=== PATIENT | female | born 1985 | race Caucasian/White ===

== ENCOUNTER 2017-08-09 12:05 | Inpatient (IN) | payer MEDICAID, SELFPAY ==
[2017-08-09] VITALS (14 sets, daily range): BP systolic 68–135; BP diastolic 44–86; PULSE 94–126; RESP 16–22; TEMP 36.2–38.1; O2SAT 96–100; BMI 24.5; BMI 25.2
--- NOTE | 2017-08-09 12:35 | RAD_ITS ---
STUDY: X-RAY CHEST REASON FOR EXAM: Female, 32 years old. Headaches, fever and body aches. TECHNIQUE: Single AP portable view of the chest. COMPARISON: Comparison is made with prior study dated June 09, 2012. FINDINGS: The lungs are clear and expanded. Scattered calcified granulomas. There is no demonstrated pleural abnormality. Sternal cerclage wires are present from a prior sternotomy. Mitral valve replacement. External pacemaker is seen with the battery pack overlying the left lower quadrant. Normal mediastinum and demetra. Normal visualized pulmonary arteries. Normal visualized aortic arch and descending thoracic aorta. Normal visualized thoracic spine. Normal visualized ribs, clavicles, and shoulders. There is no demonstrated abnormality of the visualized soft tissue structures of the upper abdomen. RAD/Chest 1 View (Portable) IMPRESSION: Status post mitral valve replacement. No acute abnormality is seen. Electronically Signed: Carlos Resendez MD at 12:59 EST Tel [phone], Service support ,
[2017-08-09] MEDS: 0.9% Normal Saline 1,000 ML 1000 ML IV ×3 (13:05→16:52)
[2017-08-09 13:29] LABS: ALB/GLOB Ratio 0.7 RATIO (0.9-2.4); AST(SGOT) 17 U/L (15-37); Alanine Aminotransfer ALT/SGPT 18 U/L (13-56); Albumin, Serum 2.3 g/dL (3.2-5.0); Alkaline Phosphatase 81 U/L (45-117); Anion Gap 9 (5-15); BUN 11 mg/dL (7-18); BUN/Creat Ratio 15.4 RATIO (10-20); Calcium,Total 7.5 mg/dL (8.5-10.1); Chloride 97 mmol/L (98-107); Creatinine, Serum 0.71 mg/dL (0.55-1.02); EST Glomerular Filtration Rate 102 mL/min (>60); Est Glom Filt Rate - Afr Amer 124 mL/min (>60); Estimated Creatinine Clearance 100.05 ml/min; Globulin 3.4 g/dL (2.2-4.2); Glucose 112 mg/dL (74-106); Protein, Total 5.7 g/dL (6.4-8.2); Sodium Level 134 mmol/L (136-145)
[2017-08-09] MEDS: Ketorolac 30 MG/ML Syringe IV (13:51)
[2017-08-09 14:21] LABS: Absolute Neutrophil Count 5.9 X10^3/uL (2.0-7.7); Basophil# 0.01 X10^3/uL; Basophil% 0.1 % (0-1); Eosinophil# 0.01 X10^3/uL; Eosinophils% 0.1 % (0-5); Hematocrit 29.9 % (37-47); Hemoglobin 10.1 g/dl (12.0-15.0); Lymphocyte % 10.4 % (19-41); Mean Corp Hgb Conc 33.8 g/gl (32-36); Mean Corpuscular Hgb 30.3 pg (27.0-32.0); Mean Corpuscular Volume 89.8 fL (81-99); Mean Platelet Vol. 12.5 fl (6.2-12.0); Monocyte# 0.91 X10^3/uL; Monocyte% 11.8 % (0-10); Neutrophil % 76.8 % (47-70); Platelet Count 51 K/mm3 (150-450); RBC Distribution Width CV 12.2 % (11.6-14.6); RBC Distribution Width SD 38.7 fl (35.1-43.9); Red Blood Count 3.33 M/mm3 (4.2-5.4); White Blood Count 7.7 K/mm3 (4.4-11.0)
[2017-08-09 14:23] LABS: POSITIVE COUNT NO; POSITIVE DIFFERENTIAL NO; POSITIVE MORPHOLOGY NO
[2017-08-09 14:43] LABS: Red Blood Cells-Urine 0 SEEN /hpf (0-5)
[2017-08-09 14:46] LABS: Color, Urine Yellow (Yellow); Glucose, Dipstick Normal (Normal); Ketone-Dipstick 5 mg/dl (Negative); Leukocyte Esterase-Dipstick 100 /ul (Negative); Nitrite-Dipstick Negative (Negative); Occult Blood-Urine 25 /ul (Negative); Protein-Dipstick 30 mg/dl (Negative); Urine Clarity Sl. Cloudy (Clear); Urine Urobilinogen 8 mg/dl (Normal)
[2017-08-09 14:51] LABS: Urine Bilirubin Dipstick 1 mg/dL (Negative)
[2017-08-09 14:53] LABS: White Blood Cells 25-50 SEEN /hpf (0-5)
[2017-08-09 14:54] LABS: Bacteria 3+ /hpf (None Seen); Mucous, Urine RARE /hpf (<or=2+); Squamous Epithelial Cells - UA 25-50 SEEN /hpf (5-10)
[2017-08-09] MEDS: Ceftriaxone 1 GM/50 ML BAG IV (15:25)
--- NOTE | 2017-08-09 15:38 | ED.VISSUMM ---
- ER Visit Summary Date of Service: 08/09/17 Chief Complaint: [Body aches] History of Present Illness: The patient is a 32 F [presents to the emergency department stating she has not been feeling well for the last 4 days. Patient states that she just hurts all over and is drinking water frequently. Patient feels like she might be dehydrated. Patient states that she is concerned about a infection in her bloodstream as she uses IV drugs and last used methamphetamines for 5 days ago. 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 Patient denies any dysuria. She denies sore throat or cough. She denies any abdominal pain. She denies any vomiting or diarrhea. Patient did not know she had a fever until she was told she had one now on arrival to the emergency department.] Physical Examination: [HEKAT-PERRLA, ANICETOMI. Cranial nerves II through XII grossly intact. TMs clear. Mucous membranes moist. No adenopathy. Cardiovascular-regular rate and rhythm without murmur or ectopy Lungs-clear to auscultation, chest wall stable without crepitus or subcu emphysema Abdomen-normoactive bowel sounds, soft, nontender, no rebound or rigidity, no peritoneal signs. Extremities-intact ?4, normal range of motion, normal pulses, atraumatic]. Patient has multiple track curry on the upper extremities. No Janeway lesions noted. Test Results: [CBC with differential showed white count 7.7, heme globin 10, hematocrit 30, platelets 51. Chemistries unremarkable. Influenza was negative. Lactate was 2.0. Chest x-ray showed nothing acute. Urinalysis obtained was a dirty specimen but did have +3 bacteria and 25-50 WBCs but also had 25-50 epis and 100 leukocyte esterase. A catheterized specimen was ordered.] Emergency Department Course and Treatment: [Patient had blood cultures ordered and had a liter normal same fluid bolus given. Patient continues to remain hypotensive and tachycardic. Patient was started on Rocephin and vancomycin IV.] Treatment Plan: [Admit for IV fluids and IV antibiotics.] Disposition: [Admit] Impression: [Sepsis syndrome Hypotension Thrombocytopenia This note was generated with Snapvine dictation software. It may contain incorrect words, spelling, and punctuation that were not noted in review of the chart prior to signing ED Disposition - Plan for ED Patient: Chief Complaint: General Illness Referrals: Care Physician,No Primary [Primary Care Provider] -
--- NOTE | 2017-08-09 15:41 | ED.DCSUM_ITS ---
- ER Visit Summary Date of Service: 08/09/17 Chief Complaint: [Body aches] History of Present Illness: The patient is a 32 F [presents to the emergency department stating she has not been feeling well for the last 4 days. Patient states that she just hurts all over and is drinking water frequently. Patient feels like she might be dehydrated. Patient states that she is concerned about a infection in her bloodstream as she uses IV drugs and last used methamphetamines for 5 days ago. 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 Patient denies any dysuria. She denies sore throat or cough. She denies any abdominal pain. She denies any vomiting or diarrhea. Patient did not know she had a fever until she was told she had one now on arrival to the emergency department.] Physical Examination: [HEKAT-PERRLA, ANICETOMI. Cranial nerves II through XII grossly intact. TMs clear. Mucous membranes moist. No adenopathy. Cardiovascular-regular rate and rhythm without murmur or ectopy Lungs-clear to auscultation, chest wall stable without crepitus or subcu emphysema Abdomen-normoactive bowel sounds, soft, nontender, no rebound or rigidity, no peritoneal signs. Extremities-intact ?4, normal range of motion, normal pulses, atraumatic]. Patient has multiple track curry on the upper extremities. No Janeway lesions noted. Test Results: [CBC with differential showed white count 7.7, heme globin 10, hematocrit 30, platelets 51. Chemistries unremarkable. Influenza was negative. Lactate was 2.0. Chest x-ray showed nothing acute. Urinalysis obtained was a dirty specimen but did have +3 bacteria and 25-50 WBCs but also had 25-50 epis and 100 leukocyte esterase. A catheterized specimen was ordered. ] Emergency Department Course and Treatment: [Patient had blood cultures ordered and had a liter normal same fluid bolus given. Patient continues to remain hypotensive and tachycardic. Patient was started on Rocephin and vancomycin IV. ] Treatment Plan: [Admit for IV fluids and IV antibiotics.] Disposition: [Admit] Impression: [Sepsis syndrome Hypotension Thrombocytopenia This note was generated with Cherrish dictation software. It may contain incorrect words, spelling, and punctuation that were not noted in review of the chart prior to signing ED Disposition - Plan for ED Patient: Chief Complaint: General Illness Referrals: Care Physician,No Primary [Primary Care Provider] -
--- NOTE | 2017-08-09 16:40 | PCM.HP.STD ---
Problem List (1) FUO (fever of unknown origin) Status: Acute (2) Hx of mitral valve replacement Status: Chronic Comment: bioprosthetic valve (3) Hx of bacterial endocarditis Status: Chronic (4) IV drug abuse Status: Chronic Comment: IV methamphetamine currently, heroin in the past (5) Hypokalemia Status: Acute (6) Hypotension Status: Acute History of Present Illness Date of Admission: 08/09/17 Chief Complaint: myalgias and arthralgias The patient is a 32 year old F with a PMH of bacterial endocarditis, bioprosthetic mitral valve replacement and intravenous drug abuse who presented to the emergency department at [facility] on 08/09/2017 complaining of diffuse myalgias and arthralgias, fever and ARGUETA. She was recently in senior living for parole violation (drug screen was +) and got out on 07/25. Since getting out she has started to use IV meth again. Tells me her last use was 6 days ago. She denies cough, dysuria, vaginal DC, CP, SOB, Sore throat, N/V/Abd pain. Denies any hx of hepatitis or HIV. She is sexually active but denies vaginal DC. Has not seen a industrial maintenance instructor since the [facility]. She has several missing teeth and caries present. Denies pain in the jaw. Vital signs at presentation to the emergency room are temperature 100.6, pulse rate 126, blood pressure 99/56, respiratory rate 18-22 and she is 98-100% saturated on room air. Blood pressure standing was 79/49. White blood cell count was 7.7 with 77% neutrophils. Hemoglobin was 10.1 with a normal MCV and normal RDW. Platelets were low at 51,000. Sodium is low at 134 and the potassium is 3.0. BUN is 11 with a creatinine of 0.71. Lactic acid is 2.0. Corrected serum calcium is within normal limits. LFTs are unremarkable. A clean catch urine was obtained and had 25-50 WBCs and 25-50 squamous epithelial cells. A straight cath urine was then obtained and is pending at this time. Urine drug screen is positive for amphetamines. X-ray shows no infiltrates, pleural effusions or pulmonary vascular congestion. She is being admitted to the hospital with a diagnosis of FUO...suspect possible endocarditis. 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 The MV replacement was done at [facility]. Past Medical History Past Medical History (Chronic Problems): Chronic Problems Hx of mitral valve replacement (Chronic) bioprosthetic valve Hx of bacterial endocarditis (Chronic) IV drug abuse (Chronic) IV methamphetamine currently, heroin in the past Allergies No Known Allergies Allergy (Verified 08/09/17 12:06) Home Medications: Ambulatory Orders Medication Instructions Recorded NK [NK] 08/09/17 Surgical History: cholecystectomy, - - section ?3, mitral valve replacement with a bioprosthetic valve at [facility] Psychiatric History: No pertinent psych hx REGISTERED PRIVATE DUTY NURSE 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 Smoking Status: Former smoker - quit recently when she was incarcerated Tobacco Use: Non-smoker Alcohol: Rare Drugs: - - IV meth - *Family History Maternal History Items: Cancer - breast CA Paternal History Items: - - colon CA Review of Systems Constitutional: Reports: Fever, Malaise, Weakness Eyes: Denies: Blurred vision, Redness, Vision Change HEENT: Reports: Head Aches. Denies: Sinus Congestion, Sinus Drainage Cardiovascular: Denies: Chest Pain, Light Headedness Respiratory: Denies: Cough, Pleuritic Pain, Shortness of Breath Gastrointestinal: Denies: Abdominal Pain, Diarrhea, Dyspepsia, Nausea, Vomiting Genitourinary: Denies: Dysuria, Frequency, Hesitancy Gynecological: Reports: - - she is sexually active. Denies: Breast symptoms, Vaginal discharge, Vaginal itching Musculoskeletal: Reports: Joint Pain, Muscle pain Skin: Denies: Jaundice, Rash, Wounds Neurological: Denies: Numbness, Tingling, Focal weakness Psychiatric: Denies: Anxiety, Depression, Homicidal Ideations, Suicidal Ideations Endocrine: Denies: Heat/ Cold Intolerance, Hx of Thyroiditis Hematologic/ Lymphatic: Denies: Hx of blood clot VTE Information - Inpt Only VTE Present on Admission: No VTE Mechan Device Prophylaxis: Knee High BLU Hose VTE Pharm Prophylaxis ordered?: Yes Patient Problems: Active and Suspected Problems FUO (fever of unknown origin) (Acute) Hypokalemia (Acute) Hypotension (Acute) - Physical Exam General: Alert, Oriented x3, Cooperative, No apparent distress, - - looks ill and is very pale HEENT: Atraumatic, PERRLA, EOMI, Normocephalic Oral: No Gingival or Mucosal Lesions/ Ulcerations, Dry Mucosa, - - she has several missing teeth and has some caries in the remaining Neck: Supple, No JVD, Negative Carotid Bruits, No Nodes, No Nuchal Rigidity, Trachea Midline Lungs: Clear to auscultation, No rhonchi, No wheeze, No rales Cardiovascular: Regular Rhythm, No Ectopic Activity, Gallops, Murmur - soft systolic MM Left axilla,, Tachycardic, - - monitor is showing ST with no ectopic activity Abdomen: Bowel Sounds Present, Soft, Non Tender, Non-Distended, - - No guarding with palpation Extremities: No clubbing, No cyanosis, No edema, No Calf Tenderness, Peripheral Pulses Normal Skin: No rashes, - - She has some track curry on the arm Neurological: Cranial nerves II-XII grossly intact, Neuro grossly intact Psych/Mental Status: Normal Affect, Appropriate Vital Signs Temp Pulse Resp BP Pulse Ox 100.6 F H 101 H 16 97/49 L 96 08/09/17 12:07 08/09/17 16:06 08/09/17 16:06 08/09/17 16:06 08/09/17 16:06 Oxygen Delivery Method Room Air Weight: 143 lb 4.807 oz Body Mass Index (BMI) 24.5 Microbiology Past 72 Hours 08/09/17 12:30 Influenza Types A,B Direct FA (ELADIA) - Final Mucosa - Nasopharyngeal Laboratory Tests Past 24 Hrs 08/09/17 08/09/17 08/09/17 13:00 13:00 13:00 WBC 7.7 RBC 3.33 L Hgb 10.1 L Hct 29.9 L MCV 89.8 MCH 30.3 MCHC 33.8 RDW 12.2 RDW Differential 38.7 Plt Count 51 L MPV 12.5 H Immature Gran % (Auto) 0.800 Neut % (Auto) 76.8 H Lymph % (Auto) 10.4 L [place] % (Auto) 11.8 H Eos % (Auto) 0.1 Baso % (Auto) 0.1 Absolute Neuts (auto) 5.9 Absolute Lymphs (auto) 0.80 L Total Counted Not Reportable Sodium 134 L Potassium 3.0 L Chloride 97 L Carbon Dioxide 28.0 Anion Gap 9 BUN 11 Creatinine 0.71 Estim Creat Clear Calc 100.05 Est GFR (MDRD) Af Amer 124 Est GFR (MDRD) Non-Af 102 BUN/Creatinine Ratio 15.4 Glucose 112 H Lactic Acid 2.0 Calcium 7.5 L Total Bilirubin 1.00 AST 17 ALT 18 Alkaline Phosphatase 81 Total Protein 5.7 L Albumin 2.3 L Globulin 3.4 Albumin/Globulin Ratio 0.7 L Urine Color Urine Clarity Urine pH Ur Specific [place] Urine Protein Urine Glucose (UA) Urine Ketones Urine Occult Blood Urine Nitrite Urine Bilirubin Urine Urobilinogen Ur Leukocyte Esterase Urine RBC Urine WBC Ur Squamous Epith Cells Urine Bacteria Urine Mucus Urine Opiates Screen Urine Methadone Screen Ur Barbiturates Screen Ur Phencyclidine Scrn Ur Amphetamines Screen U Methamphetamin-MDMA U Benzodiazepines Scrn Urine Cocaine Screen U Cannabinoids Screen Ur Drug Screen Comment 08/09/17 08/09/17 14:30 16:00 WBC RBC Hgb Hct MCV MCH MCHC RDW RDW Differential Plt Count MPV Immature Gran % (Auto) Neut % (Auto) Lymph % (Auto) [place] % (Auto) Eos % (Auto) Baso % (Auto) Absolute Neuts (auto) Absolute Lymphs (auto) Total Counted Sodium Potassium Chloride Carbon Dioxide Anion Gap BUN Creatinine Estim Creat Clear Calc Est GFR (MDRD) Af Amer Est GFR (MDRD) Non-Af BUN/Creatinine Ratio Glucose Lactic Acid Calcium Total Bilirubin AST ALT Alkaline Phosphatase Total Protein Albumin Globulin Albumin/Globulin Ratio Urine Color Yellow Urine Clarity Sl. Cloudy Urine pH 6.0 Ur Specific [place] 1.010 Urine Protein 30 H Urine Glucose (UA) Normal Urine Ketones 5 H Urine Occult Blood 25 H Urine Nitrite Negative Urine Bilirubin 1 H Urine Urobilinogen 8 H Ur Leukocyte Esterase 100 H Urine RBC 0 SEEN Urine WBC 25-50 SEEN Ur Squamous Epith Cells 25-50 SEEN Urine Bacteria 3+ Urine Mucus RARE Urine Opiates Screen Pending Urine Methadone Screen Pending Ur Barbiturates Screen Pending Ur Phencyclidine Scrn Pending Ur Amphetamines Screen Pending U Methamphetamin-MDMA Pending U Benzodiazepines Scrn Pending Urine Cocaine Screen Pending U Cannabinoids Screen Pending Ur Drug Screen Comment Assessment/Plan Active and Suspected Problems FUO (fever of unknown origin) (Acute) Hypokalemia (Acute) Hypotension (Acute) Impressions 1. FUO - doubt UTI since she is asymptomatic. Suspect recurrent endocarditis 2. Hypotension - corrected with IVF 3. hx of IV drug abuse 4. hx of bacterial endocarditis - S/P bioprosthetic MV replacement 5. poor dental hygiene 6. hypokalemia 7. Hyponatremia Admit to a monitored bed on PCU continue the Vanco and the Rocephin started in the ER BC's were drawn in the ER and she has had a straight cath urine sent ECHO HIV, hepatitis panel If the UA is negative will consult ID to participate in management Continue IVF's and replace the potassium If the UA is negative will consult Cardiology Obtain records from [facility] for DVT prophylaxis Serial CE's
[2017-08-09 16:50] LABS: Amphetamine Urine VISTA POSITIVE (<1000 ng/mL); Barbiturate Urine VISTA NEGATIVE (< 200 ng/mL); Benzodiazepine Urine VISTA NEGATIVE (< 200 ng/mL); Cocaine Urine VISTA NEGATIVE (< 300 ng/mL); Ecstacy Urine VISTA NEGATIVE (< 500 ng/mL); Methadone Urine VISTA NEGATIVE (< 300 ng/mL); PCP Urine VISTA NEGATIVE (< 25 ng/mL); THC Urine VISTA NEGATIVE (< 50 ng/mL); Vista UDS pH Range 5
--- NOTE | 2017-08-09 16:59 | HP.PCM_ITS ---
Problem List (1) FUO (fever of unknown origin) Status: Acute (2) Hx of mitral valve replacement Status: Chronic Comment: bioprosthetic valve (3) Hx of bacterial endocarditis Status: Chronic (4) IV drug abuse Status: Chronic Comment: IV methamphetamine currently, heroin in the past (5) Hypokalemia Status: Acute (6) Hypotension Status: Acute History of Present Illness Date of Admission: 08/09/17 Chief Complaint: myalgias and arthralgias The patient is a 32 year old F with a PMH of bacterial endocarditis, bioprosthetic mitral valve replacement and intravenous drug abuse who presented to the emergency department at [facility] on 08/09/2017 complaining of diffuse myalgias and arthralgias, fever and ARGUETA. She was recently in [facility] for [facility] (drug screen was +) and got out on . Since getting out she has started to use IV meth again. Tells me her last use was 6 days ago. She denies cough, dysuria, vaginal DC, CP, SOB, Sore throat , N/V/Abd pain. Denies any hx of hepatitis or HIV. She is sexually active but denies vaginal DC. Has not seen a metallurgical laboratory assistant since the [facility]. She has several missing teeth and caries present. Denies pain in the jaw. Vital signs at presentation to the emergency room are temperature 100.6, pulse rate 126, blood pressure 99/56, respiratory rate 18-22 and she is 98-100% saturated on room air. Blood pressure standing was 79/49. White blood cell count was 7.7 with 77 % neutrophils. Hemoglobin was 10.1 with a normal MCV and normal RDW. Platelets were low at 51,000. Sodium is low at 134 and the potassium is 3.0. BUN is 11 with a creatinine of 0.71. Lactic acid is 2.0. Corrected serum calcium is within normal limits. LFTs are unremarkable. A clean catch urine was obtained and had 25-50 WBCs and 25-50 squamous epithelial cells. A straight cath urine was then obtained and is pending at this time. Urine drug screen is positive for amphetamines. X-ray shows no infiltrates, pleural effusions or pulmonary vascular congestion. She is being admitted to the hospital with a diagnosis of FUO...suspect possible endocarditis. 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 The MV replacement was done at [facility]. Past Medical History Past Medical History (Chronic Problems): Chronic Problems Hx of mitral valve replacement (Chronic) bioprosthetic valve Hx of bacterial endocarditis (Chronic) IV drug abuse (Chronic) IV methamphetamine currently, heroin in the past Allergies No Known Allergies Allergy (Verified 08/09/17 12:06) Home Medications: Ambulatory Orders Medication Instructions Recorded NK [NK] 08/09/17 Surgical History: cholecystectomy, - - section ?3, mitral valve replacement with a bioprosthetic valve at [facility] Psychiatric History: No pertinent psych hx PLATE SHOP HELPER History: No pertinent PLATE SHOP HELPER history Lives: With Family - she is currently living with her GM. Smoking Status: Former smoker - quit recently when she was incarcerated Tobacco Use: Non-smoker Alcohol: Rare Drugs: - - IV meth - *Family History Maternal History Items: Cancer - breast CA Paternal History Items: - - colon CA Review of Systems Constitutional: Reports: Fever, Malaise, Weakness Eyes: Denies: Blurred vision, Redness, Vision Change HEENT: Reports: Head Aches. Denies: Sinus Congestion, Sinus Drainage Cardiovascular: Denies: Chest Pain, Light Headedness Respiratory: Denies: Cough, Pleuritic Pain, Shortness of Breath Gastrointestinal: Denies: Abdominal Pain, Diarrhea, Dyspepsia, Nausea, Vomiting Genitourinary: Denies: Dysuria, Frequency, Hesitancy Gynecological: Reports: - - she is sexually active. Denies: Breast symptoms, Vaginal discharge, Vaginal itching Musculoskeletal: Reports: Joint Pain, Muscle pain Skin: Denies: Jaundice, Rash, Wounds Neurological: Denies: Numbness, Tingling, Focal weakness Psychiatric: Denies: Anxiety, Depression, Homicidal Ideations, Suicidal Ideations Endocrine: Denies: Heat/ Cold Intolerance, Hx of Thyroiditis Hematologic/ Lymphatic: Denies: Hx of blood clot VTE Information - Inpt Only VTE Present on Admission: No VTE Mechan Device Prophylaxis: Knee High BLU Hose VTE Pharm Prophylaxis ordered?: Yes Patient Problems: Active and Suspected Problems FUO (fever of unknown origin) (Acute) Hypokalemia (Acute) Hypotension (Acute) - Physical Exam General: Alert, Oriented x3, Cooperative, No apparent distress, - - looks ill and is very pale HEENT: Atraumatic, PERRLA, EOMI, Normocephalic Oral: No Gingival or Mucosal Lesions/ Ulcerations, Dry Mucosa, - - she has several missing teeth and has some caries in the remaining Neck: Supple, No JVD, Negative Carotid Bruits, No Nodes, No Nuchal Rigidity, Trachea Midline Lungs: Clear to auscultation, No rhonchi, No wheeze, No rales Cardiovascular: Regular Rhythm, No Ectopic Activity, Gallops, Murmur - soft systolic MM Left axilla,, Tachycardic, - - monitor is showing ST with no ectopic activity Abdomen: Bowel Sounds Present, Soft, Non Tender, Non-Distended, - - No guarding with palpation Extremities: No clubbing, No cyanosis, No edema, No Calf Tenderness, Peripheral Pulses Normal Skin: No rashes, - - She has some track curry on the arm Neurological: Cranial nerves II-XII grossly intact, Neuro grossly intact Psych/Mental Status: Normal Affect, Appropriate Vital Signs Temp Pulse Resp BP Pulse Ox 100.6 F H 101 H 16 97/49 L 96 08/09/17 12:07 08/09/17 16:06 08/09/17 16:06 08/09/17 16:06 08/09/17 16:06 Oxygen Delivery Method Room Air Weight: 143 lb 4.807 oz Body Mass Index (BMI) 24.5 Microbiology Past 72 Hours 08/09/17 12:30 Influenza Types A,B Direct FA (ELADIA) - Final Mucosa - Nasopharyngeal Laboratory Tests Past 24 Hrs 08/09/17 08/09/17 08/09/17 13:00 13:00 13:00 WBC 7.7 RBC 3.33 L Hgb 10.1 L Hct 29.9 L MCV 89.8 MCH 30.3 MCHC 33.8 RDW 12.2 RDW Differential 38.7 Plt Count 51 L MPV 12.5 H Immature Gran % (Auto) 0.800 Neut % (Auto) 76.8 H Lymph % (Auto) 10.4 L [place] % (Auto) 11.8 H Eos % (Auto) 0.1 Baso % (Auto) 0.1 Absolute Neuts (auto) 5.9 Absolute Lymphs (auto) 0.80 L Total Counted Not Reportable Sodium 134 L Potassium 3.0 L Chloride 97 L Carbon Dioxide 28.0 Anion Gap 9 BUN 11 Creatinine 0.71 Estim Creat Clear Calc 100.05 Est GFR (MDRD) Af Amer 124 Est GFR (MDRD) Non-Af 102 BUN/Creatinine Ratio 15.4 Glucose 112 H Lactic Acid 2.0 Calcium 7.5 L Total Bilirubin 1.00 AST 17 ALT 18 Alkaline Phosphatase 81 Total Protein 5.7 L Albumin 2.3 L Globulin 3.4 Albumin/Globulin Ratio 0.7 L Urine Color Urine Clarity Urine pH Ur Specific [place] Urine Protein Urine Glucose (UA) Urine Ketones Urine Occult Blood Urine Nitrite Urine Bilirubin Urine Urobilinogen Ur Leukocyte Esterase Urine RBC Urine WBC Ur Squamous Epith Cells Urine Bacteria Urine Mucus Urine Opiates Screen Urine Methadone Screen Ur Barbiturates Screen Ur Phencyclidine Scrn Ur Amphetamines Screen U Methamphetamin-MDMA U Benzodiazepines Scrn Urine Cocaine Screen U Cannabinoids Screen Ur Drug Screen Comment 08/09/17 08/09/17 14:30 16:00 WBC RBC Hgb Hct MCV MCH MCHC RDW RDW Differential Plt Count MPV Immature Gran % (Auto) Neut % (Auto) Lymph % (Auto) [place] % (Auto) Eos % (Auto) Baso % (Auto) Absolute Neuts (auto) Absolute Lymphs (auto) Total Counted Sodium Potassium Chloride Carbon Dioxide Anion Gap BUN Creatinine Estim Creat Clear Calc Est GFR (MDRD) Af Amer Est GFR (MDRD) Non-Af BUN/Creatinine Ratio Glucose Lactic Acid Calcium Total Bilirubin AST ALT Alkaline Phosphatase Total Protein Albumin Globulin Albumin/Globulin Ratio Urine Color Yellow Urine Clarity Sl. Cloudy Urine pH 6.0 Ur Specific [place] 1.010 Urine Protein 30 H Urine Glucose (UA) Normal Urine Ketones 5 H Urine Occult Blood 25 H Urine Nitrite Negative Urine Bilirubin 1 H Urine Urobilinogen 8 H Ur Leukocyte Esterase 100 H Urine RBC 0 SEEN Urine WBC 25-50 SEEN Ur Squamous Epith Cells 25-50 SEEN Urine Bacteria 3+ Urine Mucus RARE Urine Opiates Screen Pending Urine Methadone Screen Pending Ur Barbiturates Screen Pending Ur Phencyclidine Scrn Pending Ur Amphetamines Screen Pending U Methamphetamin-MDMA Pending U Benzodiazepines Scrn Pending Urine Cocaine Screen Pending U Cannabinoids Screen Pending Ur Drug Screen Comment Assessment/Plan Active and Suspected Problems FUO (fever of unknown origin) (Acute) Hypokalemia (Acute) Hypotension (Acute) Impressions 1. FUO - doubt UTI since she is asymptomatic. Suspect recurrent endocarditis 2. Hypotension - corrected with IVF 3. hx of IV drug abuse 4. hx of bacterial endocarditis - S/P bioprosthetic MV replacement 5. poor dental hygiene 6. hypokalemia 7. Hyponatremia Admit to a monitored bed on PCU continue the Vanco and the Rocephin started in the ER BC's were drawn in the ER and she has had a straight cath urine sent ECHO HIV, hepatitis panel If the UA is negative will consult ID to participate in management Continue IVF's and replace the potassium If the UA is negative will consult Cardiology Obtain records from [facility] for DVT prophylaxis Serial CE's
[2017-08-09] MEDS: Acetaminophen 500 MG Tablet 1000 MG PO (17:33)
[2017-08-09 18:23] LABS: Internal QC Validated? YES +Cl - CLEAR BKGD; Pregnancy, Urine Negative Negative
[2017-08-09 19:04] LABS: Erythrocyte Sedimentation Rate 5 mm/hr (0-20)
[2017-08-09] MEDS: Ibuprofen 600 MG Tablet PO (19:04)
[2017-08-09 19:14] LABS: International Normalized Ratio 1.4; Prothrombin Time (Protime)PT. 17.6 SECONDS (11.7-14.9)
[2017-08-09 19:15] LABS: Partial Thromboplast Time 50.8 Seconds (24.1-36.2)
[2017-08-09 19:19] LABS: Magnesium 1.7 mg/dL (1.6-2.6)
[2017-08-09 22:56] LABS: M R Staph aureus DNA By PCR POSITIVE (Negative); Probe Check PASS
[2017-08-09] MEDS: 0.9% Normal Saline 1,000 ML 999 ML IV (23:21)
[2017-08-10] VITALS (65 sets, daily range): BP systolic 65–124; BP diastolic 35–75; PULSE 96–123; RESP 16–31; TEMP 36.2–38.7; O2SAT 91–100
[2017-08-10] MEDS: Piperacil/Tazobactam 3.375 GM/50 ML ML IV ×4 (00:25→21:15)
[2017-08-10] MEDS: 0.9% NaCl Peripheral Flush Adult/Peds IV ×5 (00:25→21:16)
[2017-08-10] MEDS: 0.9% Normal Saline 1,000 ML 250 ML IV ×2 (00:25→02:18)
--- NOTE | 2017-08-10 01:05 | NURSING ---
report called to Sally in ICU
--- NOTE | 2017-08-10 01:15 | NURSING ---
Offered to call any family or friends to alert them about change of status, but patient refused
--- NOTE | 2017-08-10 01:25 | RAD_ITS ---
STUDY: X-RAY CHEST REASON FOR EXAM: Female, 32 years old. Central line placement TECHNIQUE: Single frontal view COMPARISON: 08/09/2017 FINDINGS: There is a RIGHT-sided central venous catheter. The tip is in the superior vena cava. There are bibasilar infiltrates greater on the RIGHT. There is NO pleural effusion. There is NO pneumothorax. Normal size heart. There has been open heart surgery. Normal visualized pulmonary arteries. Normal visualized aortic arch and descending thoracic aorta. Normal visualized thoracic spine. Normal visualized ribs, clavicles, and shoulders. There is no demonstrated abnormality of the visualized soft tissue structures of the upper abdomen. RAD/CXR for Line Placement IMPRESSION: There is a RIGHT-sided central venous catheter. The tip is in the superior vena cava. There are bibasilar infiltrates greater on the RIGHT. There is NO pleural effusion. There is NO pneumothorax. Normal size heart. There has been open heart surgery. Electronically Signed: Will Green MD at 3:30 EST , Service support ,
--- NOTE | 2017-08-10 01:45 | NURSING ---
Dr. Caba at bedside to insert central line. Informed consent signed by patient and witnessed by this RN.
[2017-08-10] MEDS: oxyCODONE 5 MG Tablet PO ×2 (02:37→09:00)
--- NOTE | 2017-08-10 02:38 | PCM.OP.BLANK ---
Problem List (1) poor peripheral iv line Status: Acute (2) Septic shock Status: Acute Operative Report Date of Procedure: 08/10/17 Procedure note for right subclavian central venous catheter placement Indication: Need for vasopressor for septic shock. Poor peripheral line access. IV drug use. Patient signed informed consent after risk and benefit were explained. Right subclavian region and neck was sterilized and draped. Under local anesthesia, right subclavian vein was accessed. Under guidewire, triple line central venous catheter was inserted. Good blood flow return confirmed. No hematoma. Central venous catheter was secured. Dressing done. Chest x-ray ordered. Chest x-ray shows tip of central venous catheter at cavoatrial junction. No pneumothorax.
--- NOTE | 2017-08-10 02:45 | PCM.HOSP.N ---
Hospitalist Note Patient was seen and examined multiple times. Earlier, patient was admitted for fever of unknown origin, hypotension with history of IV drug abuse, bacterial endocarditis history status post bioprosthetic mitral valve replacement. During the last night, August 01, 2017 patient continued to have hypotension even on 5-6 L of IV fluid normal saline bolus. Microbiology lab called. Patient is growing gram-positive cocci and anaerobes in both bottles of blood culture. Patient was on IV vancomycin and ceftriaxone. IV antibiotic changed to vancomycin and Zosyn to cover gram-positive cocci, gram-negative and anaerobes too. Patient transferred to ICU. Right subclavian central venous catheter inserted. Patient started on IV norepinephrine drip. Measure restrict I and o's . Clark catheter insertion. Slowly titrate the IV fluid to keep it 50 mL/h as the blood pressure improves. Product Analyst and ID consult. Total time spent more than 35 minutes
--- NOTE | 2017-08-10 02:51 | CCHN_ITS ---
Hospitalist Note Patient was seen and examined multiple times. Earlier, patient was admitted for fever of unknown origin, hypotension with history of IV drug abuse, bacterial endocarditis history status post bioprosthetic mitral valve replacement. During the last night, August 01, 2017 patient continued to have hypotension even on 5-6 L of IV fluid normal saline bolus. Microbiology lab called. Patient is growing gram-positive cocci and anaerobes in both bottles of blood culture. Patient was on IV vancomycin and ceftriaxone. IV antibiotic changed to vancomycin and Zosyn to cover gram-positive cocci, gram-negative and anaerobes too. Patient transferred to ICU. Right subclavian central venous catheter inserted. Patient started on IV norepinephrine drip. Measure restrict I and o's . Clark catheter insertion. Slowly titrate the IV fluid to keep it 50 mL/h as the blood pressure improves. Swinging Cut Off Saw Operator and ID consult. Total time spent more than 35 minutes
[2017-08-10] MEDS: 0.9% NaCl IVPB Med Flush (250 mL) 15 ML IV (03:29)
[2017-08-10] MEDS: Ondansetron 4 MG/2 ML Vial IV (03:29)
[2017-08-10 05:11] LABS: Hematocrit 30.1 % (37-47); Hemoglobin 10.1 g/dl (12.0-15.0); Mean Corp Hgb Conc 33.6 g/gl (32-36); Mean Corpuscular Hgb 30.2 pg (27.0-32.0); Mean Corpuscular Volume 90.1 fL (81-99); Mean Platelet Vol. 11.9 fl (6.2-12.0); RBC Distribution Width CV 12.6 % (11.6-14.6); RBC Distribution Width SD 40.6 fl (35.1-43.9); Red Blood Count 3.34 M/mm3 (4.2-5.4); White Blood Count 11.5 K/mm3 (4.4-11.0)
[2017-08-10 05:13] LABS: Differential Indicated MANUAL DIFF; POSITIVE COUNT YES; POSITIVE DIFFERENTIAL NO; POSITIVE MORPHOLOGY YES; Platelet Count 33 K/mm3 (150-450)
[2017-08-10 05:17] LABS: Phosphorus 2.2 mg/dL (2.5-4.9)
[2017-08-10 05:24] LABS: ALB/GLOB Ratio 0.6 RATIO (0.9-2.4); AST(SGOT) 32 U/L (15-37); Alanine Aminotransfer ALT/SGPT 18 U/L (13-56); Albumin, Serum 1.7 g/dL (3.2-5.0); Alkaline Phosphatase 90 U/L (45-117); Anion Gap 8 (5-15); BUN 15 mg/dL (7-18); BUN/Creat Ratio 13.6 RATIO (10-20); Calcium,Total 6.7 mg/dL (8.5-10.1); Chloride 108 mmol/L (98-107); EST Glomerular Filtration Rate 62 mL/min (>60); Est Glom Filt Rate - Afr Amer 75 mL/min (>60); Estimated Creatinine Clearance 64.58 ml/min; Globulin 2.8 g/dL (2.2-4.2); Glucose 134 mg/dL (74-106); Magnesium 1.4 mg/dL (1.6-2.6); Potassium 3.8 mmol/L (3.5-5.1); Protein, Total 4.5 g/dL (6.4-8.2); Sodium Level 137 mmol/L (136-145)
--- NOTE | 2017-08-10 05:55 | EKG12_ITS ---
Test Reason : Blood Pressure : / mmHG Vent. Rate : 105 BPM Atrial Rate : 105 BPM P-R Int : 154 ms QRS Dur : 172 ms QT Int : 394 ms P-R-T Axes : 081 -58 104 degrees QTc Int : 520 ms Atrial-sensed ventricular-paced rhythm Abnormal ECG Confirmed by OTONIEL DEAN, KESHAWN ([id number]), editor newspaper LYNDSEY GALLARDO ([id number]) on 08/16/2017 1:25:13 PM Referred By: Confirmed By:KESHAWN FREDERICK MD
[2017-08-10 06:15] LABS: Lymphocyte 5 % (19-41); Metamyelocyte 2 % (0-1); Monocyte 2 % (0-10); Neutrophil-Band 6 % (0-5); Neutrophil-Segmented 85 % (47-70); Total Cells Counted 100 (MANUAL DIFF)
[2017-08-10 06:16] LABS: Microcytosis 1+; Platelet Estimate MKD DEC (ADEQ); Platelet Morphology LARGE; Red Cell Morphology N CHROM NORMAL (NORM C&C)
[2017-08-10 06:18] LABS: Absolute Lymphocyte Count 0.58 X10^3/ul (0.83-4.51); Absolute Neutrophil Count 10.5 X10^3/uL (2.0-7.7)
--- NOTE | 2017-08-10 06:43 | PCM.CON.CC ---
Reason for Consult Date of Consultation: 08/10/17 Reason for Consultation: Septic shock secondary to gram-positive bacteremia History of Present Illness: The patient is a 32-year-old female, with a history as outlined below, who initially presented to the emergency department on August 09 with generalized malaise, arthralgias and myalgias. The patient does have a history of IV drug abuse and last used methamphetamine approximate 5 days prior to arrival in the emergency department. 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 She also has a bioprosthetic valve in place. The patient was also recently in assisted and was released on July 25. Upon her release from custody, the patient again started using methamphetamine. The patient reports that she was treated at [facility] for her tricuspid valve endocarditis in November 2016. Per her account, her valve was surgically replaced and a pacemaker was inserted. She reports that her symptoms upon presentation to the hospital were quite similar to what she experienced this past summer when she had bacterial endocarditis. On arrival to the emergency department, the patient was noted to be febrile, tachycardic and hypotensive. Initial blood work revealed no evidence of a leukocytosis. She did have evidence of normocytic anemia and thrombocytopenia, the latter of which is new. Coagulation profile revealed an INR of 1.4. Chemistry profile was notable for a serum potassium of 3.0. Serum lactate was normal at 2.0. MRSA screen was positive. Urine toxicology screen was positive for amphetamines. Plain film chest x-ray revealed no acute cardiopulmonary process. The patient was initially admitted to the general medical floor for ongoing management. She received IV fluids and antibiotics. However, despite aggressive fluid resuscitation, the patient remained hypotensive, subsequently requiring transfer to the medical intensive care unit. Overnight, a central venous catheter was placed and the patient was initiated on levophed. Blood cultures were found to be positive for MRSA. In addition, the patient's anaerobic bottle was also noted to be positive. The patient is currently on vancomycin and Zosyn. I did call and speak with cardiology, Dr. Stein this morning regarding the patient's clinical state and the need for transesophageal echocardiogram. He is planning tentatively to complete a SURYA this morning. The patient has been made n.p.o. Past Medical History Past Medical History (Chronic Problems): Chronic Problems Hx of mitral valve replacement (Chronic) bioprosthetic valve Hx of bacterial endocarditis (Chronic) IV drug abuse (Chronic) IV methamphetamine currently, heroin in the past Allergies No Known Allergies Allergy (Verified 08/09/17 12:06) Home Medications: Ambulatory Orders Medication Instructions Recorded NK [NK] 08/09/17 Surgical History: cholecystectomy, - - section ?3, mitral valve replacement with a bioprosthetic valve at [facility] Psychiatric History: No pertinent psych hx [employer] History: No pertinent [employer] history Lives: With Family - she is currently living with her GM. Smoking Status: Former smoker Tobacco Use: Non-smoker Alcohol: Rare Drugs: - - IV meth - *Family History Maternal History Items: Cancer - breast CA Paternal History Items: - - colon CA Review of Systems Constitutional: Reports: Fever, Malaise, Fatigue Eyes: Denies: Blurred vision, Double vision HEENT: Denies: Head Aches, Sinus Congestion, Sinus Drainage Cardiovascular: Denies: Chest Pain, Palpitations Respiratory: Denies: Cough, Shortness of breath at rest, Sputum production Gastrointestinal: Denies: Abdominal Pain, Nausea, Vomiting Genitourinary: Denies: Dysuria Musculoskeletal: Denies: Joint Pain, Joint Tenderness Skin: Denies: Rash, Wounds Neurological: Denies: Numbness, Tingling, Focal weakness Psychiatric: Reports: - - Long standing drug use Hematologic/ Lymphatic: Reports: Anemia. Denies: Easy Bruising, Easy Bleeding Patient Problems: Active and Suspected Problems FUO (fever of unknown origin) (Acute) Hypokalemia (Acute) Hypotension (Acute) poor peripheral iv line (Acute) Septic shock (Acute) Objective: The patient's most recent lab work, culture data and imaging studies have all been personally reviewed. Initial blood cultures dated August 09 were positive for MRSA and an unknown anaerobe. - Physical Exam General: Alert, Oriented x3, Cooperative, No apparent distress HEENT: Atraumatic, PERRLA, Normocephalic Oral: No Gingival or Mucosal Lesions/ Ulcerations, Dry Mucosa Neck: Supple, No JVD, Trachea Midline, - - Subclavian central venous catheter in place Lungs: No rhonchi, No wheeze, No rales, Diminished, Tachypneic Cardiovascular: Normal S1, Normal S2, No murmurs, Tachycardic Abdomen: Bowel Sounds Present, Soft, Non Tender Extremities: No clubbing, No cyanosis, No edema Skin: - - Multiple tattoos. Track curry on arms. Musculoskeletal: No Muscle Wasting Lymphatic: No Cervical, Supraclavicular, or Inguinal Adenopathy Neurological: Neuro grossly intact Psych/Mental Status: Normal Affect, Appropriate Vital Signs Temp Pulse Resp BP Pulse Ox 97.3 F L 104 H 26 H 94/52 L 98 08/10/17 03:00 08/10/17 06:15 08/10/17 06:15 08/10/17 06:15 08/10/17 06:15 Oxygen Delivery Method Room Air Weight: 151 lb 7.321 oz Body Mass Index (BMI) 25.2 Intake and Output for Last 24 Hours 08/08/17 08/09/17 08/10/17 23:59 23:59 23:59 Intake Total 1789 / 1789 2662.4 / 2662.4 Output Total 115 / 115 Balance 1789 / 1789 2547.4 / 2547.4 Laboratory Tests Past 24 Hrs 08/09/17 08/09/17 08/09/17 18:36 18:36 18:36 WBC RBC Hgb Hct MCV MCH MCHC RDW RDW Differential Plt Count MPV Neut % (Auto) Absolute Neuts (auto) Absolute Lymphs (auto) Total Counted Neutrophils % (Manual) Band Neutrophils % Lymphocytes % (Manual) Monocytes % (Manual) Metamyelocytes % Diff Path Review Platelet Estimate Plt Morphology Comment RBC Morphology Microcytosis ESR 5 PT 17.6 H INR 1.4 APTT 50.8 H Sodium Potassium Chloride Carbon Dioxide Anion Gap BUN Creatinine Estim Creat Clear Calc Est GFR (MDRD) Af Amer Est GFR (MDRD) Non-Af BUN/Creatinine Ratio Glucose Calcium Phosphorus Magnesium 1.7 Total Bilirubin AST ALT Alkaline Phosphatase Troponin I < 0.02 C-React Prot Ext Range 180.00 H Total Protein Albumin Globulin Albumin/Globulin Ratio Hepatitis A IgM Ab Hepatitis A Ab Total Hep Bs Antigen Hep B Core Total Ab Hep B Core IgM Ab Hepatitis C Comment MRSA (PCR) 08/09/17 08/09/17 08/09/17 18:36 19:00 22:41 WBC RBC Hgb Hct MCV MCH MCHC RDW RDW Differential Plt Count MPV Neut % (Auto) Absolute Neuts (auto) Absolute Lymphs (auto) Total Counted Neutrophils % (Manual) Band Neutrophils % Lymphocytes % (Manual) Monocytes % (Manual) Metamyelocytes % Diff Path Review Platelet Estimate Plt Morphology Comment RBC Morphology Microcytosis ESR PT INR APTT Sodium Potassium Chloride Carbon Dioxide Anion Gap BUN Creatinine Estim Creat Clear Calc Est GFR (MDRD) Af Amer Est GFR (MDRD) Non-Af BUN/Creatinine Ratio Glucose Calcium Phosphorus Magnesium Total Bilirubin AST ALT Alkaline Phosphatase Troponin I < 0.02 C-React Prot Ext Range Total Protein Albumin Globulin Albumin/Globulin Ratio Hepatitis A IgM Ab Pending Hepatitis A Ab Total Pending Hep Bs Antigen Pending Hep B Core Total Ab Pending Hep B Core IgM Ab Pending Hepatitis C Comment Pending MRSA (PCR) POSITIVE H 08/10/17 08/10/17 08/10/17 02:30 04:25 04:25 WBC 11.5 H RBC 3.34 L Hgb 10.1 L Hct 30.1 L MCV 90.1 MCH 30.2 MCHC 33.6 RDW 12.6 RDW Differential 40.6 Plt Count 33 L* MPV 11.9 Neut % (Auto) Not Reportable Absolute Neuts (auto) 10.5 H Absolute Lymphs (auto) 0.58 L Total Counted 100 Neutrophils % (Manual) 85 H Band Neutrophils % 6 H Lymphocytes % (Manual) 5 L Monocytes % (Manual) 2 Metamyelocytes % 2 H Diff Path Review May foll Platelet Estimate MKD DEC Plt Morphology Comment LARGE RBC Morphology N CHROM Microcytosis 1+ ESR PT INR APTT Sodium 137 Potassium 3.8 Chloride 108 H Carbon Dioxide 21.0 Anion Gap 8 BUN 15 Creatinine 1.10 H Estim Creat Clear Calc 64.58 Est GFR (MDRD) Af Amer 75 Est GFR (MDRD) Non-Af 62 BUN/Creatinine Ratio 13.6 Glucose 134 H Calcium 6.7 L Phosphorus Magnesium 1.4 L Total Bilirubin 1.70 H AST 32 ALT 18 Alkaline Phosphatase 90 Troponin I < 0.02 C-React Prot Ext Range Total Protein 4.5 L Albumin 1.7 L Globulin 2.8 Albumin/Globulin Ratio 0.6 L Hepatitis A IgM Ab Hepatitis A Ab Total Hep Bs Antigen Hep B Core Total Ab Hep B Core IgM Ab Hepatitis C Comment MRSA (PCR) 08/10/17 04:25 WBC RBC Hgb Hct MCV MCH MCHC RDW RDW Differential Plt Count MPV Neut % (Auto) Absolute Neuts (auto) Absolute Lymphs (auto) Total Counted Neutrophils % (Manual) Band Neutrophils % Lymphocytes % (Manual) Monocytes % (Manual) Metamyelocytes % Diff Path Review Platelet Estimate Plt Morphology Comment RBC Morphology Microcytosis ESR PT INR APTT Sodium Potassium Chloride Carbon Dioxide Anion Gap BUN Creatinine Estim Creat Clear Calc Est GFR (MDRD) Af Amer Est GFR (MDRD) Non-Af BUN/Creatinine Ratio Glucose Calcium Phosphorus 2.2 L Magnesium Total Bilirubin AST ALT Alkaline Phosphatase Troponin I C-React Prot Ext Range Total Protein Albumin Globulin Albumin/Globulin Ratio Hepatitis A IgM Ab Hepatitis A Ab Total Hep Bs Antigen Hep B Core Total Ab Hep B Core IgM Ab Hepatitis C Comment MRSA (PCR) Clinical Impression(s) from Imaging Studies Chest X-Ray 08/09/17 12:35 IMPRESSION: Status post mitral valve replacement. No acute abnormality is seen. Electronically Signed: Carlos Resendez MD at 12:59 EST Tel [phone], Service support , Chest X-Ray 08/10/17 01:25 IMPRESSION: There is a RIGHT-sided central venous catheter. The tip is in the superior vena cava. There are bibasilar infiltrates greater on the RIGHT. There is NO pleural effusion. There is NO pneumothorax. Normal size heart. There has been open heart surgery. Electronically Signed: Will Green MD at 3:30 EST , Service support , Assessment/Plan Active and Suspected Problems FUO (fever of unknown origin) (Acute) Hypokalemia (Acute) Hypotension (Acute) poor peripheral iv line (Acute) Septic shock (Acute) RECOMMENDATIONS: 1. Continue broad-spectrum antibiotics, including vancomycin and Zosyn. Infectious diseases consultation is pending. 2. Proceed with transesophageal echocardiogram this morning. Cardiology is aware. 3. Patient to remain n.p.o. for now. 4. Discontinue supplemental IV fluids. Continue Levophed to maintain a mean arterial pressure at or above 65 mmHg. 5. No indication for transfusion of platelets at this time. 6. Check HIV antibody IMPRESSIONS: 1. Septic shock secondary MRSA bacterial endocarditis The patient was transferred to the ICU overnight and started on vasopressor therapy to maintain hemodynamic stability. She has been more than adequately volume resuscitated at this time. Supplemental IV fluids can be discontinued. Continue Levophed to maintain a mean arterial pressure at or above 65 mmHg. Continue broad-spectrum antimicrobial coverage. SURYA performed at the bedside this morning did reveal the presence of a large vegetation on the bioprosthetic tricuspid valve. The patient did have her valve replaced in 2017 at [facility]. The patient is now being considered for transfer to the aforementioned medical facility, accordingly. 2. Acute kidney injury Likely secondary to hemodynamic instability in the setting of #1. Continue vasopressor support to maintain a mean arterial pressure at or above 65 mmHg. Clark catheter is in place. Continue to monitor urine output. No indication for renal replacement therapy at this time. 3. Thrombocytopenia Likely secondary to #1. No overt signs of bleeding. No indication for transfusion at this time. 4. Hypomagnesemia/hypophosphatemia Electrolyte repletion has been ordered. Recheck levels in the morning. 5. Normocytic anemia/personal history of tricuspid valve endocarditis/personal history of IV drug abuse Complicates care, management, recovery and prognosis. Continue to monitor blood counts daily. ADDENDUM: I was present at the bedside with Dr. Stein during the transesophageal echocardiogram. There was what appeared to be a large fibrinous vegetation on the bioprosthetic tricuspid valve. This finding was discussed with Dr. Daley, who will contact [facility], as the patient had her valve replaced there previously in order to facilitate a transfer of care. TIME: 50 minutes of critical care time, independent of procedures, was spent addressing the patient's septic shock secondary to MRSA bacterial endocarditis, acute kidney injury, thrombocytopenia, hypomagnesemia, hypophosphatemia, review of all data and collaboration with the care team. ([id number]) Code Visit 9xxxx: [id number] Critical care first hour
--- NOTE | 2017-08-10 06:48 | ECHOTEE_ITS ---
Reason For Study: Murmur Medication SURYA probe passed without difficulty. No complications were noted. [id number] gargled and swallowed. Cetacaine Topical Aldie given X2 orally. Versed 2 mg given slow IVP. Fentanyl 25 mcg given slow IVP. Performed a rapid injection of agitated mix of 9 cc saline and 1cc air to assess for atrial septal defect. Left Ventricle Normal size and thickness. The estimated ejection fraction is 50-55 %. There is mild global hypokinesis of the left ventricle. Right Ventricle Normal size and thickness. ICD or pacer leads identified within the right ventricle. Normal systolic function. Atria Normal atrial septum. Bubble contrast study negative for right to left interatrial shunt. Normal left atrium. Normal right atrium. ICD or pacer leads identified within the right atrium. Mitral Valve The mitral valve is structurally normal. No prolapse or stenosis seen. Moderate (2+) mitral valve insufficiency. Tricuspid Valve Large, dense, mobile fibrinous vegetation seen on RA surface of bioprosthetic tricuspid valve. No evidence of solis-valvular abscess. Mild (1+) tricuspid valve insufficiency. Bioprosthetic tricuspid valve. Aortic Valve Normal aortic valve. Trisinus/trileaflet aortic valve. Pulmonic Valve Normal pulmonic valve. Vessels Normal aortic root. Normal arch. The pulmonary artery is normal size. Normal pulmonary veins. Pericardium No pericardial effusion. Interpretation Summary The estimated ejection fraction is 50-55 %. There is mild global hypokinesis of the left ventricle. Bubble contrast study negative for right to left interatrial shunt. Moderate (2+) mitral valve insufficiency. Bioprosthetic tricuspid valve. Mild (1+) tricuspid valve insufficiency. Large, dense, mobile fibrinous vegetation seen on RA surface of bioprosthetic tricuspid valve. No evidence of solis-valvular abscess. Dr Thakur notified and at bedside during procedure. .sree Physician: Wilfred Thakur D.O Performed By: Ivette Montes, DANIELLE
--- NOTE | 2017-08-10 06:54 | CON.PCM_ITS ---
Reason for Consult Date of Consultation: 08/10/17 Reason for Consultation: Septic shock secondary to gram-positive bacteremia History of Present Illness: The patient is a 32-year-old female, with a history as outlined below, who initially presented to the emergency department on August 09 with generalized malaise, arthralgias and myalgias. The patient does have a history of IV drug abuse and last used methamphetamine approximate 5 days prior to arrival in the emergency department. 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 She also has a bioprosthetic valve in place. The patient was also recently in [facility] and was released on July 25. Upon her release from custody, the patient again started using methamphetamine. The patient reports that she was treated at [facility] for her tricuspid valve endocarditis in November 2016. Per her account, her valve was surgically replaced and a pacemaker was inserted. She reports that her symptoms upon presentation to the hospital were quite similar to what she experienced this past summer when she had bacterial endocarditis. On arrival to the emergency department, the patient was noted to be febrile, tachycardic and hypotensive. Initial blood work revealed no evidence of a leukocytosis. She did have evidence of normocytic anemia and thrombocytopenia, the latter of which is new. Coagulation profile revealed an INR of 1.4. Chemistry profile was notable for a serum potassium of 3.0. Serum lactate was normal at 2.0. MRSA screen was positive. Urine toxicology screen was positive for amphetamines. Plain film chest x-ray revealed no acute cardiopulmonary process. The patient was initially admitted to the general medical floor for ongoing management. She received IV fluids and antibiotics. However, despite aggressive fluid resuscitation, the patient remained hypotensive, subsequently requiring transfer to the medical intensive care unit. Overnight, a central venous catheter was placed and the patient was initiated on levophed. Blood cultures were found to be positive for MRSA. In addition, the patient's anaerobic bottle was also noted to be positive. The patient is currently on vancomycin and Zosyn. I did call and speak with cardiology, Dr. Stein this morning regarding the patient's clinical state and the need for transesophageal echocardiogram. He is planning tentatively to complete a SURYA this morning. The patient has been made n.p.o. Past Medical History Past Medical History (Chronic Problems): Chronic Problems Hx of mitral valve replacement (Chronic) bioprosthetic valve Hx of bacterial endocarditis (Chronic) IV drug abuse (Chronic) IV methamphetamine currently, heroin in the past Allergies No Known Allergies Allergy (Verified 08/09/17 12:06) Home Medications: Ambulatory Orders Medication Instructions Recorded NK [NK] 08/09/17 Surgical History: cholecystectomy, - - section ?3, mitral valve replacement with a bioprosthetic valve at [facility] Psychiatric History: No pertinent psych hx UTILITY HAND History: No pertinent UTILITY HAND history Lives: With Family - she is currently living with her GM. Smoking Status: Former smoker Tobacco Use: Non-smoker Alcohol: Rare Drugs: - - IV meth - *Family History Maternal History Items: Cancer - breast CA Paternal History Items: - - colon CA Review of Systems Constitutional: Reports: Fever, Malaise, Fatigue Eyes: Denies: Blurred vision, Double vision HEENT: Denies: Head Aches, Sinus Congestion, Sinus Drainage Cardiovascular: Denies: Chest Pain, Palpitations Respiratory: Denies: Cough, Shortness of breath at rest, Sputum production Gastrointestinal: Denies: Abdominal Pain, Nausea, Vomiting Genitourinary: Denies: Dysuria Musculoskeletal: Denies: Joint Pain, Joint Tenderness Skin: Denies: Rash, Wounds Neurological: Denies: Numbness, Tingling, Focal weakness Psychiatric: Reports: - - Long standing drug use Hematologic/ Lymphatic: Reports: Anemia. Denies: Easy Bruising, Easy Bleeding Patient Problems: Active and Suspected Problems FUO (fever of unknown origin) (Acute) Hypokalemia (Acute) Hypotension (Acute) poor peripheral iv line (Acute) Septic shock (Acute) Objective: The patient's most recent lab work, culture data and imaging studies have all been personally reviewed. Initial blood cultures dated August 09 were positive for MRSA and an unknown anaerobe. - Physical Exam General: Alert, Oriented x3, Cooperative, No apparent distress HEENT: Atraumatic, PERRLA, Normocephalic Oral: No Gingival or Mucosal Lesions/ Ulcerations, Dry Mucosa Neck: Supple, No JVD, Trachea Midline, - - Subclavian central venous catheter in place Lungs: No rhonchi, No wheeze, No rales, Diminished, Tachypneic Cardiovascular: Normal S1, Normal S2, No murmurs, Tachycardic Abdomen: Bowel Sounds Present, Soft, Non Tender Extremities: No clubbing, No cyanosis, No edema Skin: - - Multiple tattoos. Track curry on arms. Musculoskeletal: No Muscle Wasting Lymphatic: No Cervical, Supraclavicular, or Inguinal Adenopathy Neurological: Neuro grossly intact Psych/Mental Status: Normal Affect, Appropriate Vital Signs Temp Pulse Resp BP Pulse Ox 97.3 F L 104 H 26 H 94/52 L 98 08/10/17 03:00 08/10/17 06:15 08/10/17 06:15 08/10/17 06:15 08/10/17 06:15 Oxygen Delivery Method Room Air Weight: 151 lb 7.321 oz Body Mass Index (BMI) 25.2 Intake and Output for Last 24 Hours 08/08/17 08/09/17 08/10/17 23:59 23:59 23:59 Intake Total 1789 / 1789 2662.4 / 2662.4 Output Total 115 / 115 Balance 1789 / 1789 2547.4 / 2547.4 Laboratory Tests Past 24 Hrs 08/09/17 08/09/17 08/09/17 18:36 18:36 18:36 WBC RBC Hgb Hct MCV MCH MCHC RDW RDW Differential Plt Count MPV Neut % (Auto) Absolute Neuts (auto) Absolute Lymphs (auto) Total Counted Neutrophils % (Manual) Band Neutrophils % Lymphocytes % (Manual) Monocytes % (Manual) Metamyelocytes % Diff Path Review Platelet Estimate Plt Morphology Comment RBC Morphology Microcytosis ESR 5 PT 17.6 H INR 1.4 APTT 50.8 H Sodium Potassium Chloride Carbon Dioxide Anion Gap BUN Creatinine Estim Creat Clear Calc Est GFR (MDRD) Af Amer Est GFR (MDRD) Non-Af BUN/Creatinine Ratio Glucose Calcium Phosphorus Magnesium 1.7 Total Bilirubin AST ALT Alkaline Phosphatase Troponin I < 0.02 C-React Prot Ext Range 180.00 H Total Protein Albumin Globulin Albumin/Globulin Ratio Hepatitis A IgM Ab Hepatitis A Ab Total Hep Bs Antigen Hep B Core Total Ab Hep B Core IgM Ab Hepatitis C Comment MRSA (PCR) 08/09/17 08/09/17 08/09/17 18:36 19:00 22:41 WBC RBC Hgb Hct MCV MCH MCHC RDW RDW Differential Plt Count MPV Neut % (Auto) Absolute Neuts (auto) Absolute Lymphs (auto) Total Counted Neutrophils % (Manual) Band Neutrophils % Lymphocytes % (Manual) Monocytes % (Manual) Metamyelocytes % Diff Path Review Platelet Estimate Plt Morphology Comment RBC Morphology Microcytosis ESR PT INR APTT Sodium Potassium Chloride Carbon Dioxide Anion Gap BUN Creatinine Estim Creat Clear Calc Est GFR (MDRD) Af Amer Est GFR (MDRD) Non-Af BUN/Creatinine Ratio Glucose Calcium Phosphorus Magnesium Total Bilirubin AST ALT Alkaline Phosphatase Troponin I < 0.02 C-React Prot Ext Range Total Protein Albumin Globulin Albumin/Globulin Ratio Hepatitis A IgM Ab Pending Hepatitis A Ab Total Pending Hep Bs Antigen Pending Hep B Core Total Ab Pending Hep B Core IgM Ab Pending Hepatitis C Comment Pending MRSA (PCR) POSITIVE H 08/10/17 08/10/17 08/10/17 02:30 04:25 04:25 WBC 11.5 H RBC 3.34 L Hgb 10.1 L Hct 30.1 L MCV 90.1 MCH 30.2 MCHC 33.6 RDW 12.6 RDW Differential 40.6 Plt Count 33 L* MPV 11.9 Neut % (Auto) Not Reportable Absolute Neuts (auto) 10.5 H Absolute Lymphs (auto) 0.58 L Total Counted 100 Neutrophils % (Manual) 85 H Band Neutrophils % 6 H Lymphocytes % (Manual) 5 L Monocytes % (Manual) 2 Metamyelocytes % 2 H Diff Path Review May foll Platelet Estimate MKD DEC Plt Morphology Comment LARGE RBC Morphology N CHROM Microcytosis 1+ ESR PT INR APTT Sodium 137 Potassium 3.8 Chloride 108 H Carbon Dioxide 21.0 Anion Gap 8 BUN 15 Creatinine 1.10 H Estim Creat Clear Calc 64.58 Est GFR (MDRD) Af Amer 75 Est GFR (MDRD) Non-Af 62 BUN/Creatinine Ratio 13.6 Glucose 134 H Calcium 6.7 L Phosphorus Magnesium 1.4 L Total Bilirubin 1.70 H AST 32 ALT 18 Alkaline Phosphatase 90 Troponin I < 0.02 C-React Prot Ext Range Total Protein 4.5 L Albumin 1.7 L Globulin 2.8 Albumin/Globulin Ratio 0.6 L Hepatitis A IgM Ab Hepatitis A Ab Total Hep Bs Antigen Hep B Core Total Ab Hep B Core IgM Ab Hepatitis C Comment MRSA (PCR) 08/10/17 04:25 WBC RBC Hgb Hct MCV MCH MCHC RDW RDW Differential Plt Count MPV Neut % (Auto) Absolute Neuts (auto) Absolute Lymphs (auto) Total Counted Neutrophils % (Manual) Band Neutrophils % Lymphocytes % (Manual) Monocytes % (Manual) Metamyelocytes % Diff Path Review Platelet Estimate Plt Morphology Comment RBC Morphology Microcytosis ESR PT INR APTT Sodium Potassium Chloride Carbon Dioxide Anion Gap BUN Creatinine Estim Creat Clear Calc Est GFR (MDRD) Af Amer Est GFR (MDRD) Non-Af BUN/Creatinine Ratio Glucose Calcium Phosphorus 2.2 L Magnesium Total Bilirubin AST ALT Alkaline Phosphatase Troponin I C-React Prot Ext Range Total Protein Albumin Globulin Albumin/Globulin Ratio Hepatitis A IgM Ab Hepatitis A Ab Total Hep Bs Antigen Hep B Core Total Ab Hep B Core IgM Ab Hepatitis C Comment MRSA (PCR) Clinical Impression(s) from Imaging Studies Chest X-Ray 08/09/17 12:35 IMPRESSION: Status post mitral valve replacement. No acute abnormality is seen. Electronically Signed: Carlos Resendez MD at 12:59 EST Tel [phone], Service support , Chest X-Ray 08/10/17 01:25 IMPRESSION: There is a RIGHT-sided central venous catheter. The tip is in the superior vena cava. There are bibasilar infiltrates greater on the RIGHT. There is NO pleural effusion. There is NO pneumothorax. Normal size heart. There has been open heart surgery. Electronically Signed: Will Green MD at 3:30 EST , Service support , Assessment/Plan Active and Suspected Problems FUO (fever of unknown origin) (Acute) Hypokalemia (Acute) Hypotension (Acute) poor peripheral iv line (Acute) Septic shock (Acute) RECOMMENDATIONS: 1. Continue broad-spectrum antibiotics, including vancomycin and Zosyn. Infectious diseases consultation is pending. 2. Proceed with transesophageal echocardiogram this morning. Cardiology is aware. 3. Patient to remain n.p.o. for now. 4. Discontinue supplemental IV fluids. Continue Levophed to maintain a mean arterial pressure at or above 65 mmHg. 5. No indication for transfusion of platelets at this time. 6. Check HIV antibody IMPRESSIONS: 1. Septic shock secondary MRSA bacterial endocarditis The patient was transferred to the ICU overnight and started on vasopressor therapy to maintain hemodynamic stability. She has been more than adequately volume resuscitated at this time. Supplemental IV fluids can be discontinued. Continue Levophed to maintain a mean arterial pressure at or above 65 mmHg. Continue broad-spectrum antimicrobial coverage. SURYA performed at the bedside this morning did reveal the presence of a large vegetation on the bioprosthetic tricuspid valve. The patient did have her valve replaced in 2017 at [facility]. The patient is now being considered for transfer to the aforementioned medical facility, accordingly. 2. Acute kidney injury Likely secondary to hemodynamic instability in the setting of #1. Continue vasopressor support to maintain a mean arterial pressure at or above 65 mmHg. Clark catheter is in place. Continue to monitor urine output. No indication for renal replacement therapy at this time. 3. Thrombocytopenia Likely secondary to #1. No overt signs of bleeding. No indication for transfusion at this time. 4. Hypomagnesemia/hypophosphatemia Electrolyte repletion has been ordered. Recheck levels in the morning. 5. Normocytic anemia/personal history of tricuspid valve endocarditis/personal history of IV drug abuse Complicates care, management, recovery and prognosis. Continue to monitor blood counts daily. ADDENDUM: I was present at the bedside with Dr. Stein during the transesophageal echocardiogram. There was what appeared to be a large fibrinous vegetation on the bioprosthetic tricuspid valve. This finding was discussed with Dr. Daley , who will contact [facility], as the patient had her valve replaced there previously in order to facilitate a transfer of care. TIME: 50 minutes of critical care time, independent of procedures, was spent addressing the patient's septic shock secondary to MRSA bacterial endocarditis, acute kidney injury, thrombocytopenia, hypomagnesemia, hypophosphatemia, review of all data and collaboration with the care team. ([id number]) Code Visit 9xxxx: [id number] Critical care first hour
--- NOTE | 2017-08-10 07:42 | PN_ITS ---
Patient Problems: Active and Suspected Problems FUO (fever of unknown origin) (Acute) Hypokalemia (Acute) Hypotension (Acute) poor peripheral iv line (Acute) Septic shock (Acute) Subjective: Patient is a 32-year-old female with a history of endocarditis and intravenous drug use who presented to the emergency room on 08/09/2017 complaining of myalgias, arthralgias and fever. Suspected to have recurrent endocarditis. Transferred to ICU last night for persistent hypotension despite adequate fluid resuscitation. Currently on Levophed. Antibiotic Day #2 currently Vanco and Zosyn TMAX: 100.6?F at admission Vital signs: Current blood pressure is 71/38 on 12.5 mics of Levophed. Heart rate ranges from 100-105 and she is completely paced. Fluid balance: Fluid balance since admission is positive for thousand 336. Urine output: There is only 115 cc of urine reported since admission Weight: 151 pounds, up from 146 at admission. All radiologic testing was reviewed: She has now developed patchy infiltrates with pulmonary vascular congestion All labs were personally reviewed: White blood cell count today is 11.5, up from 7.7 at admission. She had 6% bands today. Platelets are now down to 33, 000 and the hemoglobin is stable at 10.1. Creatinine is up to 1.1 from 0.71 yesterday. Calcium is 6.7 and the corrected calcium is 8.54. Phosphorus is low at 2.2 and the magnesium is low at 1.4. Albumin is 1.7 today. Microbiology: She has gram-positive cocci growing in the aerobic and anaerobic bottles. Preliminary is staph aureus. [] Tells me that she feels better today. denies cough or SOB. No BM for several days. Having some LLQ pain with palpation and the abdomen is more distended today. - Physical Exam General: Alert, Oriented x3, Cooperative, No apparent distress, Well developed, Well nourished HEENT: PERRLA, EOMI Oral: Moist Mucosa, No Gingival or Mucosal Lesions/ Ulcerations, - - has missing teeth and caries Neck: Supple, Negative Carotid Bruits, No Nodes, Trachea Midline Lungs: Clear to auscultation, - - Not tachypneic, no conversational dyspnea and no accessory muscle use. Cardiovascular: Regular Rhythm, Gallops, Murmur - very soft systolic MM in the Left axilla, Tachycardic Abdomen: Bowel Sounds Present, Soft, Distended - and tympanic.....+ pain with palpation of the LLQ, Tender Extremities: No clubbing, No cyanosis, No edema, - - No splinter hemorrhages, hands and feet are swollen today Musculoskeletal: No Muscle Wasting Neurological: Cranial nerves II-XII grossly intact, Neuro grossly intact Psych/Mental Status: Normal Affect, Appropriate Vital Signs Temp Pulse Resp BP Pulse Ox 97.3 F L 104 H 24 H 71/38 L 100 08/10/17 03:00 08/10/17 07:00 08/10/17 06:30 08/10/17 07:19 08/10/17 07:00 Oxygen Delivery Method Room Air Weight: 151 lb 7.321 oz Body Mass Index (BMI) 25.2 Intake and Output for Last 24 Hours 08/08/17 08/09/17 08/10/17 23:59 23:59 23:59 Intake Total 1789 / 1789 2662.4 / 2662.4 Output Total 115 / 115 Balance 1789 / 1789 2547.4 / 2547.4 Laboratory Tests Past 24 Hrs 08/09/17 08/09/17 08/09/17 18:36 18:36 18:36 WBC RBC Hgb Hct MCV MCH MCHC RDW RDW Differential Plt Count MPV Neut % (Auto) Absolute Neuts (auto) Absolute Lymphs (auto) Total Counted Neutrophils % (Manual) Band Neutrophils % Lymphocytes % (Manual) Monocytes % (Manual) Metamyelocytes % Diff Path Review Platelet Estimate Plt Morphology Comment RBC Morphology Microcytosis ESR 5 PT 17.6 H INR 1.4 APTT 50.8 H Sodium Potassium Chloride Carbon Dioxide Anion Gap BUN Creatinine Estim Creat Clear Calc Est GFR (MDRD) Af Amer Est GFR (MDRD) Non-Af BUN/Creatinine Ratio Glucose Calcium Phosphorus Magnesium 1.7 Total Bilirubin AST ALT Alkaline Phosphatase Troponin I < 0.02 C-React Prot Ext Range 180.00 H Total Protein Albumin Globulin Albumin/Globulin Ratio Hepatitis A IgM Ab Hepatitis A Ab Total Hep Bs Antigen Hep B Core Total Ab Hep B Core IgM Ab Hepatitis C Comment MRSA (PCR) 08/09/17 08/09/17 08/09/17 18:36 19:00 22:41 WBC RBC Hgb Hct MCV MCH MCHC RDW RDW Differential Plt Count MPV Neut % (Auto) Absolute Neuts (auto) Absolute Lymphs (auto) Total Counted Neutrophils % (Manual) Band Neutrophils % Lymphocytes % (Manual) Monocytes % (Manual) Metamyelocytes % Diff Path Review Platelet Estimate Plt Morphology Comment RBC Morphology Microcytosis ESR PT INR APTT Sodium Potassium Chloride Carbon Dioxide Anion Gap BUN Creatinine Estim Creat Clear Calc Est GFR (MDRD) Af Amer Est GFR (MDRD) Non-Af BUN/Creatinine Ratio Glucose Calcium Phosphorus Magnesium Total Bilirubin AST ALT Alkaline Phosphatase Troponin I < 0.02 C-React Prot Ext Range Total Protein Albumin Globulin Albumin/Globulin Ratio Hepatitis A IgM Ab Pending Hepatitis A Ab Total Pending Hep Bs Antigen Pending Hep B Core Total Ab Pending Hep B Core IgM Ab Pending Hepatitis C Comment Pending MRSA (PCR) POSITIVE H 08/10/17 08/10/17 08/10/17 02:30 04:25 04:25 WBC 11.5 H RBC 3.34 L Hgb 10.1 L Hct 30.1 L MCV 90.1 MCH 30.2 MCHC 33.6 RDW 12.6 RDW Differential 40.6 Plt Count 33 L* MPV 11.9 Neut % (Auto) Not Reportable Absolute Neuts (auto) 10.5 H Absolute Lymphs (auto) 0.58 L Total Counted 100 Neutrophils % (Manual) 85 H Band Neutrophils % 6 H Lymphocytes % (Manual) 5 L Monocytes % (Manual) 2 Metamyelocytes % 2 H Diff Path Review May foll Platelet Estimate MKD DEC Plt Morphology Comment LARGE RBC Morphology N CHROM Microcytosis 1+ ESR PT INR APTT Sodium 137 Potassium 3.8 Chloride 108 H Carbon Dioxide 21.0 Anion Gap 8 BUN 15 Creatinine 1.10 H Estim Creat Clear Calc 64.58 Est GFR (MDRD) Af Amer 75 Est GFR (MDRD) Non-Af 62 BUN/Creatinine Ratio 13.6 Glucose 134 H Calcium 6.7 L Phosphorus Magnesium 1.4 L Total Bilirubin 1.70 H AST 32 ALT 18 Alkaline Phosphatase 90 Troponin I < 0.02 C-React Prot Ext Range Total Protein 4.5 L Albumin 1.7 L Globulin 2.8 Albumin/Globulin Ratio 0.6 L Hepatitis A IgM Ab Hepatitis A Ab Total Hep Bs Antigen Hep B Core Total Ab Hep B Core IgM Ab Hepatitis C Comment MRSA (PCR) 08/10/17 04:25 WBC RBC Hgb Hct MCV MCH MCHC RDW RDW Differential Plt Count MPV Neut % (Auto) Absolute Neuts (auto) Absolute Lymphs (auto) Total Counted Neutrophils % (Manual) Band Neutrophils % Lymphocytes % (Manual) Monocytes % (Manual) Metamyelocytes % Diff Path Review Platelet Estimate Plt Morphology Comment RBC Morphology Microcytosis ESR PT INR APTT Sodium Potassium Chloride Carbon Dioxide Anion Gap BUN Creatinine Estim Creat Clear Calc Est GFR (MDRD) Af Amer Est GFR (MDRD) Non-Af BUN/Creatinine Ratio Glucose Calcium Phosphorus 2.2 L Magnesium Total Bilirubin AST ALT Alkaline Phosphatase Troponin I C-React Prot Ext Range Total Protein Albumin Globulin Albumin/Globulin Ratio Hepatitis A IgM Ab Hepatitis A Ab Total Hep Bs Antigen Hep B Core Total Ab Hep B Core IgM Ab Hepatitis C Comment MRSA (PCR) Assessment/Plan Active and Suspected Problems FUO (fever of unknown origin) (Acute) Hypokalemia (Acute) Hypotension (Acute) poor peripheral iv line (Acute) Septic shock (Acute) Impressions 1. FUO - doubt UTI since she is asymptomatic. Suspect recurrent endocarditis. second UA on a cath specimen was never sent but the urine culture was set up, 2. Septic shock with GM + cocci in the aerobic and anaerobic bottles and + SA - requiring Pressors to keep the MAP > 65 3. hx of IV drug abuse 4. hx of bacterial endocarditis - S/P bioprosthetic MV replacement? Pt states TV replacement 5. poor dental hygiene 6. hypokalemia 7. Hyponatremia 8. PM present 9. Acute renal failure 10. Severe thrombocytopenia secondary to septic shock 11. Mild coagulopathy secondary to sepsis 12. Hypomagnesemia 13. Hypophosphatemia MAg and phos replacement ordered Get a UA from the [facility] repeated today For SURYA today ID consult continue the Vanco and the Zosyn Continue pressors and maintain arterial pressure at 65 CXR with patchy infiltrates - pulmonary edema? PNA due to bacteremia? She is maintaining the saturation on RA Hepatitis panel and HIV ordered Monitor creatinine closely-patient hypotensive most of yesterday Recheck BMP, mag and phosphorus at 4 PM today Laxative today
--- NOTE | 2017-08-10 07:57 | PCM.RX.CS ---
Subjective/Objective Date: 08/10/17 Time: 07:58 Antibiotic: Vancomycin Type of Consult: New start Indications for Therapy: MRSA Labs: Sodium 137 mmol/L (136-145) 08/10/17 04:25 Potassium 3.8 mmol/L (3.5-5.1) 08/10/17 04:25 Chloride 108 mmol/L (98-107) H 08/10/17 04:25 Carbon Dioxide 21.0 mmol/L (21.0-32.0) 08/10/17 04:25 Anion Gap 8 (5-15) 08/10/17 04:25 BUN 15 mg/dL (7-18) 08/10/17 04:25 Creatinine 1.10 mg/dL (0.55-1.02) H 08/10/17 04:25 Est GFR (MDRD) Af Amer 75 mL/min (>60) 08/10/17 04:25 Est GFR (MDRD) Non-Af 62 mL/min (>60) 08/10/17 04:25 BUN/Creatinine Ratio 13.6 RATIO (10-20) 08/10/17 04:25 Glucose 134 mg/dL (74-106) H 08/10/17 04:25 Estimated Creatinine Clearance: 80-90 mL/min Pharmacy Plan for Drug Dosing: Goal vancomycin trough 10-15 mcg/mL. Patient initially started on vancomycin 1000mg IV q12h. SCr elevated from baseline at this time but 1000mg IV q12h dosing currently est trough is 14 mcg/mL. Recommend to continue same dose, check trough Mon morn. Pharmacy Service will continue to monitor and adjust dosing as required. Pharmacy to order these labs: Trough - Vancomycin Labs to be done on (date): 08/11/17 Labs to be done (time): 04:00
--- NOTE | 2017-08-10 08:11 | NURSING ---
Dr. Stein and [facility] staff at bedside for SURYA
[2017-08-10 08:46] LABS: Mucous, Urine 0 SEEN /hpf (<or=2+)
[2017-08-10 08:48] LABS: Color, Urine Yellow (Yellow); Glucose, Dipstick Normal (Normal); Ketone-Dipstick 5 mg/dl (Negative); Leukocyte Esterase-Dipstick 500 /ul (Negative); Nitrite-Dipstick Positive (Negative); Occult Blood-Urine 150 /ul (Negative); Protein-Dipstick 100 mg/dl (Negative); Specific Gravity, Urine 1.015 (1.002-1.030); Urine Bilirubin Dipstick 3 mg/dL (Negative); Urine Clarity Sl. Cloudy (Clear); Urine Urobilinogen 12 mg/dl (Normal)
--- NOTE | 2017-08-10 08:51 | NURSING ---
Pt gives verbal permission for Cinthya Hnenessy (mother) to have information. Requests that calls be directed to pt if able so that she (Nelly) can give information as she sees fit.
[2017-08-10 08:58] LABS: Red Blood Cells-Urine 5-10 SEEN /hpf (0-5); Squamous Epithelial Cells - UA 5-10 SEEN /hpf (5-10); White Blood Cells 10-25 SEEN /hpf (0-5)
[2017-08-10 09:04] LABS: Fine Granular Cast- Urine 0-5 SEEN /lpf (0-5); White Cell Cast 0-5 SEEN /lpf (None Seen)
[2017-08-10 09:05] LABS: Bacteria 3+ /hpf (None Seen); Renal Epithelial Cells 10-25 SEEN /hpf (0-5)
--- NOTE | 2017-08-10 09:47 | CON.PCM_ITS ---
Problem List (1) Septic shock Status: Acute Reason for Consult: mrsa bacteremia Consulted by: Dr. Daley History of Present Illness: The patient is a 32 year old F with IVDU, currently using meth, and admission to [facility] over the summer with CoNS in bcx at [facility], and PsA and MSSA in bcx at [facility]. Taken to OR for TVR and pacer placement by Dr. Ansari. Tissue cx (+) for PsA. Discharged on iv zosyn to [facility]. Since then, has continued to use IV drugs, but was in [facility] for 4 months until recently. Injected into RUE several days ago, developed diffuse aches, fever/chills. C/o upper back pain, headache. No drainage or redness at injection site. No bleeding from gums. Came to ED, found to be in septic shock with thrombocytopenia. Bcx now with MRSA. On vanc/zosyn. No problems at pacer site in L lower chest. Does not share needles, does not lick needles, does reuse needles, uses tap water. Full ROS performed and neg except as noted above. [facility] discharge summary 12/2016: 31-year-old female with past medical history of IV heroin abuse. 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 She was treated with antibiotics seen by infectious disease. Seen and cleared by dental. She also was found to have MSSA bacteremia. She had a PICC line placed was continued on IV antibiotics and discharged to [facility] and then to return at some point for surgery. Surgery was performed on 12/20/[address] Ansari, tricuspid valve replacement with a #33 mm tissue prosthesis, and placement of 2 permanent epicardial atrial pacing leads. She tolerated the procedure well and was transferred to the [facility] ICU in stable condition. Wean from the ventilator and extubated her postop evening. Chest tube output was minimal. In the immediate postop period, She did require hiren-Synephrine IV drip for blood pressure support. ID continued to follow her postoperatively for antibiotic therapy. Pain management was consulted for pain control. She was AV paced with temporary wires postoperatively underlying rhythm was ventricular standstill EP was consulted. She was transfused with RBCs . New PICC line was placed 12/23. Tissue culture positive for Pseudomonas treated with IV antibiotics per ID. Permanent pacemaker inserted 12/26/2016. Patient tolerating ambulation in the [place]. Discharged to residential facility 12/28/16 for 4 weeks of IV antibiotic therapy. - Medical History Past Medical History (Chronic Problems): Chronic Problems Hx of mitral valve replacement (Chronic) bioprosthetic valve Hx of bacterial endocarditis (Chronic) IV drug abuse (Chronic) IV methamphetamine currently, heroin in the past Allergies/Adverse Reactions: Allergies No Known Allergies Allergy (Verified 08/09/17 12:06) Home Medications: Ambulatory Orders Medication Instructions Recorded NK [NK] 08/09/17 - Social History Drug Use: heroin - current iv meth use Vital Signs Temp Pulse Resp BP Pulse Ox 99.5 F H 110 H 17 94/58 L 98 08/10/17 09:00 08/10/17 09:00 08/10/17 09:00 08/10/17 09:00 08/10/17 09:00 Oxygen Delivery Method Room Air Weight: 68.7 kg Body Mass Index (BMI) 25.2 Laboratory Tests Past 24 Hrs 08/09/17 08/09/17 08/09/17 18:36 18:36 18:36 WBC RBC Hgb Hct MCV MCH MCHC RDW RDW Differential Plt Count MPV Neut % (Auto) Absolute Neuts (auto) Absolute Lymphs (auto) Total Counted Neutrophils % (Manual) Band Neutrophils % Lymphocytes % (Manual) Monocytes % (Manual) Metamyelocytes % Diff Path Review Platelet Estimate Plt Morphology Comment RBC Morphology Microcytosis ESR 5 PT 17.6 H INR 1.4 APTT 50.8 H Sodium Potassium Chloride Carbon Dioxide Anion Gap BUN Creatinine Estim Creat Clear Calc Est GFR (MDRD) Af Amer Est GFR (MDRD) Non-Af BUN/Creatinine Ratio Glucose Calcium Phosphorus Magnesium 1.7 Total Bilirubin AST ALT Alkaline Phosphatase Troponin I < 0.02 C-React Prot Ext Range 180.00 H B-Natriuretic Peptide Total Protein Albumin Globulin Albumin/Globulin Ratio Urine Color Urine Clarity Urine pH Ur Specific [place] Urine Protein Urine Glucose (UA) Urine Ketones Urine Occult Blood Urine Nitrite Urine Bilirubin Urine Urobilinogen Ur Leukocyte Esterase Urine RBC Urine WBC Ur Squamous Epith Cells Ur Renal Epithelial Cell Urine Bacteria Fine Granular Casts WBC Casts Urine Mucus Hepatitis A IgM Ab Hepatitis A Ab Total Hep Bs Antigen Hep B Core Total Ab Hep B Core IgM Ab Hepatitis C Comment HIV 1&2 Antibody MRSA (PCR) 08/09/17 08/09/17 08/09/17 18:36 19:00 22:41 WBC RBC Hgb Hct MCV MCH MCHC RDW RDW Differential Plt Count MPV Neut % (Auto) Absolute Neuts (auto) Absolute Lymphs (auto) Total Counted Neutrophils % (Manual) Band Neutrophils % Lymphocytes % (Manual) Monocytes % (Manual) Metamyelocytes % Diff Path Review Platelet Estimate Plt Morphology Comment RBC Morphology Microcytosis ESR PT INR APTT Sodium Potassium Chloride Carbon Dioxide Anion Gap BUN Creatinine Estim Creat Clear Calc Est GFR (MDRD) Af Amer Est GFR (MDRD) Non-Af BUN/Creatinine Ratio Glucose Calcium Phosphorus Magnesium Total Bilirubin AST ALT Alkaline Phosphatase Troponin I < 0.02 C-React Prot Ext Range B-Natriuretic Peptide Total Protein Albumin Globulin Albumin/Globulin Ratio Urine Color Urine Clarity Urine pH Ur Specific [place] Urine Protein Urine Glucose (UA) Urine Ketones Urine Occult Blood Urine Nitrite Urine Bilirubin Urine Urobilinogen Ur Leukocyte Esterase Urine RBC Urine WBC Ur Squamous Epith Cells Ur Renal Epithelial Cell Urine Bacteria Fine Granular Casts WBC Casts Urine Mucus Hepatitis A IgM Ab Pending Hepatitis A Ab Total Pending Hep Bs Antigen Pending Hep B Core Total Ab Pending Hep B Core IgM Ab Pending Hepatitis C Comment Pending HIV 1&2 Antibody MRSA (PCR) POSITIVE H 08/10/17 08/10/17 08/10/17 02:30 04:25 04:25 WBC 11.5 H RBC 3.34 L Hgb 10.1 L Hct 30.1 L MCV 90.1 MCH 30.2 MCHC 33.6 RDW 12.6 RDW Differential 40.6 Plt Count 33 L* MPV 11.9 Neut % (Auto) Not Reportable Absolute Neuts (auto) 10.5 H Absolute Lymphs (auto) 0.58 L Total Counted 100 Neutrophils % (Manual) 85 H Band Neutrophils % 6 H Lymphocytes % (Manual) 5 L Monocytes % (Manual) 2 Metamyelocytes % 2 H Diff Path Review May foll Platelet Estimate MKD DEC Plt Morphology Comment LARGE RBC Morphology N CHROM Microcytosis 1+ ESR PT INR APTT Sodium 137 Potassium 3.8 Chloride 108 H Carbon Dioxide 21.0 Anion Gap 8 BUN 15 Creatinine 1.10 H Estim Creat Clear Calc 64.58 Est GFR (MDRD) Af Amer 75 Est GFR (MDRD) Non-Af 62 BUN/Creatinine Ratio 13.6 Glucose 134 H Calcium 6.7 L Phosphorus Magnesium 1.4 L Total Bilirubin 1.70 H AST 32 ALT 18 Alkaline Phosphatase 90 Troponin I < 0.02 C-React Prot Ext Range B-Natriuretic Peptide Total Protein 4.5 L Albumin 1.7 L Globulin 2.8 Albumin/Globulin Ratio 0.6 L Urine Color Urine Clarity Urine pH Ur Specific [place] Urine Protein Urine Glucose (UA) Urine Ketones Urine Occult Blood Urine Nitrite Urine Bilirubin Urine Urobilinogen Ur Leukocyte Esterase Urine RBC Urine WBC Ur Squamous Epith Cells Ur Renal Epithelial Cell Urine Bacteria Fine Granular Casts WBC Casts Urine Mucus Hepatitis A IgM Ab Hepatitis A Ab Total Hep Bs Antigen Hep B Core Total Ab Hep B Core IgM Ab Hepatitis C Comment HIV 1&2 Antibody MRSA (PCR) 08/10/17 08/10/17 08/10/17 04:25 04:25 08:35 WBC RBC Hgb Hct MCV MCH MCHC RDW RDW Differential Plt Count MPV Neut % (Auto) Absolute Neuts (auto) Absolute Lymphs (auto) Total Counted Neutrophils % (Manual) Band Neutrophils % Lymphocytes % (Manual) Monocytes % (Manual) Metamyelocytes % Diff Path Review Platelet Estimate Plt Morphology Comment RBC Morphology Microcytosis ESR PT INR APTT Sodium Potassium Chloride Carbon Dioxide Anion Gap BUN Creatinine Estim Creat Clear Calc Est GFR (MDRD) Af Amer Est GFR (MDRD) Non-Af BUN/Creatinine Ratio Glucose Calcium Phosphorus 2.2 L Magnesium Total Bilirubin AST ALT Alkaline Phosphatase Troponin I < 0.02 C-React Prot Ext Range B-Natriuretic Peptide Pending Total Protein Albumin Globulin Albumin/Globulin Ratio Urine Color Urine Clarity Urine pH Ur Specific [place] Urine Protein Urine Glucose (UA) Urine Ketones Urine Occult Blood Urine Nitrite Urine Bilirubin Urine Urobilinogen Ur Leukocyte Esterase Urine RBC Urine WBC Ur Squamous Epith Cells Ur Renal Epithelial Cell Urine Bacteria Fine Granular Casts WBC Casts Urine Mucus Hepatitis A IgM Ab Hepatitis A Ab Total Hep Bs Antigen Hep B Core Total Ab Hep B Core IgM Ab Hepatitis C Comment HIV 1&2 Antibody MRSA (PCR) 08/10/17 08/10/17 08:35 08:40 WBC RBC Hgb Hct MCV MCH MCHC RDW RDW Differential Plt Count MPV Neut % (Auto) Absolute Neuts (auto) Absolute Lymphs (auto) Total Counted Neutrophils % (Manual) Band Neutrophils % Lymphocytes % (Manual) Monocytes % (Manual) Metamyelocytes % Diff Path Review Platelet Estimate Plt Morphology Comment RBC Morphology Microcytosis ESR PT INR APTT Sodium Potassium Chloride Carbon Dioxide Anion Gap BUN Creatinine Estim Creat Clear Calc Est GFR (MDRD) Af Amer Est GFR (MDRD) Non-Af BUN/Creatinine Ratio Glucose Calcium Phosphorus Magnesium Total Bilirubin AST ALT Alkaline Phosphatase Troponin I C-React Prot Ext Range B-Natriuretic Peptide Total Protein Albumin Globulin Albumin/Globulin Ratio Urine Color Yellow Urine Clarity Sl. Cloudy Urine pH 6.0 Ur Specific [place] 1.015 Urine Protein 100 H Urine Glucose (UA) Normal Urine Ketones 5 H Urine Occult Blood 150 H Urine Nitrite Positive H Urine Bilirubin 3 H Urine Urobilinogen 12 H Ur Leukocyte Esterase 500 H Urine RBC 5-10 SEEN Urine WBC 10-25 SEEN Ur Squamous Epith Cells 5-10 SEEN Ur Renal Epithelial Cell 10-25 SEEN Urine Bacteria 3+ Fine Granular Casts 0-5 SEEN WBC Casts 0-5 SEEN Urine Mucus 0 SEEN Hepatitis A IgM Ab Hepatitis A Ab Total Hep Bs Antigen Hep B Core Total Ab Hep B Core IgM Ab Hepatitis C Comment HIV 1&2 Antibody Pending MRSA (PCR) - Other Studies Radiology: [] reviewed Other Studies: [] Route of nutrition/ use of supplements: [] Nutritional Intake: [] IV Site: [] Clark Catheter: [] - Physical Exam General: Alert, Oriented x3, Cooperative, No apparent distress HEENT: Atraumatic, PERRLA, EOMI Neck: Supple - some pain with ROM, No Nodes Lungs: Clear to auscultation, Normal air movement Cardiovascular: Murmur, Tachycardic, - - no pain or inflammation over pacer site Abdomen: Bowel Sounds Present, Soft, Non Tender, Non-Distended Extremities: No edema Skin: No rashes, - - no janeway/osler/splinter hemorrhage IV Site: Central Line, without redness Musculoskeletal: No Tenderness to Palpation of Joints or Extremities, - - Tender to palpation around T1 Neurological: Cranial nerves II-XII grossly intact - Assessment/Plan Antibiotics: [] Assessment/Plan: [] Active and Suspected Problems FUO (fever of unknown origin) (Acute) Hypokalemia (Acute) Hypotension (Acute) poor peripheral iv line (Acute) Septic shock (Acute) Septic shock due to MRSA bacteremia due to IVDU, 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 SURYA pending. Would recommend MRI of C and T-spine due to possible discitis/ epidural abscess. Will need cardiac surgical eval, transfer planned. Cont vanc /zosyn. Repeat bcx now. h/o TVR and pacer due to MSSA and PsA endocarditis IVDU - hep panel and HIV pending Thank you, will follow, d/w primary team.
[2017-08-10 10:21] LABS: BNP,B-Type NATRIURETIC PEPTIDE 720.9 pg/mL (0-100)
--- NOTE | 2017-08-10 11:04 | CASEMGMT ---
Pt is getting transferred from here to [facility]. SW did go in to see pt as she is self pay. Pt states she has [employer]. SW spoke w/our financial dept, she is coming up as not active. [employer] called JFS in [facility], pt has not had Medicaid since January of 2017. SW spoke w/pt again, she is agreeable to complete a new application, though states does not understand how this can be, as she went to the doctor for a pacemaker check in June and used her Medicaid card. Pt now lives in [facility]. SW assisted pt in completing the Medicaid application. [employer] called the [facility] JFS to make sure pt is not active there, she is not. [employer] faxed application to S in [facility]. Our financial dept is also going to mail pt some information for assist. EUSEBIA Bro, [employer]
[2017-08-10] MEDS: Acetaminophen 325 MG Tablet 650 MG PO (12:39)
[2017-08-10] MEDS: oxyCODONE 5 MG Tablet 10 MG PO ×2 (12:40→20:14)
[2017-08-10 13:49] LABS: Pathologist Review Reviewed
--- NOTE | 2017-08-10 14:37 | NURSING ---
Ice packs applied to groin/forehead for persistent fever.
--- NOTE | 2017-08-10 15:44 | NURSING ---
Lab phoned to attempt peripheral blood cx.
[2017-08-10] MEDS: fentaNYL 100 MCG/2 ML Ampul 25 MCG IV ×2 (16:11→21:15)
--- NOTE | 2017-08-10 16:35 | NURSING ---
Phlebot at bedside attempting 2nd set peripheral blood cx
--- NOTE | 2017-08-10 16:42 | PCM.DC.SUM ---
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 Hypokalemia (Acute) Acute oliguric renal failure Hypophosphatemia Hypomagnesemia DIC - Secondary Discharge Diagnosis Chronic Problems Hx of bioprosthetic tricuspid valve replacement (Chronic) at [facility] in December 2016 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 No acute abnormality is seen. Electronically Signed: Carlos Resendez MD at 12:59 EST Tel [phone], Service support , Chest X-Ray 08/10/17 01:25 IMPRESSION: There is a RIGHT-sided central venous catheter. The tip is in the superior vena cava. There are bibasilar infiltrates greater on the RIGHT. There is NO pleural effusion. There is NO pneumothorax. Normal size heart. There has been open heart surgery. Electronically Signed: Will Green MD at 3:30 EST , Service support , Laboratory Tests 08/09/17 08/09/17 08/09/17 13:00 13:00 13:00 WBC 7.7 RBC 3.33 L Hgb 10.1 L Hct 29.9 L MCV 89.8 MCH 30.3 MCHC 33.8 RDW 12.2 RDW Differential 38.7 Plt Count 51 L MPV 12.5 H Immature Gran % (Auto) 0.800 Neut % (Auto) 76.8 H Lymph % (Auto) 10.4 L [place] % (Auto) 11.8 H Eos % (Auto) 0.1 Baso % (Auto) 0.1 Absolute Neuts (auto) 5.9 Absolute Lymphs (auto) 0.80 L Total Counted Not Reportable Neutrophils % (Manual) Band Neutrophils % Lymphocytes % (Manual) Monocytes % (Manual) Metamyelocytes % Diff Path Review Platelet Estimate Plt Morphology Comment RBC Morphology Microcytosis ESR PT INR APTT Sodium 134 L Potassium 3.0 L Chloride 97 L Carbon Dioxide 28.0 Anion Gap 9 BUN 11 Creatinine 0.71 Estim Creat Clear Calc 100.05 Est GFR (MDRD) Af Amer 124 Est GFR (MDRD) Non-Af 102 BUN/Creatinine Ratio 15.4 Glucose 112 H Lactic Acid 2.0 Calcium 7.5 L Phosphorus Magnesium Total Bilirubin 1.00 AST 17 ALT 18 Alkaline Phosphatase 81 Troponin I C-React Prot Ext Range B-Natriuretic Peptide Total Protein 5.7 L Albumin 2.3 L Globulin 3.4 Albumin/Globulin Ratio 0.7 L Urine Color Urine Clarity Urine pH Ur Specific [place] Urine Protein Urine Glucose (UA) Urine Ketones Urine Occult Blood Urine Nitrite Urine Bilirubin Urine Urobilinogen Ur Leukocyte Esterase Urine RBC Urine WBC Ur Squamous Epith Cells Ur Renal Epithelial Cell Urine Bacteria Fine Granular Casts WBC Casts Urine Mucus Urine Test Urine Opiates Screen Urine Methadone Screen Ur Barbiturates Screen Ur Phencyclidine Scrn Ur Amphetamines Screen U Methamphetamin-MDMA U Benzodiazepines Scrn Urine Cocaine Screen U Cannabinoids Screen Ur Drug Screen Comment MRSA (PCR) 08/09/17 08/09/17 08/09/17 14:30 14:30 16:00 WBC RBC Hgb Hct MCV MCH MCHC RDW RDW Differential Plt Count MPV Immature Gran % (Auto) Neut % (Auto) Lymph % (Auto) [place] % (Auto) Eos % (Auto) Baso % (Auto) Absolute Neuts (auto) Absolute Lymphs (auto) Total Counted Neutrophils % (Manual) Band Neutrophils % Lymphocytes % (Manual) Monocytes % (Manual) Metamyelocytes % Diff Path Review Platelet Estimate Plt Morphology Comment RBC Morphology Microcytosis ESR PT INR APTT Sodium Potassium Chloride Carbon Dioxide Anion Gap BUN Creatinine Estim Creat Clear Calc Est GFR (MDRD) Af Amer Est GFR (MDRD) Non-Af BUN/Creatinine Ratio Glucose Lactic Acid Calcium Phosphorus Magnesium Total Bilirubin AST ALT Alkaline Phosphatase Troponin I C-React Prot Ext Range B-Natriuretic Peptide Total Protein Albumin Globulin Albumin/Globulin Ratio Urine Color Yellow Urine Clarity Sl. Cloudy Urine pH 6.0 Ur Specific [place] 1.010 Urine Protein 30 H Urine Glucose (UA) Normal Urine Ketones 5 H Urine Occult Blood 25 H Urine Nitrite Negative Urine Bilirubin 1 H Urine Urobilinogen 8 H Ur Leukocyte Esterase 100 H Urine RBC 0 SEEN Urine WBC 25-50 SEEN Ur Squamous Epith Cells 25-50 SEEN Ur Renal Epithelial Cell Urine Bacteria 3+ Fine Granular Casts WBC Casts Urine Mucus RARE Urine Test Negative Urine Opiates Screen NEGATIVE Urine Methadone Screen NEGATIVE Ur Barbiturates Screen NEGATIVE Ur Phencyclidine Scrn NEGATIVE Ur Amphetamines Screen POSITIVE H U Methamphetamin-MDMA NEGATIVE U Benzodiazepines Scrn NEGATIVE Urine Cocaine Screen NEGATIVE U Cannabinoids Screen NEGATIVE Ur Drug Screen Comment MRSA (PCR) 08/09/17 08/09/17 08/09/17 18:36 18:36 18:36 WBC RBC Hgb Hct MCV MCH MCHC RDW RDW Differential Plt Count MPV Immature Gran % (Auto) Neut % (Auto) Lymph % (Auto) [place] % (Auto) Eos % (Auto) Baso % (Auto) Absolute Neuts (auto) Absolute Lymphs (auto) Total Counted Neutrophils % (Manual) Band Neutrophils % Lymphocytes % (Manual) Monocytes % (Manual) Metamyelocytes % Diff Path Review Platelet Estimate Plt Morphology Comment RBC Morphology Microcytosis ESR 5 PT 17.6 H INR 1.4 APTT 50.8 H Sodium Potassium Chloride Carbon Dioxide Anion Gap BUN Creatinine Estim Creat Clear Calc Est GFR (MDRD) Af Amer Est GFR (MDRD) Non-Af BUN/Creatinine Ratio Glucose Lactic Acid Calcium Phosphorus Magnesium 1.7 Total Bilirubin AST ALT Alkaline Phosphatase Troponin I < 0.02 C-React Prot Ext Range 180.00 H B-Natriuretic Peptide Total Protein Albumin Globulin Albumin/Globulin Ratio Urine Color Urine Clarity Urine pH Ur Specific [place] Urine Protein Urine Glucose (UA) Urine Ketones Urine Occult Blood Urine Nitrite Urine Bilirubin Urine Urobilinogen Ur Leukocyte Esterase Urine RBC Urine WBC Ur Squamous Epith Cells Ur Renal Epithelial Cell Urine Bacteria Fine Granular Casts WBC Casts Urine Mucus Urine Test Urine Opiates Screen Urine Methadone Screen Ur Barbiturates Screen Ur Phencyclidine Scrn Ur Amphetamines Screen U Methamphetamin-MDMA U Benzodiazepines Scrn Urine Cocaine Screen U Cannabinoids Screen Ur Drug Screen Comment MRSA (PCR) 08/09/17 08/09/17 08/10/17 19:00 22:41 02:30 WBC RBC Hgb Hct MCV MCH MCHC RDW RDW Differential Plt Count MPV Immature Gran % (Auto) Neut % (Auto) Lymph % (Auto) [place] % (Auto) Eos % (Auto) Baso % (Auto) Absolute Neuts (auto) Absolute Lymphs (auto) Total Counted Neutrophils % (Manual) Band Neutrophils % Lymphocytes % (Manual) Monocytes % (Manual) Metamyelocytes % Diff Path Review Platelet Estimate Plt Morphology Comment RBC Morphology Microcytosis ESR PT INR APTT Sodium Potassium Chloride Carbon Dioxide Anion Gap BUN Creatinine Estim Creat Clear Calc Est GFR (MDRD) Af Amer Est GFR (MDRD) Non-Af BUN/Creatinine Ratio Glucose Lactic Acid Calcium Phosphorus Magnesium Total Bilirubin AST ALT Alkaline Phosphatase Troponin I < 0.02 < 0.02 C-React Prot Ext Range B-Natriuretic Peptide Total Protein Albumin Globulin Albumin/Globulin Ratio Urine Color Urine Clarity Urine pH Ur Specific [place] Urine Protein Urine Glucose (UA) Urine Ketones Urine Occult Blood Urine Nitrite Urine Bilirubin Urine Urobilinogen Ur Leukocyte Esterase Urine RBC Urine WBC Ur Squamous Epith Cells Ur Renal Epithelial Cell Urine Bacteria Fine Granular Casts WBC Casts Urine Mucus Urine Test Urine Opiates Screen Urine Methadone Screen Ur Barbiturates Screen Ur Phencyclidine Scrn Ur Amphetamines Screen U Methamphetamin-MDMA U Benzodiazepines Scrn Urine Cocaine Screen U Cannabinoids Screen Ur Drug Screen Comment MRSA (PCR) POSITIVE H 08/10/17 08/10/17 08/10/17 04:25 04:25 04:25 WBC 11.5 H RBC 3.34 L Hgb 10.1 L Hct 30.1 L MCV 90.1 MCH 30.2 MCHC 33.6 RDW 12.6 RDW Differential 40.6 Plt Count 33 L* MPV 11.9 Immature Gran % (Auto) Neut % (Auto) Not Reportable Lymph % (Auto) [place] % (Auto) Eos % (Auto) Baso % (Auto) Absolute Neuts (auto) 10.5 H Absolute Lymphs (auto) 0.58 L Total Counted 100 Neutrophils % (Manual) 85 H Band Neutrophils % 6 H Lymphocytes % (Manual) 5 L Monocytes % (Manual) 2 Metamyelocytes % 2 H Diff Path Review Reviewed Platelet Estimate MKD DEC Plt Morphology Comment LARGE RBC Morphology N CHROM Microcytosis 1+ ESR PT INR APTT Sodium 137 Potassium 3.8 Chloride 108 H Carbon Dioxide 21.0 Anion Gap 8 BUN 15 Creatinine 1.10 H Estim Creat Clear Calc 64.58 Est GFR (MDRD) Af Amer 75 Est GFR (MDRD) Non-Af 62 BUN/Creatinine Ratio 13.6 Glucose 134 H Lactic Acid Calcium 6.7 L Phosphorus 2.2 L Magnesium 1.4 L Total Bilirubin 1.70 H AST 32 ALT 18 Alkaline Phosphatase 90 Troponin I C-React Prot Ext Range B-Natriuretic Peptide Total Protein 4.5 L Albumin 1.7 L Globulin 2.8 Albumin/Globulin Ratio 0.6 L Urine Color Urine Clarity Urine pH Ur Specific [place] Urine Protein Urine Glucose (UA) Urine Ketones Urine Occult Blood Urine Nitrite Urine Bilirubin Urine Urobilinogen Ur Leukocyte Esterase Urine RBC Urine WBC Ur Squamous Epith Cells Ur Renal Epithelial Cell Urine Bacteria Fine Granular Casts WBC Casts Urine Mucus Urine Test Urine Opiates Screen Urine Methadone Screen Ur Barbiturates Screen Ur Phencyclidine Scrn Ur Amphetamines Screen U Methamphetamin-MDMA U Benzodiazepines Scrn Urine Cocaine Screen U Cannabinoids Screen Ur Drug Screen Comment MRSA (PCR) 08/10/17 08/10/17 08/10/17 04:25 08:35 08:40 WBC RBC Hgb Hct MCV MCH MCHC RDW RDW Differential Plt Count MPV Immature Gran % (Auto) Neut % (Auto) Lymph % (Auto) [place] % (Auto) Eos % (Auto) Baso % (Auto) Absolute Neuts (auto) Absolute Lymphs (auto) Total Counted Neutrophils % (Manual) Band Neutrophils % Lymphocytes % (Manual) Monocytes % (Manual) Metamyelocytes % Diff Path Review Platelet Estimate Plt Morphology Comment RBC Morphology Microcytosis ESR PT INR APTT Sodium Potassium Chloride Carbon Dioxide Anion Gap BUN Creatinine Estim Creat Clear Calc Est GFR (MDRD) Af Amer Est GFR (MDRD) Non-Af BUN/Creatinine Ratio Glucose Lactic Acid Calcium Phosphorus Magnesium Total Bilirubin AST ALT Alkaline Phosphatase Troponin I < 0.02 C-React Prot Ext Range B-Natriuretic Peptide 720.9 H Total Protein Albumin Globulin Albumin/Globulin Ratio Urine Color Yellow Urine Clarity Sl. Cloudy Urine pH 6.0 Ur Specific [place] 1.015 Urine Protein 100 H Urine Glucose (UA) Normal Urine Ketones 5 H Urine Occult Blood 150 H Urine Nitrite Positive H Urine Bilirubin 3 H Urine Urobilinogen 12 H Ur Leukocyte Esterase 500 H Urine RBC 5-10 SEEN Urine WBC 10-25 SEEN Ur Squamous Epith Cells 5-10 SEEN Ur Renal Epithelial Cell 10-25 SEEN Urine Bacteria 3+ Fine Granular Casts 0-5 SEEN WBC Casts 0-5 SEEN Urine Mucus 0 SEEN Urine Test Urine Opiates Screen Urine Methadone Screen Ur Barbiturates Screen Ur Phencyclidine Scrn Ur Amphetamines Screen U Methamphetamin-MDMA U Benzodiazepines Scrn Urine Cocaine Screen U Cannabinoids Screen Ur Drug Screen Comment MRSA (PCR) 08/10/17 16:15 WBC RBC Hgb Hct MCV MCH MCHC RDW RDW Differential Plt Count MPV Immature Gran % (Auto) Neut % (Auto) Lymph % (Auto) [place] % (Auto) Eos % (Auto) Baso % (Auto) Absolute Neuts (auto) Absolute Lymphs (auto) Total Counted Neutrophils % (Manual) Band Neutrophils % Lymphocytes % (Manual) Monocytes % (Manual) Metamyelocytes % Diff Path Review Platelet Estimate Plt Morphology Comment RBC Morphology Microcytosis ESR PT INR APTT Sodium 135 L Potassium 4.4 Chloride 107 Carbon Dioxide 20.0 L Anion Gap 8 BUN 17 Creatinine 1.36 H Estim Creat Clear Calc 52.23 Est GFR (MDRD) Af Amer 59 L Est GFR (MDRD) Non-Af 49 L BUN/Creatinine Ratio 12.5 Glucose 203 H Lactic Acid Calcium 7.2 L Phosphorus 3.1 Magnesium 2.1 Total Bilirubin AST ALT Alkaline Phosphatase Troponin I C-React Prot Ext Range B-Natriuretic Peptide Total Protein Albumin Globulin Albumin/Globulin Ratio Urine Color Urine Clarity Urine pH Ur Specific [place] Urine Protein Urine Glucose (UA) Urine Ketones Urine Occult Blood Urine Nitrite Urine Bilirubin Urine Urobilinogen Ur Leukocyte Esterase Urine RBC Urine WBC Ur Squamous Epith Cells Ur Renal Epithelial Cell Urine Bacteria Fine Granular Casts WBC Casts Urine Mucus Urine Test Urine Opiates Screen Urine Methadone Screen Ur Barbiturates Screen Ur Phencyclidine Scrn Ur Amphetamines Screen U Methamphetamin-MDMA U Benzodiazepines Scrn Urine Cocaine Screen U Cannabinoids Screen Ur Drug Screen Comment MRSA (PCR) Microbiology 08/09/17 13:00 Blood Culture (Wb) - Venous Bacteria Detection (PCR) - Final Staphylococcus aureus 08/09/17 13:00 Blood Culture (Wb) - Venous Blood Culture - Preliminary Meth. resistant Staph. aureus 08/09/17 13:15 Blood Culture (Wb) - Venous Blood Culture - Preliminary 08/09/17 12:30 Mucosa - Nasopharyngeal Influenza Types A,B Direct FA (ELADIA) - Final Dr. Wilfred Thakur-medical clinic manager Dr. Abhijit Tobias-infectious disease Operations: None Procedures: Central line placement - R subclavian on 08/09 for IV access Summary of Care Provided: The patient is a 32 year old F with a PMH of TV bacterial endocarditis in December of 2016 (due to MRSA and Pseudomonas), bioprosthetic mitral valve replacement with PM insertion at [facility] in December 2016 and intravenous drug abuse who presented to the emergency department at [facility] on 08/09/2017 complaining of diffuse myalgias and arthralgias, fever and ARGUETA. She was recently in [facility] for parole violation (drug screen was +) and got out on 07/25. Since getting out she has started to use IV meth again. She told me her last use was 6 days prior to presenting to the ED but, the urine tox screen was + for amphetamines. She denied cough, dysuria, vaginal DC, CP, SOB, Sore throat, N/V/Abd pain. She denied any hx of hepatitis or HIV. She is sexually active but denied vaginal DC. Urine test was negative. She had not seen a transplant worker or the cardiothoracic surgeon since the surgery. She has several missing teeth and caries present. She denied pain in the jaw. Vital signs at presentation to the emergency room were temperature 100.6, pulse rate 126, blood pressure 99/56, respiratory rate 18-22 and she was 98-100% saturated on room air. Blood pressure standing was 79/49. White blood cell count was 7.7 with 77% neutrophils. Hemoglobin was 10.1 with a normal MCV and normal RDW. Platelets were low at 51,000. Sodium was low at 134 and the potassium was 3.0. BUN was 11 with a creatinine of 0.71. Lactic acid was 2.0. Corrected serum calcium was within normal limits. LFTs were unremarkable. A clean catch urine was obtained and had 25-50 WBCs and 25-50 squamous epithelial cells. A catheterized specimen was sent on 08/10/2017 and showed 5-10 RBCs, 10-25 WBCs, 10-25 urine renal epithelial cells, 3+ bacteria 0-5 WBC casts. Urine drug screen was positive for amphetamines. Chest X-ray showed no infiltrates, pleural effusions or pulmonary vascular congestion. PM was apparent on the CXR. She was admitted to a monitored bed on the Progressive Cardiac Care Unit for FUO with suspected recurrent Endocarditis. She was started on Vancomycin and Rocephin and was later transitioned to Vancomycin and Zosyn. She decompensated after admission and was transferred to the ICU for hypotension and a R subclavian central line was inserted for venous access. She was started on Levophed to maintain a MAP of 65. 2 of 2 blood cultures turned positive for MRSA in less than 24 hours after admission. SURYA was done in the AM on 08/10 in the ICU and showed an ejection fraction of 50-55% with mild global hypokinesis of the left ventricle. Bubble contrast study was negative for right to left interatrial shunt. There was moderate mitral valve insufficiency and a bioprosthetic tricuspid valve with 1+ TR. There was a large, dense, mobile fibrinous vegetation seen on the right atrial surface of the bioprosthetic tricuspid valve. There was no evidence of perivalvular abscess. The transplant worker performing the procedure recommended transfer to a tertiary care center for valve surgery. She was seen by Dr. Tobias from [place] and he agreed with Zosyn and Vancomycin and recommended an MRI of the cervical and thoracic spine due to neck pain to rule out possible discitis/epidural abscess. He felt she needed evaluated by a cardiothoracic surgeon and recommended transfer. Blood work obtained on 08/10 at 1600 showed an increased creatinine at 1.36. She is oliguric and has had only 165cc urine OP since midnight. PT is now up to 21.6 and the platelets in the a.m. on 08/10/2017 were 33,000. Fibrinogen and CBC are currently pending. Serial troponins were negative. Chest x-ray on 08/10/2017 showed increased pulmonary vascular congestion and a BNP was 721. A third blood culture has been obtained and the results are pending. [facility] refused transfer because she is still using drugs. [facility] also refused because the drug screen was + for amphetamines at admission. I was in contact with [facility] and they have graciously agreed to accept her in transfer but, they do not currently have an ICU bed available. She will be transferred when a bed becomes available. She is currently on Levophed at 25mcg and Vasopressin and vital signs are temperature 99.8, heart rate 98, blood pressure 97/55, respiratory rate 19 and she is 96% saturated on a 2 L nasal cannula. I approached her about calling her family but, she refused and told me she did not want them here. I will broach the subject again with her because I think she will need support. Addendum: 08/11/17 T-max overnight 101.2, current temp 99.7, blood pressure is 94/68 on vasopressin and 30 mics of Levophed, respiratory rate is 22 and she is 94% saturated on 3 L nasal cannula. Urine output 08/10/2017 was 490 cc and overnight she has had 250 cc. weight has increased from 146 lbs. 13 oz. at admission to 167 pounds and 2 ounces today. She was transfused 2 5 packs of PLT's last night for PLT count of 21,000 and today the PLT count is 29,000. Hemoglobin is stable at 10.3 and white blood cell count today is 19.7 with 81% neutrophils. Immature granulocytes are 3.9%. Retinae is 1.32 today, up from 1.193 118. Serum bicarb is 18 today. Albumin is 1.6. HIV and hepatitis panel are still pending. Blood culture drawn yesterday is + for GM + cocci. CXR shows new R pleural effusion and increased pulmonary vascular congestion along with atelectasis vs bibasilar infiltrates. Occasional cough alert and oriented X3, sitting up in a chair Lungs - no wheezes and no rales Heart regular with + gallop, no MM appreciated Telemetry completely paced Abdomen - soft, mildly distended, BS present but diminished + edema extremities feet and hands are cool to the touch and dusky, no splinter hemorrhages Has petechiae and has been scratching more agitated today Transfer scheduled for 8:15 AM to [facility] HIV and hepatitis panel are pending This note was generated with Lenda dictation software. It may contain incorrect words, spelling, and punctuation that were not noted in checking the note before signing. Home Medications: Medications to take at Discharge NK [NK] 08/09/17 Primary Care Physician: Care Physician,No Primary [Primary Care Provider] - Disposition: [facility] Minutes spent on discharge:: 45 Patient Condition:: Critical Meaningful Use Info Meaningful Use Diagnoses (Choose all that apply): None applicable
[2017-08-10 16:47] LABS: Anion Gap 8 (5-15); BUN 17 mg/dL (7-18); BUN/Creat Ratio 12.5 RATIO (10-20); Calcium,Total 7.2 mg/dL (8.5-10.1); Chloride 107 mmol/L (98-107); Creatinine, Serum 1.36 mg/dL (0.55-1.02); EST Glomerular Filtration Rate 49 mL/min (>60); Est Glom Filt Rate - Afr Amer 59 mL/min (>60); Estimated Creatinine Clearance 52.23 ml/min; Glucose 203 mg/dL (74-106); Magnesium 2.1 mg/dL (1.6-2.6); Phosphorus 3.1 mg/dL (2.5-4.9); Potassium 4.4 mmol/L (3.5-5.1); Sodium Level 135 mmol/L (136-145)
[2017-08-10 16:50] LABS: International Normalized Ratio 1.9; Prothrombin Time (Protime)PT. 21.6 SECONDS (11.7-14.9)
--- NOTE | 2017-08-10 16:52 | DS.PCM_ITS ---
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 Hypokalemia (Acute) Acute oliguric renal failure Hypophosphatemia Hypomagnesemia DIC - Secondary Discharge Diagnosis Chronic Problems Hx of bioprosthetic tricuspid valve replacement (Chronic) at [facility] in December 2016 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 No acute abnormality is seen. Electronically Signed: Carlos Resendez MD at 12:59 EST Tel [phone], Service support , Chest X-Ray 08/10/17 01:25 IMPRESSION: There is a RIGHT-sided central venous catheter. The tip is in the superior vena cava. There are bibasilar infiltrates greater on the RIGHT. There is NO pleural effusion. There is NO pneumothorax. Normal size heart. There has been open heart surgery. Electronically Signed: Will Green MD at 3:30 EST , Service support , Laboratory Tests 08/09/17 08/09/17 08/09/17 13:00 13:00 13:00 WBC 7.7 RBC 3.33 L Hgb 10.1 L Hct 29.9 L MCV 89.8 MCH 30.3 MCHC 33.8 RDW 12.2 RDW Differential 38.7 Plt Count 51 L MPV 12.5 H Immature Gran % (Auto) 0.800 Neut % (Auto) 76.8 H Lymph % (Auto) 10.4 L Spalding % (Auto) 11.8 H Eos % (Auto) 0.1 Baso % (Auto) 0.1 Absolute Neuts (auto) 5.9 Absolute Lymphs (auto) 0.80 L Total Counted Not Reportable Neutrophils % (Manual) Band Neutrophils % Lymphocytes % (Manual) Monocytes % (Manual) Metamyelocytes % Diff Path Review Platelet Estimate Plt Morphology Comment RBC Morphology Microcytosis ESR PT INR APTT Sodium 134 L Potassium 3.0 L Chloride 97 L Carbon Dioxide 28.0 Anion Gap 9 BUN 11 Creatinine 0.71 Estim Creat Clear Calc 100.05 Est GFR (MDRD) Af Amer 124 Est GFR (MDRD) Non-Af 102 BUN/Creatinine Ratio 15.4 Glucose 112 H Lactic Acid 2.0 Calcium 7.5 L Phosphorus Magnesium Total Bilirubin 1.00 AST 17 ALT 18 Alkaline Phosphatase 81 Troponin I C-React Prot Ext Range B-Natriuretic Peptide Total Protein 5.7 L Albumin 2.3 L Globulin 3.4 Albumin/Globulin Ratio 0.7 L Urine Color Urine Clarity Urine pH Ur Specific Irwin Urine Protein Urine Glucose (UA) Urine Ketones Urine Occult Blood Urine Nitrite Urine Bilirubin Urine Urobilinogen Ur Leukocyte Esterase Urine RBC Urine WBC Ur Squamous Epith Cells Ur Renal Epithelial Cell Urine Bacteria Fine Granular Casts WBC Casts Urine Mucus Urine Test Urine Opiates Screen Urine Methadone Screen Ur Barbiturates Screen Ur Phencyclidine Scrn Ur Amphetamines Screen U Methamphetamin-MDMA U Benzodiazepines Scrn Urine Cocaine Screen U Cannabinoids Screen Ur Drug Screen Comment MRSA (PCR) 08/09/17 08/09/17 08/09/17 14:30 14:30 16:00 WBC RBC Hgb Hct MCV MCH MCHC RDW RDW Differential Plt Count MPV Immature Gran % (Auto) Neut % (Auto) Lymph % (Auto) Spalding % (Auto) Eos % (Auto) Baso % (Auto) Absolute Neuts (auto) Absolute Lymphs (auto) Total Counted Neutrophils % (Manual) Band Neutrophils % Lymphocytes % (Manual) Monocytes % (Manual) Metamyelocytes % Diff Path Review Platelet Estimate Plt Morphology Comment RBC Morphology Microcytosis ESR PT INR APTT Sodium Potassium Chloride Carbon Dioxide Anion Gap BUN Creatinine Estim Creat Clear Calc Est GFR (MDRD) Af Amer Est GFR (MDRD) Non-Af BUN/Creatinine Ratio Glucose Lactic Acid Calcium Phosphorus Magnesium Total Bilirubin AST ALT Alkaline Phosphatase Troponin I C-React Prot Ext Range B-Natriuretic Peptide Total Protein Albumin Globulin Albumin/Globulin Ratio Urine Color Yellow Urine Clarity Sl. Cloudy Urine pH 6.0 Ur Specific Irwin 1.010 Urine Protein 30 H Urine Glucose (UA) Normal Urine Ketones 5 H Urine Occult Blood 25 H Urine Nitrite Negative Urine Bilirubin 1 H Urine Urobilinogen 8 H Ur Leukocyte Esterase 100 H Urine RBC 0 SEEN Urine WBC 25-50 SEEN Ur Squamous Epith Cells 25-50 SEEN Ur Renal Epithelial Cell Urine Bacteria 3+ Fine Granular Casts WBC Casts Urine Mucus RARE Urine Test Negative Urine Opiates Screen NEGATIVE Urine Methadone Screen NEGATIVE Ur Barbiturates Screen NEGATIVE Ur Phencyclidine Scrn NEGATIVE Ur Amphetamines Screen POSITIVE H U Methamphetamin-MDMA NEGATIVE U Benzodiazepines Scrn NEGATIVE Urine Cocaine Screen NEGATIVE U Cannabinoids Screen NEGATIVE Ur Drug Screen Comment MRSA (PCR) 08/09/17 08/09/17 08/09/17 18:36 18:36 18:36 WBC RBC Hgb Hct MCV MCH MCHC RDW RDW Differential Plt Count MPV Immature Gran % (Auto) Neut % (Auto) Lymph % (Auto) Spalding % (Auto) Eos % (Auto) Baso % (Auto) Absolute Neuts (auto) Absolute Lymphs (auto) Total Counted Neutrophils % (Manual) Band Neutrophils % Lymphocytes % (Manual) Monocytes % (Manual) Metamyelocytes % Diff Path Review Platelet Estimate Plt Morphology Comment RBC Morphology Microcytosis ESR 5 PT 17.6 H INR 1.4 APTT 50.8 H Sodium Potassium Chloride Carbon Dioxide Anion Gap BUN Creatinine Estim Creat Clear Calc Est GFR (MDRD) Af Amer Est GFR (MDRD) Non-Af BUN/Creatinine Ratio Glucose Lactic Acid Calcium Phosphorus Magnesium 1.7 Total Bilirubin AST ALT Alkaline Phosphatase Troponin I < 0.02 C-React Prot Ext Range 180.00 H B-Natriuretic Peptide Total Protein Albumin Globulin Albumin/Globulin Ratio Urine Color Urine Clarity Urine pH Ur Specific Irwin Urine Protein Urine Glucose (UA) Urine Ketones Urine Occult Blood Urine Nitrite Urine Bilirubin Urine Urobilinogen Ur Leukocyte Esterase Urine RBC Urine WBC Ur Squamous Epith Cells Ur Renal Epithelial Cell Urine Bacteria Fine Granular Casts WBC Casts Urine Mucus Urine Test Urine Opiates Screen Urine Methadone Screen Ur Barbiturates Screen Ur Phencyclidine Scrn Ur Amphetamines Screen U Methamphetamin-MDMA U Benzodiazepines Scrn Urine Cocaine Screen U Cannabinoids Screen Ur Drug Screen Comment MRSA (PCR) 08/09/17 08/09/17 08/10/17 19:00 22:41 02:30 WBC RBC Hgb Hct MCV MCH MCHC RDW RDW Differential Plt Count MPV Immature Gran % (Auto) Neut % (Auto) Lymph % (Auto) Spalding % (Auto) Eos % (Auto) Baso % (Auto) Absolute Neuts (auto) Absolute Lymphs (auto) Total Counted Neutrophils % (Manual) Band Neutrophils % Lymphocytes % (Manual) Monocytes % (Manual) Metamyelocytes % Diff Path Review Platelet Estimate Plt Morphology Comment RBC Morphology Microcytosis ESR PT INR APTT Sodium Potassium Chloride Carbon Dioxide Anion Gap BUN Creatinine Estim Creat Clear Calc Est GFR (MDRD) Af Amer Est GFR (MDRD) Non-Af BUN/Creatinine Ratio Glucose Lactic Acid Calcium Phosphorus Magnesium Total Bilirubin AST ALT Alkaline Phosphatase Troponin I < 0.02 < 0.02 C-React Prot Ext Range B-Natriuretic Peptide Total Protein Albumin Globulin Albumin/Globulin Ratio Urine Color Urine Clarity Urine pH Ur Specific Irwin Urine Protein Urine Glucose (UA) Urine Ketones Urine Occult Blood Urine Nitrite Urine Bilirubin Urine Urobilinogen Ur Leukocyte Esterase Urine RBC Urine WBC Ur Squamous Epith Cells Ur Renal Epithelial Cell Urine Bacteria Fine Granular Casts WBC Casts Urine Mucus Urine Test Urine Opiates Screen Urine Methadone Screen Ur Barbiturates Screen Ur Phencyclidine Scrn Ur Amphetamines Screen U Methamphetamin-MDMA U Benzodiazepines Scrn Urine Cocaine Screen U Cannabinoids Screen Ur Drug Screen Comment MRSA (PCR) POSITIVE H 08/10/17 08/10/17 08/10/17 04:25 04:25 04:25 WBC 11.5 H RBC 3.34 L Hgb 10.1 L Hct 30.1 L MCV 90.1 MCH 30.2 MCHC 33.6 RDW 12.6 RDW Differential 40.6 Plt Count 33 L* MPV 11.9 Immature Gran % (Auto) Neut % (Auto) Not Reportable Lymph % (Auto) Spalding % (Auto) Eos % (Auto) Baso % (Auto) Absolute Neuts (auto) 10.5 H Absolute Lymphs (auto) 0.58 L Total Counted 100 Neutrophils % (Manual) 85 H Band Neutrophils % 6 H Lymphocytes % (Manual) 5 L Monocytes % (Manual) 2 Metamyelocytes % 2 H Diff Path Review Reviewed Platelet Estimate MKD DEC Plt Morphology Comment LARGE RBC Morphology N CHROM Microcytosis 1+ ESR PT INR APTT Sodium 137 Potassium 3.8 Chloride 108 H Carbon Dioxide 21.0 Anion Gap 8 BUN 15 Creatinine 1.10 H Estim Creat Clear Calc 64.58 Est GFR (MDRD) Af Amer 75 Est GFR (MDRD) Non-Af 62 BUN/Creatinine Ratio 13.6 Glucose 134 H Lactic Acid Calcium 6.7 L Phosphorus 2.2 L Magnesium 1.4 L Total Bilirubin 1.70 H AST 32 ALT 18 Alkaline Phosphatase 90 Troponin I C-React Prot Ext Range B-Natriuretic Peptide Total Protein 4.5 L Albumin 1.7 L Globulin 2.8 Albumin/Globulin Ratio 0.6 L Urine Color Urine Clarity Urine pH Ur Specific Irwin Urine Protein Urine Glucose (UA) Urine Ketones Urine Occult Blood Urine Nitrite Urine Bilirubin Urine Urobilinogen Ur Leukocyte Esterase Urine RBC Urine WBC Ur Squamous Epith Cells Ur Renal Epithelial Cell Urine Bacteria Fine Granular Casts WBC Casts Urine Mucus Urine Test Urine Opiates Screen Urine Methadone Screen Ur Barbiturates Screen Ur Phencyclidine Scrn Ur Amphetamines Screen U Methamphetamin-MDMA U Benzodiazepines Scrn Urine Cocaine Screen U Cannabinoids Screen Ur Drug Screen Comment MRSA (PCR) 08/10/17 08/10/17 08/10/17 04:25 08:35 08:40 WBC RBC Hgb Hct MCV MCH MCHC RDW RDW Differential Plt Count MPV Immature Gran % (Auto) Neut % (Auto) Lymph % (Auto) Spalding % (Auto) Eos % (Auto) Baso % (Auto) Absolute Neuts (auto) Absolute Lymphs (auto) Total Counted Neutrophils % (Manual) Band Neutrophils % Lymphocytes % (Manual) Monocytes % (Manual) Metamyelocytes % Diff Path Review Platelet Estimate Plt Morphology Comment RBC Morphology Microcytosis ESR PT INR APTT Sodium Potassium Chloride Carbon Dioxide Anion Gap BUN Creatinine Estim Creat Clear Calc Est GFR (MDRD) Af Amer Est GFR (MDRD) Non-Af BUN/Creatinine Ratio Glucose Lactic Acid Calcium Phosphorus Magnesium Total Bilirubin AST ALT Alkaline Phosphatase Troponin I < 0.02 C-React Prot Ext Range B-Natriuretic Peptide 720.9 H Total Protein Albumin Globulin Albumin/Globulin Ratio Urine Color Yellow Urine Clarity Sl. Cloudy Urine pH 6.0 Ur Specific Irwin 1.015 Urine Protein 100 H Urine Glucose (UA) Normal Urine Ketones 5 H Urine Occult Blood 150 H Urine Nitrite Positive H Urine Bilirubin 3 H Urine Urobilinogen 12 H Ur Leukocyte Esterase 500 H Urine RBC 5-10 SEEN Urine WBC 10-25 SEEN Ur Squamous Epith Cells 5-10 SEEN Ur Renal Epithelial Cell 10-25 SEEN Urine Bacteria 3+ Fine Granular Casts 0-5 SEEN WBC Casts 0-5 SEEN Urine Mucus 0 SEEN Urine Test Urine Opiates Screen Urine Methadone Screen Ur Barbiturates Screen Ur Phencyclidine Scrn Ur Amphetamines Screen U Methamphetamin-MDMA U Benzodiazepines Scrn Urine Cocaine Screen U Cannabinoids Screen Ur Drug Screen Comment MRSA (PCR) 08/10/17 16:15 WBC RBC Hgb Hct MCV MCH MCHC RDW RDW Differential Plt Count MPV Immature Gran % (Auto) Neut % (Auto) Lymph % (Auto) Spalding % (Auto) Eos % (Auto) Baso % (Auto) Absolute Neuts (auto) Absolute Lymphs (auto) Total Counted Neutrophils % (Manual) Band Neutrophils % Lymphocytes % (Manual) Monocytes % (Manual) Metamyelocytes % Diff Path Review Platelet Estimate Plt Morphology Comment RBC Morphology Microcytosis ESR PT INR APTT Sodium 135 L Potassium 4.4 Chloride 107 Carbon Dioxide 20.0 L Anion Gap 8 BUN 17 Creatinine 1.36 H Estim Creat Clear Calc 52.23 Est GFR (MDRD) Af Amer 59 L Est GFR (MDRD) Non-Af 49 L BUN/Creatinine Ratio 12.5 Glucose 203 H Lactic Acid Calcium 7.2 L Phosphorus 3.1 Magnesium 2.1 Total Bilirubin AST ALT Alkaline Phosphatase Troponin I C-React Prot Ext Range B-Natriuretic Peptide Total Protein Albumin Globulin Albumin/Globulin Ratio Urine Color Urine Clarity Urine pH Ur Specific Irwin Urine Protein Urine Glucose (UA) Urine Ketones Urine Occult Blood Urine Nitrite Urine Bilirubin Urine Urobilinogen Ur Leukocyte Esterase Urine RBC Urine WBC Ur Squamous Epith Cells Ur Renal Epithelial Cell Urine Bacteria Fine Granular Casts WBC Casts Urine Mucus Urine Test Urine Opiates Screen Urine Methadone Screen Ur Barbiturates Screen Ur Phencyclidine Scrn Ur Amphetamines Screen U Methamphetamin-MDMA U Benzodiazepines Scrn Urine Cocaine Screen U Cannabinoids Screen Ur Drug Screen Comment MRSA (PCR) Microbiology 08/09/17 13:00 Blood Culture (Wb) - Venous Bacteria Detection (PCR) - Final Staphylococcus aureus 08/09/17 13:00 Blood Culture (Wb) - Venous Blood Culture - Preliminary Meth. resistant Staph. aureus 08/09/17 13:15 Blood Culture (Wb) - Venous Blood Culture - Preliminary 08/09/17 12:30 Mucosa - Nasopharyngeal Influenza Types A,B Direct FA (ELADIA) - Final Dr. Wilfred Thakur-clinical immunologist Dr. Abhijit Tobias-infectious disease Operations: None Procedures: Central line placement - R subclavian on 08/09 for IV access Summary of Care Provided: The patient is a 32 year old F with a PMH of TV bacterial endocarditis in December of 2016 (due to MRSA and Pseudomonas), bioprosthetic mitral valve replacement with PM insertion at [facility] in December 2016 and intravenous drug abuse who presented to the emergency department at [facility] on 08/09/2017 complaining of diffuse myalgias and arthralgias, fever and ARGUETA. She was recently in [facility] for [facility] violation (drug screen was +) and got out on 07/25. Since getting out she has started to use IV meth again. She told me her last use was 6 days prior to presenting to the ED but, the urine tox screen was + for amphetamines. She denied cough, dysuria, vaginal DC, CP, SOB, Sore throat, N/V/Abd pain. She denied any hx of hepatitis or HIV. She is sexually active but denied vaginal DC. Urine test was negative. She had not seen a nuclear equipment design engineer or the cardiothoracic surgeon since the surgery. She has several missing teeth and caries present. She denied pain in the jaw. Vital signs at presentation to the emergency room were temperature 100.6, pulse rate 126, blood pressure 99/56, respiratory rate 18-22 and she was 98-100% saturated on room air. Blood pressure standing was 79/49. White blood cell count was 7.7 with 77% neutrophils. Hemoglobin was 10.1 with a normal MCV and normal RDW. Platelets were low at 51,000. Sodium was low at 134 and the potassium was 3.0. BUN was 11 with a creatinine of 0.71. Lactic acid was 2.0. Corrected serum calcium was within normal limits. LFTs were unremarkable. A clean catch urine was obtained and had 25-50 WBCs and 25-50 squamous epithelial cells. A catheterized specimen was sent on 08/10/2017 and showed 5-10 RBCs, 10-25 WBCs, 10-25 urine renal epithelial cells, 3+ bacteria 0- 5 WBC casts. Urine drug screen was positive for amphetamines. Chest X-ray showed no infiltrates, pleural effusions or pulmonary vascular congestion. PM was apparent on the CXR. She was admitted to a monitored bed on the Progressive Cardiac Care Unit for FUO with suspected recurrent Endocarditis. She was started on Vancomycin and Rocephin and was later transitioned to Vancomycin and Zosyn. She decompensated after admission and was transferred to the ICU for hypotension and a R subclavian central line was inserted for venous access. She was started on Levophed to maintain a MAP of 65. 2 of 2 blood cultures turned positive for MRSA in less than 24 hours after admission. SURYA was done in the AM on 08/10 in the ICU and showed an ejection fraction of 50-55% with mild global hypokinesis of the left ventricle. Bubble contrast study was negative for right to left interatrial shunt. There was moderate mitral valve insufficiency and a bioprosthetic tricuspid valve with 1+ TR. There was a large, dense, mobile fibrinous vegetation seen on the right atrial surface of the bioprosthetic tricuspid valve. There was no evidence of perivalvular abscess. The nuclear equipment design engineer performing the procedure recommended transfer to a tertiary care center for valve surgery. She was seen by Dr. Tobias from [place] and he agreed with Zosyn and Vancomycin and recommended an MRI of the cervical and thoracic spine due to neck pain to rule out possible discitis/epidural abscess. He felt she needed evaluated by a cardiothoracic surgeon and recommended transfer. Blood work obtained on 08/10 at 1600 showed an increased creatinine at 1.36. She is oliguric and has had only 165cc urine OP since midnight. PT is now up to 21.6 and the platelets in the a.m. on 2017 were 33,000. Fibrinogen and CBC are currently pending. Serial troponins were negative. Chest x-ray on 08/10/2017 showed increased pulmonary vascular congestion and a BNP was 721. A third blood culture has been obtained and the results are pending. [facility] refused transfer because she is still using drugs. [facility] also refused because the drug screen was + for amphetamines at admission. I was in contact with [facility] and they have graciously agreed to accept her in transfer but, they do not currently have an ICU bed available. She will be transferred when a bed becomes available. She is currently on Levophed at 25mcg and Vasopressin and vital signs are temperature 99.8, heart rate 98, blood pressure 97/55, respiratory rate 19 and she is 96% saturated on a 2 L nasal cannula. I approached her about calling her family but, she refused and told me she did not want them here. I will broach the subject again with her because I think she will need support. Addendum: 08/11/17 T-max overnight 101.2, current temp 99.7, blood pressure is 94/68 on vasopressin and 30 mics of Levophed, respiratory rate is 22 and she is 94% saturated on 3 L nasal cannula. Urine output 08/10/2017 was 490 cc and overnight she has had 250 cc. weight has increased from 146 lbs. 13 oz. at admission to 167 pounds and 2 ounces today. She was transfused 2 5 packs of PLT's last night for PLT count of 21,000 and today the PLT count is 29,000. Hemoglobin is stable at 10.3 and white blood cell count today is 19.7 with 81% neutrophils. Immature granulocytes are 3.9%. Retinae is 1.32 today, up from 1.193 118. Serum bicarb is 18 today. Albumin is 1.6. HIV and hepatitis panel are still pending. Blood culture drawn yesterday is + for GM + cocci. CXR shows new R pleural effusion and increased pulmonary vascular congestion along with atelectasis vs bibasilar infiltrates. Occasional cough alert and oriented X3, sitting up in a chair Lungs - no wheezes and no rales Heart regular with + gallop, no MM appreciated Telemetry completely paced Abdomen - soft, mildly distended, BS present but diminished + edema extremities feet and hands are cool to the touch and dusky, no splinter hemorrhages Has petechiae and has been scratching more agitated today Transfer scheduled for 8:15 AM to [facility] HIV and hepatitis panel are pending This note was generated with [employer] dictation software. It may contain incorrect words, spelling, and punctuation that were not noted in checking the note before signing. Home Medications: Medications to take at Discharge NK [NK] 08/09/17 Primary Care Physician: Care Physician,No Primary [Primary Care Provider] - Disposition: [facility] Minutes spent on discharge:: 45 Patient Condition:: Critical Meaningful Use Info Meaningful Use Diagnoses (Choose all that apply): None applicable
[2017-08-10 17:04] LABS: Absolute Lymphocyte Count 2.18 X10^3/ul (0.83-4.51); Absolute Neutrophil Count 23.2 X10^3/uL (2.0-7.7); Basophil# 0.06 X10^3/uL; Basophil% 0.2 % (0-1); Eosinophil# 0.03 X10^3/uL; Eosinophils% 0.1 % (0-5); Hematocrit 32.9 % (37-47); Lymphocyte # 2.18 X10^3/ul (4.0); Lymphocyte % 7.7 % (19-41); Mean Corp Hgb Conc 33.4 g/gl (32-36); Mean Corpuscular Hgb 29.8 pg (27.0-32.0); Mean Corpuscular Volume 89.2 fL (81-99); Monocyte# 2.42 X10^3/uL; Monocyte% 8.6 % (0-10); Neutrophil # 23.22 X10^3/uL (2.7-7.7); Neutrophil % 82.2 % (47-70); RBC Distribution Width CV 13.3 % (11.6-14.6); RBC Distribution Width SD 43.8 fl (35.1-43.9); Red Blood Count 3.69 M/mm3 (4.2-5.4); White Blood Count 28.3 K/mm3 (4.4-11.0)
[2017-08-10 17:29] LABS: Differential Indicated SCAN CRITERIA MET; POSITIVE COUNT YES; POSITIVE DIFFERENTIAL YES; POSITIVE MORPHOLOGY YES; Platelet Count 21 K/mm3 (150-450)
[2017-08-10 17:30] LABS: Crenated RBC 2+; Differential Comment SCANNED; Platelet Estimate MKD DEC (ADEQ)
[2017-08-10 18:11] LABS: Fibrinogen 95 mg/dl (203-444)
[2017-08-10] MEDS: Magnesium Hydroxide 30 ML UDC PO (21:15)
[2017-08-10] MEDS: 0.9% Normal Saline 1,000 ML 999 ML IV (23:04)
[2017-08-11] VITALS (20 sets, daily range): BP systolic 68–100; BP diastolic 32–68; PULSE 98–130; RESP 17–24; TEMP 37.4–38.4; O2SAT 86–100
[2017-08-11] MEDS: oxyCODONE 5 MG Tablet 10 MG PO ×2 (00:14→05:01)
[2017-08-11] MEDS: fentaNYL 100 MCG/2 ML Ampul 25 MCG IV ×3 (00:53→07:49)
[2017-08-11] MEDS: 0.9% NaCl Peripheral Flush Adult/Peds IV ×3 (00:54→07:48)
[2017-08-11] MEDS: Acetaminophen 325 MG Tablet 650 MG PO ×2 (02:01→07:57)
[2017-08-11] MEDS: 0.9% Normal Saline 1,000 ML 150 ML IV (02:02)
[2017-08-11 04:03] LABS: Absolute Lymphocyte Count 1.37 X10^3/ul (0.83-4.51); Absolute Neutrophil Count 14.6 X10^3/uL (2.0-7.7); Basophil# 0.04 X10^3/uL; Basophil% 0.2 % (0-1); Eosinophil# 0.04 X10^3/uL; Eosinophils% 0.2 % (0-5); Hematocrit 30.4 % (37-47); Hemoglobin 10.3 g/dl (12.0-15.0); Lymphocyte # 1.37 X10^3/ul (4.0); Lymphocyte % 7.8 % (19-41); Mean Corp Hgb Conc 33.9 g/gl (32-36); Mean Corpuscular Hgb 29.9 pg (27.0-32.0); Mean Corpuscular Volume 88.4 fL (81-99); Mean Platelet Vol. 11.7 fl (6.2-12.0); Monocyte# 1.34 X10^3/uL; Monocyte% 7.6 % (0-10); Neutrophil # 14.61 X10^3/uL (2.7-7.7); Neutrophil % 83.1 % (47-70); RBC Distribution Width CV 13.9 % (11.6-14.6); RBC Distribution Width SD 44.9 fl (35.1-43.9); Red Blood Count 3.44 M/mm3 (4.2-5.4); White Blood Count 17.6 K/mm3 (4.4-11.0)
[2017-08-11 04:10] LABS: Vancomycin, Trough Level 15.8 ug/mL (5.0-15.0)
[2017-08-11 04:11] LABS: Differential Indicated SCAN CRITERIA MET; POSITIVE COUNT YES; POSITIVE DIFFERENTIAL NO; POSITIVE MORPHOLOGY YES; Platelet Count 33 K/mm3 (150-450)
[2017-08-11 04:33] LABS: Differential Comment SCAN; Platelet Estimate MKD DEC (ADEQ)
[2017-08-11 05:19] LABS: International Normalized Ratio 1.9; Prothrombin Time (Protime)PT. 21.8 SECONDS (11.7-14.9)
[2017-08-11 05:27] LABS: ALB/GLOB Ratio 0.6 RATIO (0.9-2.4); AST(SGOT) 26 U/L (15-37); Alanine Aminotransfer ALT/SGPT 13 U/L (13-56); Albumin, Serum 1.6 g/dL (3.2-5.0); Alkaline Phosphatase 167 U/L (45-117); Anion Gap 11 (5-15); BUN 19 mg/dL (7-18); BUN/Creat Ratio 14.4 RATIO (10-20); Calcium,Total 6.8 mg/dL (8.5-10.1); Chloride 106 mmol/L (98-107); Creatinine, Serum 1.32 mg/dL (0.55-1.02); EST Glomerular Filtration Rate 50 mL/min (>60); Est Glom Filt Rate - Afr Amer 61 mL/min (>60); Estimated Creatinine Clearance 53.81 ml/min; Globulin 2.6 g/dL (2.2-4.2); Glucose 118 mg/dL (74-106); Magnesium 1.8 mg/dL (1.6-2.6); Phosphorus 3.7 mg/dL (2.5-4.9); Potassium 3.8 mmol/L (3.5-5.1); Protein, Total 4.2 g/dL (6.4-8.2); Sodium Level 135 mmol/L (136-145)
[2017-08-11 05:45] LABS: Absolute Lymphocyte Count 1.54 X10^3/ul (0.83-4.51); Absolute Neutrophil Count 15.9 X10^3/uL (2.0-7.7); Basophil# 0.07 X10^3/uL; Basophil% 0.4 % (0-1); Eosinophil# 0.02 X10^3/uL; Eosinophils% 0.1 % (0-5); Hematocrit 30.7 % (37-47); Hemoglobin 10.3 g/dl (12.0-15.0); Lymphocyte # 1.54 X10^3/ul (4.0); Lymphocyte % 7.8 % (19-41); Mean Corp Hgb Conc 33.6 g/gl (32-36); Mean Corpuscular Hgb 29.9 pg (27.0-32.0); Mean Platelet Vol. 12.9 fl (6.2-12.0); Monocyte% 7.1 % (0-10); Neutrophil # 15.94 X10^3/uL (2.7-7.7); Neutrophil % 80.7 % (47-70); RBC Distribution Width CV 13.9 % (11.6-14.6); RBC Distribution Width SD 44.2 fl (35.1-43.9); Red Blood Count 3.45 M/mm3 (4.2-5.4); White Blood Count 19.7 K/mm3 (4.4-11.0)
[2017-08-11 05:51] LABS: Differential Indicated SCAN CRITERIA MET; POSITIVE COUNT YES; POSITIVE DIFFERENTIAL YES; POSITIVE MORPHOLOGY YES; Platelet Count 29 K/mm3 (150-450)
--- NOTE | 2017-08-11 05:55 | RAD_ITS ---
STUDY: X-RAY CHEST REASON FOR EXAM: Female, 32 years old. Congestive heart failure TECHNIQUE: Single frontal view COMPARISON: August 10, 2017 FINDINGS: There is a RIGHT-sided PICC line. The tip is in the superior vena cava. There are increased bibasilar infiltrates. There is a new RIGHT pleural effusion. There is NO pneumothorax. Normal size heart. There has been open heart surgery. Normal visualized pulmonary arteries. Normal visualized aortic arch and descending thoracic aorta. Normal visualized thoracic spine. Normal visualized ribs, clavicles, and shoulders. There is no demonstrated abnormality of the visualized soft tissue structures of the upper abdomen. RAD/Chest 1 View (Portable) IMPRESSION: There is a RIGHT-sided PICC line. The tip is in the superior vena cava. There are increased bibasilar infiltrates. There is a new RIGHT pleural effusion. There is NO pneumothorax. Normal size heart. Electronically Signed: Will Green MD at 6:50 EST , Service support ,
[2017-08-11 06:49] LABS: Differential Comment SCAN; Platelet Estimate MKD DEC (ADEQ); Platelet Morphology LARGE
[2017-08-11 07:08] LABS: HEPATITIS B SURFACE AG Negative (Negative); Hepatitis A AB, Total Negative (Negative); Hepatitis A IgM Antibody Negative (Negative); Hepatitis B Core AB IgM Negative (Negative); Hepatitis B Core Ab Total Negative (Negative); Hepatitis C Ab >11.0 s/co ratio (0.0-0.9)
--- NOTE | 2017-08-11 07:09 | PN_ITS ---
Subjective: The patient was seen and examined at the bedside this morning. Events from the last 24 hours have been reviewed. The patient remains febrile and is now requiring both Levophed and vasopressin at high doses to maintain hemodynamic stability. Her clinical state has worsened over the last 24 hours. She reports a great deal of pain in her distal extremities and back. The patient's platelet count fell to 21,000 yesterday, for which she received a transfusion. She is overall net +8.7 L for the admission. Urine output is decreasing. Objective: The patient's most recent lab work, culture data and imaging studies have all been personally reviewed. Blood cultures dated August 09 were positive for the presence of MRSA. The anaerobic bottle was also noted to be positive. Repeat blood cultures sent on August 10 continue to demonstrate the presence of a gram-positive cocci. Transesophageal echocardiogram completed August 10 revealed mild global hypokinesis of the LV with an ejection fraction of 50-55%. 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 General: Alert, Cooperative, - - Quite toxic in appearance HEENT: Atraumatic, PERRLA, Normocephalic Oral: Dry Mucosa Neck: Supple, No Nodes, Trachea Midline, - - Subclavian central venous catheter in place Lungs: No wheeze, No rales, Diminished, Rhonchi, Tachypneic Cardiovascular: Normal S1, Normal S2, Murmur, Tachycardic Abdomen: Bowel Sounds Present, Soft, Non Tender Extremities: No clubbing, Cool, - - Cyanotic appearing distal extremities Skin: - - Diffuse excoriations with needle track curry present. Mottling of the skin is present Musculoskeletal: Tenderness Lymphatic: No Cervical, Supraclavicular, or Inguinal Adenopathy Neurological: Neuro grossly intact Psych/Mental Status: Normal Affect, Appropriate Vital Signs Temp Pulse Resp BP Pulse Ox 99.7 F H 98 21 H 93/51 L 97 08/11/17 07:00 08/11/17 07:00 08/11/17 07:00 08/11/17 07:00 08/11/17 07:00 Oxygen Flow Rate 3 Oxygen Delivery Method Nasal Cannula Weight: 167 lb 1.766 oz Body Mass Index (BMI) 25.2 Intake and Output for Last 24 Hours 08/09/17 08/10/17 08/11/17 23:59 23:59 23:59 Intake Total 1788 5489.4 / 5489.4 2184 / 2184 Output Total 490 / 490 250 / 250 Balance 1788 4999.4 / 4999.4 1934 / 1934 Labs (Last 48 Hours) 08/09/17 08/09/17 08/09/17 18:36 18:36 18:36 WBC RBC Hgb Hct MCV MCH MCHC RDW RDW Differential Plt Count MPV Immature Gran % (Auto) Neut % (Auto) Lymph % (Auto) [place] % (Auto) Eos % (Auto) Baso % (Auto) Absolute Neuts (auto) Absolute Lymphs (auto) Total Counted Neutrophils % (Manual) Band Neutrophils % Lymphocytes % (Manual) Monocytes % (Manual) Metamyelocytes % Differential Comment Diff Path Review Platelet Estimate Plt Morphology Comment RBC Morphology Microcytosis ESR 5 PT 17.6 H INR 1.4 APTT 50.8 H Fibrinogen Sodium Potassium Chloride Carbon Dioxide Anion Gap BUN Creatinine Estim Creat Clear Calc Est GFR (MDRD) Af Amer Est GFR (MDRD) Non-Af BUN/Creatinine Ratio Glucose Calcium Phosphorus Magnesium 1.7 Total Bilirubin AST ALT Alkaline Phosphatase Troponin I < 0.02 C-React Prot Ext Range 180.00 H B-Natriuretic Peptide Total Protein Albumin Globulin Albumin/Globulin Ratio Urine Color Urine Clarity Urine pH Ur Specific [place] Urine Protein Urine Glucose (UA) Urine Ketones Urine Occult Blood Urine Nitrite Urine Bilirubin Urine Urobilinogen Ur Leukocyte Esterase Urine RBC Urine WBC Ur Squamous Epith Cells Ur Renal Epithelial Cell Urine Bacteria Fine Granular Casts WBC Casts Urine Mucus Vancomycin Trough Hepatitis A IgM Ab Hepatitis A Ab Total Hep Bs Antigen Hep B Core Total Ab Hep B Core IgM Ab Hepatitis C Comment HIV 1&2 Antibody MRSA (PCR) Blood Type 08/09/17 08/09/17 08/09/17 18:36 19:00 22:41 WBC RBC Hgb Hct MCV MCH MCHC RDW RDW Differential Plt Count MPV Immature Gran % (Auto) Neut % (Auto) Lymph % (Auto) [place] % (Auto) Eos % (Auto) Baso % (Auto) Absolute Neuts (auto) Absolute Lymphs (auto) Total Counted Neutrophils % (Manual) Band Neutrophils % Lymphocytes % (Manual) Monocytes % (Manual) Metamyelocytes % Differential Comment Diff Path Review Platelet Estimate Plt Morphology Comment RBC Morphology Microcytosis ESR PT INR APTT Fibrinogen Sodium Potassium Chloride Carbon Dioxide Anion Gap BUN Creatinine Estim Creat Clear Calc Est GFR (MDRD) Af Amer Est GFR (MDRD) Non-Af BUN/Creatinine Ratio Glucose Calcium Phosphorus Magnesium Total Bilirubin AST ALT Alkaline Phosphatase Troponin I < 0.02 C-React Prot Ext Range B-Natriuretic Peptide Total Protein Albumin Globulin Albumin/Globulin Ratio Urine Color Urine Clarity Urine pH Ur Specific [place] Urine Protein Urine Glucose (UA) Urine Ketones Urine Occult Blood Urine Nitrite Urine Bilirubin Urine Urobilinogen Ur Leukocyte Esterase Urine RBC Urine WBC Ur Squamous Epith Cells Ur Renal Epithelial Cell Urine Bacteria Fine Granular Casts WBC Casts Urine Mucus Vancomycin Trough Hepatitis A IgM Ab Pending Hepatitis A Ab Total Pending Hep Bs Antigen Pending Hep B Core Total Ab Pending Hep B Core IgM Ab Pending Hepatitis C Comment Pending HIV 1&2 Antibody MRSA (PCR) POSITIVE H Blood Type 08/10/17 08/10/17 08/10/17 02:30 04:25 04:25 WBC 11.5 H RBC 3.34 L Hgb 10.1 L Hct 30.1 L MCV 90.1 MCH 30.2 MCHC 33.6 RDW 12.6 RDW Differential 40.6 Plt Count 33 L* MPV 11.9 Immature Gran % (Auto) Neut % (Auto) Not Reportable Lymph % (Auto) [place] % (Auto) Eos % (Auto) Baso % (Auto) Absolute Neuts (auto) 10.5 H Absolute Lymphs (auto) 0.58 L Total Counted 100 Neutrophils % (Manual) 85 H Band Neutrophils % 6 H Lymphocytes % (Manual) 5 L Monocytes % (Manual) 2 Metamyelocytes % 2 H Differential Comment Diff Path Review Reviewed Platelet Estimate MKD DEC Plt Morphology Comment LARGE RBC Morphology N CHROM Microcytosis 1+ ESR PT INR APTT Fibrinogen Sodium 137 Potassium 3.8 Chloride 108 H Carbon Dioxide 21.0 Anion Gap 8 BUN 15 Creatinine 1.10 H Estim Creat Clear Calc 64.58 Est GFR (MDRD) Af Amer 75 Est GFR (MDRD) Non-Af 62 BUN/Creatinine Ratio 13.6 Glucose 134 H Calcium 6.7 L Phosphorus Magnesium 1.4 L Total Bilirubin 1.70 H AST 32 ALT 18 Alkaline Phosphatase 90 Troponin I < 0.02 C-React Prot Ext Range B-Natriuretic Peptide Total Protein 4.5 L Albumin 1.7 L Globulin 2.8 Albumin/Globulin Ratio 0.6 L Urine Color Urine Clarity Urine pH Ur Specific [place] Urine Protein Urine Glucose (UA) Urine Ketones Urine Occult Blood Urine Nitrite Urine Bilirubin Urine Urobilinogen Ur Leukocyte Esterase Urine RBC Urine WBC Ur Squamous Epith Cells Ur Renal Epithelial Cell Urine Bacteria Fine Granular Casts WBC Casts Urine Mucus Vancomycin Trough Hepatitis A IgM Ab Hepatitis A Ab Total Hep Bs Antigen Hep B Core Total Ab Hep B Core IgM Ab Hepatitis C Comment HIV 1&2 Antibody MRSA (PCR) Blood Type 08/10/17 08/10/17 08/10/17 04:25 04:25 08:35 WBC RBC Hgb Hct MCV MCH MCHC RDW RDW Differential Plt Count MPV Immature Gran % (Auto) Neut % (Auto) Lymph % (Auto) [place] % (Auto) Eos % (Auto) Baso % (Auto) Absolute Neuts (auto) Absolute Lymphs (auto) Total Counted Neutrophils % (Manual) Band Neutrophils % Lymphocytes % (Manual) Monocytes % (Manual) Metamyelocytes % Differential Comment Diff Path Review Platelet Estimate Plt Morphology Comment RBC Morphology Microcytosis ESR PT INR APTT Fibrinogen Sodium Potassium Chloride Carbon Dioxide Anion Gap BUN Creatinine Estim Creat Clear Calc Est GFR (MDRD) Af Amer Est GFR (MDRD) Non-Af BUN/Creatinine Ratio Glucose Calcium Phosphorus 2.2 L Magnesium Total Bilirubin AST ALT Alkaline Phosphatase Troponin I < 0.02 C-React Prot Ext Range B-Natriuretic Peptide 720.9 H Total Protein Albumin Globulin Albumin/Globulin Ratio Urine Color Urine Clarity Urine pH Ur Specific [place] Urine Protein Urine Glucose (UA) Urine Ketones Urine Occult Blood Urine Nitrite Urine Bilirubin Urine Urobilinogen Ur Leukocyte Esterase Urine RBC Urine WBC Ur Squamous Epith Cells Ur Renal Epithelial Cell Urine Bacteria Fine Granular Casts WBC Casts Urine Mucus Vancomycin Trough Hepatitis A IgM Ab Hepatitis A Ab Total Hep Bs Antigen Hep B Core Total Ab Hep B Core IgM Ab Hepatitis C Comment HIV 1&2 Antibody MRSA (PCR) Blood Type 08/10/17 08/10/17 08/10/17 08:35 08:40 16:15 WBC 28.3 H RBC 3.69 L Hgb 11.0 L Hct 32.9 L MCV 89.2 MCH 29.8 MCHC 33.4 RDW 13.3 RDW Differential 43.8 Plt Count 21 L* MPV TNP Immature Gran % (Auto) 1.200 H Neut % (Auto) 82.2 H Lymph % (Auto) 7.7 L [place] % (Auto) 8.6 Eos % (Auto) 0.1 Baso % (Auto) 0.2 Absolute Neuts (auto) 23.2 H Absolute Lymphs (auto) 2.18 Total Counted Not Reportable Neutrophils % (Manual) Band Neutrophils % Lymphocytes % (Manual) Monocytes % (Manual) Metamyelocytes % Differential Comment SCANNED Diff Path Review May foll Platelet Estimate MKD DEC Plt Morphology Comment RBC Morphology 2+ Microcytosis ESR PT INR APTT Fibrinogen Sodium Potassium Chloride Carbon Dioxide Anion Gap BUN Creatinine Estim Creat Clear Calc Est GFR (MDRD) Af Amer Est GFR (MDRD) Non-Af BUN/Creatinine Ratio Glucose Calcium Phosphorus Magnesium Total Bilirubin AST ALT Alkaline Phosphatase Troponin I C-React Prot Ext Range B-Natriuretic Peptide Total Protein Albumin Globulin Albumin/Globulin Ratio Urine Color Yellow Urine Clarity Sl. Cloudy Urine pH 6.0 Ur Specific [place] 1.015 Urine Protein 100 H Urine Glucose (UA) Normal Urine Ketones 5 H Urine Occult Blood 150 H Urine Nitrite Positive H Urine Bilirubin 3 H Urine Urobilinogen 12 H Ur Leukocyte Esterase 500 H Urine RBC 5-10 SEEN Urine WBC 10-25 SEEN Ur Squamous Epith Cells 5-10 SEEN Ur Renal Epithelial Cell 10-25 SEEN Urine Bacteria 3+ Fine Granular Casts 0-5 SEEN WBC Casts 0-5 SEEN Urine Mucus 0 SEEN Vancomycin Trough Hepatitis A IgM Ab Hepatitis A Ab Total Hep Bs Antigen Hep B Core Total Ab Hep B Core IgM Ab Hepatitis C Comment HIV 1&2 Antibody Pending MRSA (PCR) Blood Type 08/10/17 08/10/17 08/10/17 16:15 16:15 16:15 WBC RBC Hgb Hct MCV MCH MCHC RDW RDW Differential Plt Count MPV Immature Gran % (Auto) Neut % (Auto) Lymph % (Auto) [place] % (Auto) Eos % (Auto) Baso % (Auto) Absolute Neuts (auto) Absolute Lymphs (auto) Total Counted Neutrophils % (Manual) Band Neutrophils % Lymphocytes % (Manual) Monocytes % (Manual) Metamyelocytes % Differential Comment Diff Path Review Platelet Estimate Plt Morphology Comment RBC Morphology Microcytosis ESR PT 21.6 H INR 1.9 APTT Fibrinogen 95 L* Sodium 135 L Potassium 4.4 Chloride 107 Carbon Dioxide 20.0 L Anion Gap 8 BUN 17 Creatinine 1.36 H Estim Creat Clear Calc 52.23 Est GFR (MDRD) Af Amer 59 L Est GFR (MDRD) Non-Af 49 L BUN/Creatinine Ratio 12.5 Glucose 203 H Calcium 7.2 L Phosphorus 3.1 Magnesium 2.1 Total Bilirubin AST ALT Alkaline Phosphatase Troponin I C-React Prot Ext Range B-Natriuretic Peptide Total Protein Albumin Globulin Albumin/Globulin Ratio Urine Color Urine Clarity Urine pH Ur Specific [place] Urine Protein Urine Glucose (UA) Urine Ketones Urine Occult Blood Urine Nitrite Urine Bilirubin Urine Urobilinogen Ur Leukocyte Esterase Urine RBC Urine WBC Ur Squamous Epith Cells Ur Renal Epithelial Cell Urine Bacteria Fine Granular Casts WBC Casts Urine Mucus Vancomycin Trough Hepatitis A IgM Ab Hepatitis A Ab Total Hep Bs Antigen Hep B Core Total Ab Hep B Core IgM Ab Hepatitis C Comment HIV 1&2 Antibody MRSA (PCR) Blood Type 08/10/17 08/11/17 08/11/17 18:35 03:20 03:20 WBC 17.6 H RBC 3.44 L Hgb 10.3 L Hct 30.4 L MCV 88.4 MCH 29.9 MCHC 33.9 RDW 13.9 RDW Differential 44.9 H Plt Count 33 L* MPV 11.7 Immature Gran % (Auto) 1.100 H Neut % (Auto) 83.1 H Lymph % (Auto) 7.8 L [place] % (Auto) 7.6 Eos % (Auto) 0.2 Baso % (Auto) 0.2 Absolute Neuts (auto) 14.6 H Absolute Lymphs (auto) 1.37 Total Counted Not Reportable Neutrophils % (Manual) Band Neutrophils % Lymphocytes % (Manual) Monocytes % (Manual) Metamyelocytes % Differential Comment SCAN Diff Path Review May foll Platelet Estimate MKD DEC Plt Morphology Comment RBC Morphology Microcytosis ESR PT INR APTT Fibrinogen Sodium Potassium Chloride Carbon Dioxide Anion Gap BUN Creatinine Estim Creat Clear Calc Est GFR (MDRD) Af Amer Est GFR (MDRD) Non-Af BUN/Creatinine Ratio Glucose Calcium Phosphorus Magnesium Total Bilirubin AST ALT Alkaline Phosphatase Troponin I C-React Prot Ext Range B-Natriuretic Peptide Total Protein Albumin Globulin Albumin/Globulin Ratio Urine Color Urine Clarity Urine pH Ur Specific [place] Urine Protein Urine Glucose (UA) Urine Ketones Urine Occult Blood Urine Nitrite Urine Bilirubin Urine Urobilinogen Ur Leukocyte Esterase Urine RBC Urine WBC Ur Squamous Epith Cells Ur Renal Epithelial Cell Urine Bacteria Fine Granular Casts WBC Casts Urine Mucus Vancomycin Trough 15.8 H Hepatitis A IgM Ab Hepatitis A Ab Total Hep Bs Antigen Hep B Core Total Ab Hep B Core IgM Ab Hepatitis C Comment HIV 1&2 Antibody MRSA (PCR) Blood Type A POSITIVE 08/11/17 08/11/17 08/11/17 05:00 05:00 05:00 WBC 19.7 H RBC 3.45 L Hgb 10.3 L Hct 30.7 L MCV 89.0 MCH 29.9 MCHC 33.6 RDW 13.9 RDW Differential 44.2 H Plt Count 29 L* MPV 12.9 H Immature Gran % (Auto) 3.900 H Neut % (Auto) 80.7 H Lymph % (Auto) 7.8 L [place] % (Auto) 7.1 Eos % (Auto) 0.1 Baso % (Auto) 0.4 Absolute Neuts (auto) 15.9 H Absolute Lymphs (auto) 1.54 Total Counted Not Reportable Neutrophils % (Manual) Band Neutrophils % Lymphocytes % (Manual) Monocytes % (Manual) Metamyelocytes % Differential Comment SCAN Diff Path Review May foll Platelet Estimate MKD DEC Plt Morphology Comment LARGE RBC Morphology Microcytosis ESR PT 21.8 H INR 1.9 APTT Fibrinogen Sodium 135 L Potassium 3.8 Chloride 106 Carbon Dioxide 18.0 L Anion Gap 11 BUN 19 H Creatinine 1.32 H Estim Creat Clear Calc 53.81 Est GFR (MDRD) Af Amer 61 Est GFR (MDRD) Non-Af 50 L BUN/Creatinine Ratio 14.4 Glucose 118 H Calcium 6.8 L Phosphorus 3.7 Magnesium 1.8 Total Bilirubin 1.50 H AST 26 ALT 13 Alkaline Phosphatase 167 H Troponin I C-React Prot Ext Range B-Natriuretic Peptide Total Protein 4.2 L Albumin 1.6 L Globulin 2.6 Albumin/Globulin Ratio 0.6 L Urine Color Urine Clarity Urine pH Ur Specific [place] Urine Protein Urine Glucose (UA) Urine Ketones Urine Occult Blood Urine Nitrite Urine Bilirubin Urine Urobilinogen Ur Leukocyte Esterase Urine RBC Urine WBC Ur Squamous Epith Cells Ur Renal Epithelial Cell Urine Bacteria Fine Granular Casts WBC Casts Urine Mucus Vancomycin Trough Hepatitis A IgM Ab Hepatitis A Ab Total Hep Bs Antigen Hep B Core Total Ab Hep B Core IgM Ab Hepatitis C Comment HIV 1&2 Antibody MRSA (PCR) Blood Type Microbiology 08/10/17 07:10 Blood Culture (Wb) - Central Line Blood Culture - Preliminary Clinical Impression(s) from Imaging Studies Chest X-Ray 08/09/17 12:35 IMPRESSION: Status post mitral valve replacement. No acute abnormality is seen. Electronically Signed: Carlos Resendez MD at 12:59 EST Tel [phone], Service support , Chest X-Ray 08/10/17 01:25 IMPRESSION: There is a RIGHT-sided central venous catheter. The tip is in the superior vena cava. There are bibasilar infiltrates greater on the RIGHT. There is NO pleural effusion. There is NO pneumothorax. Normal size heart. There has been open heart surgery. Electronically Signed: Will Green MD at 3:30 EST , Service support , Chest X-Ray 08/11/17 05:55 IMPRESSION: There is a RIGHT-sided PICC line. The tip is in the superior vena cava. There are increased bibasilar infiltrates. There is a new RIGHT pleural effusion. There is NO pneumothorax. Normal size heart. Electronically Signed: Will Green MD at 6:50 EST , Service support , Assessment/Plan RECOMMENDATIONS: 1. Continue broad-spectrum antibiotics, per infectious disease recommendations. 2. Continue Levophed and vasopressin to maintain a mean arterial pressure at or above 65 mmHg. 3. Patient to remain n.p.o. for now. 4. Pain control per hospitalist 5. Electrolyte repletion 6. The patient is awaiting transfer to [facility]. IMPRESSIONS: 1. 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 She has been adequately volume resuscitated. Plan to continue both Levophed and vasopressin to maintain a mean arterial pressure at or above 65 mmHg. 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 The patient is currently awaiting transfer to the [facility] for further evaluation/management. Pain control is being deferred to the hospitalist, accordingly. 2. Acute kidney injury Likely secondary to hemodynamic instability in the setting of #1. Continue vasopressor support to maintain a mean arterial pressure at or above 65 mmHg. Clark catheter is in place. Continue to monitor urine output. No indication for renal replacement therapy at this time. 3. Thrombocytopenia/DIC Likely secondary to #1. The patient was transfused platelets last evening. She remains thrombocytopenic without any overt signs of bleeding. 4. Hypomagnesemia/hypophosphatemia Electrolyte repletion has been ordered. Recheck levels post replacement. 5. Normocytic anemia/personal history of tricuspid valve endocarditis/personal history of IV drug abuse Complicates care, management, recovery and prognosis. Continue to monitor blood counts daily. TIME: 35 minutes of critical care time, independent of procedures, was spent addressing the patient's septic shock secondary to MRSA bacterial endocarditis, acute kidney injury, thrombocytopenia, hypomagnesemia, hypophosphatemia, review of all data and collaboration with the care team. ([id number]) Code Visit 9xxxx: [id number] Critical care first hour
[2017-08-11] MEDS: Sodium Bicarbonate 8.4% 50 ML Syringe 50 MEQ IV (07:50)
[2017-08-11] MEDS: Piperacil/Tazobactam 3.375 GM/50 ML ML IV (07:59)
[2017-08-11 09:35] LABS: HIV - WCH Non-Reactive (Nonreactive)
[2017-08-11 12:29] LABS: Pathologist Review Reviewed
[2017-08-11 12:29] LABS: Pathologist Review Reviewed
[2017-08-11 12:30] LABS: Pathologist Review Reviewed
[2017-08-11 13:21] LABS: Hep B Surface Antibodies Non Reactive (.)
== END 2017-08-11 08:45 | disposition short-term general hospital (02) | DRG 288 ==
LOC: ED 12:58 → PCU 16:44 → ICU 08-10 01:22
PROVIDERS: Internal Medicine; Admitting Provider Internal Medicine; Emergency Provider Emergency Medicine; Visit Provider Internal Medicine
DX: I33.0 Acute and subacute infective endocarditis (principal); R65.21 Severe sepsis with septic shock; D65 Disseminated intravascular coagulation [defibrination syndrome]; A41.02 Sepsis due to Methicillin resistant Staphylococcus aureus; N17.8 Other acute kidney failure; T82.6XXA Infection and inflammatory reaction due to cardiac valve prosthesis, initial encounter; E87.1 Hypo-osmolality and hyponatremia; I07.9 Rheumatic tricuspid valve disease, unspecified; E83.39 Other disorders of phosphorus metabolism; E87.6 Hypokalemia; Y83.1 Surgical operation with implant of artificial internal device as the cause of abnormal reaction of the patient, or of later complication, without mention of misadventure at the time of the procedure; Z87.891 Personal history of nicotine dependence; Z95.2 Presence of prosthetic heart valve; E83.42 Hypomagnesemia; F19.10 Other psychoactive substance abuse, uncomplicated
CPT/HCPCS: 36415; 71045; 80048; 80053; 80202; 80307; 81001; 81025; 83605; 83735; 83880; 84100; 84484; 85025; 85384; 85610; 85652; 85730; 86140; 86644; 86703; 86704; 86705; 86706; 86708; 86709; 86803; 86900; 86965; 87040; 87077; 87086; 87149; 87186; 87340; 87641; 87804; 93005; 93312; 93320; 93325; 99285; J7030; J7050; P9035; P9612; A4216; J2405; J3490

== ENCOUNTER → 2017-11-03 14:26 | Outpatient (CLI) | payer MEDICAID, SELFPAY ==
[2017-11-03 15:05] LABS: International Normalized Ratio 2.1; Prothrombin Time (Protime)PT. 23.4 SECONDS (11.7-14.9)
== END ==
DX: Z79.01 Long term (current) use of anticoagulants (principal); I38 Endocarditis, valve unspecified
CPT/HCPCS: 36415; 85610

== ENCOUNTER 2018-02-08 14:00 | Outpatient (RCR) | payer MEDICAID, SELFPAY ==
[2018-02-01 14:40] VITALS: BP 115/70; PULSE 90; RESP 18; TEMP 37.1
--- NOTE | 2018-02-01 16:15 | PCM.WC.HP ---
(1) Nonhealing ulcer of left lower extremity with fat layer exposed Status: Acute Current Visit: Yes Code(s): L97.922 - Non-pressure chronic ulcer of unspecified part of left lower leg with fat layer exposed (2) History of left below knee amputation Status: Acute Current Visit: Yes Code(s): Z89.512 - Acquired absence of left leg below knee (3) History of right above knee amputation Status: Acute Current Visit: Yes Code(s): Z89.611 - Acquired absence of right leg above knee (4) Idiopathic aseptic necrosis of right finger(s) Status: Acute Current Visit: Yes Code(s): M87.044 - Idiopathic aseptic necrosis of right finger(s) Comment: 4th right digit starting at DIP joint s/p sepsis (5) History of sepsis Status: Acute Current Visit: Yes Code(s): Z86.19 - Personal history of other infectious and parasitic diseases (6) Hx of bacterial endocarditis Status: Chronic Current Visit: Yes Code(s): Z86.79 - Personal history of other diseases of the circulatory system (7) Hx of mitral valve replacement Status: Chronic Current Visit: No Code(s): Z95.2 - Presence of prosthetic heart valve Comment: bioprosthetic valve (8) IV drug abuse Status: Chronic Current Visit: Yes Code(s): F19.10 - Other psychoactive substance abuse, uncomplicated Comment: IV methamphetamine currently, heroin in the past History of Present Illness Date of Service: 02/01/18 Chief Complaint: Nonhealing wound to left BKA and right hand fourth digit necrotic. History of Wound: Patient is a 32-year-old female who presented to the wound center for nonhealing wound to left BKA and right hand fourth digit necrosis. Past medical history includes history of mitral valve replacement, history of bacterial endocarditis, history of sepsis,and IV drug use. Medical history is limited due to patient being poor historian. Patient was unsure when her surgeries were for her right AKA and left BKA. It was sometime in August [address] Scott at [facility] and was due from her IV drug use and sepsis. She had an open area to her left BKA which Dr. Scott debrided after her surgery and now has improved in size from her wound vac, she is again unsure how long she has been on wound vac. She stated after surgery she was on halfway antibiotics which is now completed. Stated she has an appointment with Dr. Scott next month. She does have a history of PE which she currently is on Coumadin. Her pain is well controlled with her gabapentin. She voiced concerned about her right hand fourth digit that is necrotic and her surgeon Dr. Scott said it will eventually fall off and to contact hand surgeon. Denies pain to that area. Denies otherwise fever, chills, n/v, chest pain or tightness, sob, palpiations, or syncope. Denies any systemic signs of infection at this time. Past Medical History Past Medical History: Chronic Problems Hx of mitral valve replacement (Chronic) bioprosthetic valve Hx of bacterial endocarditis (Chronic) IV drug abuse (Chronic) IV methamphetamine currently, heroin in the past Surgical History: cholecystectomy, - - section ?3, mitral valve replacement with a bioprosthetic valve at [facility] Allergies/Adverse Reactions: Allergies No Known Allergies Allergy (Verified 08/09/17 12:06) Home Medications: Ambulatory Orders Medication Instructions Recorded Gabapentin [Gralise] 600 mg PO BID 02/01/18 Ibuprofen [Ibu] 800 mg PO 4X/DAY PRN PRN 02/01/18 Metoprolol Succinate 100 mg PO DAILY 02/01/18 Warfarin [Coumadin ([facility])] 7.5 mg PO DAILY 02/01/18 - Family History Maternal Cancer - breast CA Paternal - - colon CA Smoking Status: Current every day smoker Review of Systems Constitutional: Denies: Chills, Fever, Weight Change Eyes: Denies: Pain, Vision Change HEENT: Denies: Difficulty Hearing, Difficulty Swallowing, Sinus Congestion Cardiovascular: Denies: Chest Pain, Palpitations Respiratory: Denies: Cough, Shortness of Breath Gastrointestinal: Denies: Diarrhea, Nausea, Vomiting Genitourinary: Denies: Dysuria, Hematuria Musculoskeletal: Reports: - - right hand 4th digit necrotic Skin: Reports: Wounds - see hpi Psychiatric: Denies: Anxiety, Depression, Homicidal Ideations Endocrine: Denies: Heat/ Cold Intolerance, Polydipsia, Polyuria Hematologic/ Lymphatic: Denies: Easy Bruising, Easy Bleeding - Physical Exam Vital Signs Temp Pulse Resp BP 98.7 F 90 18 115/70 02/01/18 14:40 02/01/18 14:40 02/01/18 14:40 02/01/18 14:40 General: Alert, Oriented x3, Cooperative, No apparent distress HEENT: PERRLA, EOMI Oral: Moist Mucosa Neck: Supple, No JVD, Negative Carotid Bruits Lungs: Clear to auscultation, Normal air movement, No rhonchi, No wheeze, No rales Cardiovascular: Regular rate, Regular Rhythm Abdomen: Bowel Sounds Present, Soft, Non Tender Extremities: No edema - BLUE no edema, no edema to BLLE stumps Skin: Ulcer/ Wound - left BKA stump small open skin ulceration on incision line with adherant slough, no signs of localized infection, no pain or discharge noted Wound Measurements and Assessment WC - Nurse 1 - General Ulcer Measurement Start: 02/01/18 14:39 Freq: Status: Active Protocol: Activity Type Activity Date Activity User E-Sign Co-Sign Detail Recorded Client Recorded Date Recorded By Document 02/01/18 14:40 MW [id number] 02/01/18 14:46 MW 02/01/18 14:40 Wound Center Nurse 1 [Ulcer Assessment] # 2 Right 4th digit necrosis -Combined with other wound No -Current Size (cm) - Length 2.2 -Current Size (cm) - Width 4.5 -Current Size (cm) - Depth 0 -Total Square Cm 9.90 -Date of Last Picture (Recall this 02/01/18 field) -Photo Taken Yes -Epithelialization None Present -Tunneling No -Undermining/Tunneling No -Circular Undermining No -Exudate Amt None Present (0 %) -Granulation Amt None Present (0 %) -Slough/Fibrin Yes -Necrosis Amt Large (67-100%) -Necrotic Tissue Type Eschar -Structure Exposed N/A -Texture (Kasey-wound Skin Appearance) No Abnormality Assessed -Moisture (Kasey-wound Skin Appearance Assessed ) Dry/Scaly -Color (Kasey-wound Skin Appearance) Assessed Rubor -Temperature (Kasey-wound Skin No Abnormality Appearance) (Pt Warm) -Tenderness on Palpation (Kasey-wound No Skin Appearance) -Ulcer Cleansing Not Cleansed -Foul Odor after Cleansing No #1 Left Medial LE -Combined with other wound No -Current Size (cm) - Length 0.9 -Current Size (cm) - Width 2.6 -Current Size (cm) - Depth 0.1 -Total Square Cm 2.34 -Date of Last Picture (Recall this 02/01/18 field) -Photo Taken Yes -Epithelialization None Present -Tunneling No -Undermining/Tunneling No -Circular Undermining No -Exudate Amt Small (1-33%) -Exudate Type Serosanguineous -Wound Margin Flat & Intact -Granulation Amt Large (67-100%) -Granulation Quality Red -Slough/Fibrin Yes -Necrosis Amt Small (1-33%) -Necrotic Tissue Type Adherent Slough -Structure Exposed N/A -Texture (Kasey-wound Skin Appearance) Assessed Scarring -Moisture (Kasey-wound Skin Appearance No Abnormality ) Assessed -Color (Kasey-wound Skin Appearance) No Abnormality Assessed -Temperature (Kasey-wound Skin No Abnormality Appearance) (Pt Warm) -Tenderness on Palpation (Kasey-wound No Skin Appearance) -Ulcer Cleansing Rinsed/ Irrigated with Saline -Foul Odor after Cleansing No -Anesthetic Used 4% Lidocaine Solution [Edema Assessment] -Lower Limb Edema Present No WC - Nurse 2 - General Ulcer CM Notes Start: 02/01/18 14:39 Freq: Status: Active Protocol: Activity Type Activity Date Activity User E-Sign Co-Sign Detail Recorded Client Recorded Date Recorded By Document 02/01/18 15:09 [id number] 02/01/18 15:15 02/01/18 15:09 Wound Center Nurse 2 [Procedure/Treatment] # 2 Right 4th digit necrosis -Time 15:10 #1 Left Medial LE -Time 15:10 -Correct Patient Yes -Correct Side, Site, Position Yes -Correct Procedure Yes -Procedure Performed Yes -Type of Procedure Debridement -Clinical Debridement Subcutaneous -Post Debridement Size (cm) - Length 1.2 -Post Debridement Size (cm) - Width 3.2 -Post Debridement Size (cm) - Depth 0.1 -Total Square Cm 3.84 -Wound/Ulcer Outcome Not Healed -Ulcer Cleansing Not Cleansed -Foul Odor after Cleansing No -Bioengineered Tissue No -Bleeding Controlled with NA -Treatment Response Procedure Tolerated Well [See Physician Procedure note for Specifics] Pain Scale: 0-10 Numeric [Pain] -Is Patient Pain Free? Yes Musculoskeletal: - - fourth digit right hand starting at DIP joint necrotic Neurological: Neuro grossly intact Psych/Mental Status: Normal Affect, Appropriate, Alert and oriented to time, place, person, mood and affect Debridement Note Post-Debridement Measurements/Treatment WC - Nurse 2 - General Ulcer CM Notes Start: 02/01/18 14:39 Freq: Status: Active Protocol: Activity Type Activity Date Activity User E-Sign Co-Sign Detail Recorded Client Recorded Date Recorded By Document 02/01/18 15:09 [id number] 02/01/18 15:15 02/01/18 15:09 Wound Center Nurse 2 # 2 Right 4th digit necrosis -Time 15:10 #1 Left Medial LE -Time 15:10 -Correct Patient Yes -Correct Side, Site, Position Yes -Correct Procedure Yes -Procedure Performed Yes -Type of Procedure Debridement -Clinical Debridement Subcutaneous -Post Debridement Size (cm) - Length 1.2 -Post Debridement Size (cm) - Width 3.2 -Post Debridement Size (cm) - Depth 0.1 -Total Square Cm 3.84 -Wound/Ulcer Outcome Not Healed -Ulcer Cleansing Not Cleansed -Foul Odor after Cleansing No -Bioengineered Tissue No -Bleeding Controlled with NA -Treatment Response Procedure Tolerated Well Pain Scale: 0-10 Numeric Is Patient Pain Free? Yes Wound debrided: Left BKA stump skin ulcer Laterality: Left Type of Debridement: Excisional debridement Anesthesia Used: 5% Lidocaine Gel Depth: Down to and including healthy tissue, in the subcutaneous layer Percentage of wound debrided: 100 Instrument Used: 5mm curette Tissue Removed: slough and Devitalized tissue debrided and removed Severity: Fat Layer Exposed Amount of bleeding with debridement: Mild Bleeding Controlled with: Pressure Patient tolerated procedure well removed small retained suture without difficulties Assessment/Plan Active Problems Hx of bacterial endocarditis (Chronic) IV drug abuse (Chronic) IV methamphetamine currently, heroin in the past Nonhealing ulcer of left lower extremity with fat layer exposed (Acute) History of left below knee amputation (Acute) History of right above knee amputation (Acute) Idiopathic aseptic necrosis of right finger(s) (Acute) 4th right digit starting at DIP joint s/p sepsis History of sepsis (Acute) Assessment: see above diagnoses Plan: The patient was seen and examined at the wound center today and was updated on the plan of care. A subcutaneous debridement was performed today. The patient tolerated the procedure well. The patients wound care will consist of discontinuing wound VAC and consists of applying Aquacel extra, Adaptic with gauze daily and prn. Baseline bloodwork ordered. Patient educated on the importance of diet on wound healing and instructed to increase protein and vitamin C intake. Requested previous records from [facility] for continuity of care. Patient verbalized understanding. Patient will follow up at wound healing center in one week or sooner if needed. She will be referred to Dr. Reina her right hand fourth digit necrotic area. This note was generated with [employer] dictation software. It may contain incorrect words, spelling, and punctuation that were not noted in checking the note before signing. Code Visit Office Visits / Consults: [id number] OV L4 Est 111xxx-113xx: [id number] [place] subq tissue 20 sq cm/<
[2018-02-08 13:56] VITALS: BP 118/70; PULSE 91; RESP 18; TEMP 36.6
--- NOTE | 2018-02-08 16:30 | PCM.WC.PN ---
(1) Nonhealing ulcer of left lower extremity with fat layer exposed Status: Acute Current Visit: Yes Code(s): L97.922 - Non-pressure chronic ulcer of unspecified part of left lower leg with fat layer exposed (2) History of left below knee amputation Status: Acute Current Visit: Yes Code(s): Z89.512 - Acquired absence of left leg below knee (3) History of right above knee amputation Status: Acute Current Visit: Yes Code(s): Z89.611 - Acquired absence of right leg above knee (4) Idiopathic aseptic necrosis of right finger(s) Status: Acute Current Visit: Yes Code(s): M87.044 - Idiopathic aseptic necrosis of right finger(s) Comment: 4th right digit starting at DIP joint s/p sepsis (5) History of sepsis Status: Acute Current Visit: Yes Code(s): Z86.19 - Personal history of other infectious and parasitic diseases (6) Hx of bacterial endocarditis Status: Chronic Current Visit: Yes Code(s): Z86.79 - Personal history of other diseases of the circulatory system (7) Hx of mitral valve replacement Status: Chronic Current Visit: No Code(s): Z95.2 - Presence of prosthetic heart valve Comment: bioprosthetic valve (8) IV drug abuse Status: Chronic Current Visit: Yes Code(s): F19.10 - Other psychoactive substance abuse, uncomplicated Comment: IV methamphetamine currently, heroin in the past Type of Wound Date of Service: 02/08/18 Chief Complaint: Nonhealing wound to left BKA and right hand fourth digit necrotic. History of Wound: Patient is a 32-year-old female who presented to the wound center for nonhealing wound to left BKA and right hand fourth digit necrosis. Past medical history includes history of mitral valve replacement, history of bacterial endocarditis, history of sepsis,and IV drug use. Medical history is limited due to patient being poor historian. Patient was unsure when her surgeries were for her right AKA and left BKA. It was sometime in August [address] Scott at [facility] and was due from her IV drug use and sepsis. She had an open area to her left BKA which Dr. Scott debrided after her surgery and now has improved in size from her wound vac, she is again unsure how long she has been on wound vac. She stated after surgery she was on salvage determiner antibiotics which is now completed. Stated she has an appointment with Dr. Scott next month. She does have a history of PE which she currently is on Coumadin. Her pain is well controlled with her gabapentin. She voiced concerned about her right hand fourth digit that is necrotic and her surgeon Dr. Scott said it will eventually fall off and to contact hand surgeon. Denies pain to that area. Denies otherwise fever, chills, n/v, chest pain or tightness, sob, palpiations, or syncope. Denies any systemic signs of infection at this time. Progress of Wound: Ulcer is stable and improving in size, no pain and minmal serous discharge noted at this time. - Physical Exam Vital Signs Temp Pulse Resp BP 97.8 F 91 18 118/70 02/08/18 13:56 02/08/18 13:56 02/08/18 13:56 02/08/18 13:56 General: Alert, Oriented x3, Cooperative, No apparent distress HEENT: Atraumatic Cardiovascular: Regular rate Skin: Ulcer/ Wound - ulcer left stump with adherant slough present, no signs of infection at this time, minimal drainage Wound Measurements and Assessment WC - Nurse 1 - General Ulcer Measurement Start: 02/01/18 14:39 Freq: Status: Active Protocol: Activity Type Activity Date Activity User E-Sign Co-Sign Detail Recorded Client Recorded Date Recorded By Document 02/08/18 13:56 AN [id number] 02/08/18 14:01 AN 02/08/18 13:56 Wound Center Nurse 1 [Ulcer Assessment] #1 Left Medial LE -Current Size (cm) - Length 0.3 -Current Size (cm) - Width 0.5 -Current Size (cm) - Depth 0.1 -Total Square Cm 0.15 -Photo Taken No -Exudate Amt Small (1-33%) -Exudate Type Sanguineous -Wound Margin Distinct, Outline Attached -Texture (Kasey-wound Skin Appearance) No Abnormality -Moisture (Kasey-wound Skin Appearance No Abnormality ) -Color (Kasey-wound Skin Appearance) No Abnormality -Temperature (Kasey-wound Skin No Abnormality Appearance) (Pt Warm) -Tenderness on Palpation (Kasey-wound No Skin Appearance) -Ulcer Cleansing Rinsed/ Irrigated with Saline -Foul Odor after Cleansing No -Anesthetic Used 4% Lidocaine Solution WC - Nurse 2 - General Ulcer CM Notes Start: 02/01/18 14:39 Freq: Status: Active Protocol: Activity Type Activity Date Activity User E-Sign Co-Sign Detail Recorded Client Recorded Date Recorded By Document 02/08/18 14:21 [id number] 02/08/18 14:27 02/08/18 14:21 Wound Center Nurse 2 [Procedure/Treatment] -Time 14:21 -Correct Patient Yes -Correct Side, Site, Position Yes -Correct Procedure Yes -Procedure Performed Yes -Type of Procedure Debridement -Clinical Debridement Subcutaneous -Post Debridement Size (cm) - Length 0.5 -Post Debridement Size (cm) - Width 1.1 -Post Debridement Size (cm) - Depth 0.1 -Total Square Cm 0.55 -Wound/Ulcer Outcome Not Healed -Ulcer Cleansing Rinsed/ Irrigated with Saline -Foul Odor after Cleansing No -Bioengineered Tissue No -Topical Lidocaine (%) 4 -Lidocaine (ml) 5 -Bleeding Controlled with NA -Treatment Response Procedure Tolerated Well [See Physician Procedure note for Specifics] Pain Scale: 0-10 Numeric [Pain] -Is Patient Pain Free? Yes Neurological: Neuro grossly intact Psych/Mental Status: Normal Affect, Appropriate, Alert and oriented to time, place, person, mood and affect Debridement Note Post-Debridement Measurements/Treatment - Nurse 2 - General Ulcer CM Notes Start: 02/01/18 14:39 Freq: Status: Active Protocol: Activity Type Activity Date Activity User E-Sign Co-Sign Detail Recorded Client Recorded Date Recorded By Document 02/01/18 15:09 [id number] 02/01/18 15:15 Document 02/08/18 14:21 [id number] 02/08/18 14:27 02/01/18 02/08/18 15:09 14:21 Wound Center Nurse 2 # 2 Right 4th digit necrosis -Time 15:10 #1 Left Medial LE -Time 15:10 14:21 -Correct Patient Yes Yes -Correct Side, Site, Position Yes Yes -Correct Procedure Yes Yes -Procedure Performed Yes Yes -Type of Procedure Debridement Debridement -Clinical Debridement Subcutaneous Subcutaneous -Post Debridement Size (cm) - Length 1.2 0.5 -Post Debridement Size (cm) - Width 3.2 1.1 -Post Debridement Size (cm) - Depth 0.1 0.1 -Total Square Cm 3.84 0.55 -Wound/Ulcer Outcome Not Healed Not Healed -Ulcer Cleansing Not Cleansed Rinsed/ Irrigated with Saline -Foul Odor after Cleansing No No -Bioengineered Tissue No No -Topical Lidocaine (%) 4 -Lidocaine (ml) 5 -Bleeding Controlled with NA NA -Treatment Response Procedure Procedure Tolerated Well Tolerated Well Pain Scale: 0-10 Numeric Is Patient Pain Free? Yes Yes Wound debrided: left stump ulcer Type of Debridement: Excisional debridement Anesthesia Used: 5% Lidocaine Gel Depth: in the subcutaneous layer Percentage of wound debrided: 100 Instrument Used: 3mm curette Tissue Removed: slough and devitalized tissue Severity: Fat Layer Exposed Amount of bleeding with debridement: Mild Bleeding Controlled with: Pressure Patient tolerated procedure well Assessment/Plan Active Problems Hx of bacterial endocarditis (Chronic) IV drug abuse (Chronic) IV methamphetamine currently, heroin in the past Nonhealing ulcer of left lower extremity with fat layer exposed (Acute) History of left below knee amputation (Acute) History of right above knee amputation (Acute) Idiopathic aseptic necrosis of right finger(s) (Acute) 4th right digit starting at DIP joint s/p sepsis History of sepsis (Acute) Assessment: see above diagnoses Plan: The patient was seen and examined at the wound center today and was updated on the plan of care. A subcutaneous debridement was performed today. The patient tolerated the procedure well. The patients wound care will consist of applying Aquacel extra, Adaptic with gauze daily and prn. Continue with home health. Baseline bloodwork ordered and pending. Patient educated on the importance of diet on wound healing and instructed to increase protein and vitamin C intake. Requested previous records from [facility] for continuity of care. Patient verbalized understanding. Patient will follow up at wound healing center in one week or sooner if needed. She will be referred to Dr. Reina for her right hand fourth digit necrotic area. This note was generated with [employer] dictation software. It may contain incorrect words, spelling, and punctuation that were not noted in checking the note before signing. Code Visit 111xxx-113xx: [id number] [place] subq tissue 20 sq cm/<
[2018-02-08 16:43] LABS: Hemoglobin 13.1 g/dl (12.0-15.0); Mean Corp Hgb Conc 32.8 g/gl (32-36); Mean Corpuscular Hgb 27.4 pg (27.0-32.0); Mean Corpuscular Volume 83.7 fL (81-99); Mean Platelet Vol. 10.3 fl (6.2-12.0); Platelet Count 166 K/mm3 (150-450); RBC Distribution Width CV 14.8 % (11.6-14.6); RBC Distribution Width SD 45.6 fl (35.1-43.9); Red Blood Count 4.78 M/mm3 (4.2-5.4); White Blood Count 6.1 K/mm3 (4.4-11.0)
[2018-02-08 16:44] LABS: Scan Indicated on CBC? Y/N NO
[2018-02-08 16:47] LABS: Erythrocyte Sedimentation Rate 14 mm/hr (0-20)
[2018-02-08 17:00] LABS: Anion Gap 7 (5-15); BUN 20 mg/dL (7-18); BUN/Creat Ratio 43.1 RATIO (10-20); Calcium,Total 8.8 mg/dL (8.5-10.1); Chloride 108 mmol/L (98-107); Creatinine, Serum 0.46 mg/dL (0.55-1.02); EST Glomerular Filtration Rate 167 mL/min (>60); Est Glom Filt Rate - Afr Amer 202 mL/min (>60); Glucose 94 mg/dL (74-106); Potassium 3.4 mmol/L (3.5-5.1); Prealbumin 35.4 mg/dL (20.0-40.0); Sodium Level 144 mmol/L (136-145)
== END 2018-02-09 23:59 ==
LOC: WC 14:00
PROVIDERS: Visit Provider Nurse Practitioner Family
DX: T87.54 Necrosis of amputation stump, left lower extremity (principal); Y83.8 Other surgical procedures as the cause of abnormal reaction of the patient, or of later complication, without mention of misadventure at the time of the procedure; Z95.2 Presence of prosthetic heart valve; Z86.711 Personal history of pulmonary embolism; Z79.01 Long term (current) use of anticoagulants; F17.200 Nicotine dependence, unspecified, uncomplicated
CPT/HCPCS: 11042; 80048; 84134; 85027; 85652; 99205; G0463

== ENCOUNTER 2018-02-22 14:45 | Outpatient (RCR) | payer MEDICAID, SELFPAY ==
[2018-02-10 01:51] VITALS: BP 118/70; PULSE 91; RESP 18; TEMP 36.6
== END 2018-03-11 23:59 ==
LOC: WC 14:45
PROVIDERS: Visit Provider Nurse Practitioner Family
DX: Z09 Encounter for follow-up examination after completed treatment for conditions other than malignant neoplasm (principal)

== ENCOUNTER 2018-06-13 14:46 | Emergency (ER) | payer MEDICAID, SELFPAY ==
[2018-06-13 14:47] VITALS: BP 107/62; PULSE 87; RESP 16; TEMP 36.7; O2SAT 95
--- NOTE | 2018-06-13 15:19 | ED.VISSUMM ---
- ER Visit Summary Date of Service: 06/13/18 Chief Complaint: Abscess History of Present Illness: The patient is a 32 F who presents for abscess to the right forehead. Patient states she noted a pimple-like lesion just above her right eyebrow yesterday. She has had some drainage from the area. She is a history of MRSA infection and endocarditis. She has not had fever or chills. Physical Examination: Vital signs unremarkable. Patient is afebrile. Head neck examination was a 2 x 1 cm fluctuant abscess just above the lateral acid of the right eyebrow. There is mild edema of the right upper eyelid. Right eye itself appears normal. Extraocular movements are fully intact. Heart is regular rate and rhythm with 2/6 murmur. Lung sounds are clear. Abdomen is soft and nontender. Test Results: [] Emergency Department Course and Treatment: Treatment options were discussed with the patient including warm compresses and oral antibiotics versus I&D. At this time patient elects to try oral antibiotics at home first. She does understand that if this is unsuccessful she may have to return for an I&D. Patient will be given Bactrim and Keflex. She is known to Dr. matthew in the wound center and will follow up there. Treatment Plan: [] Disposition: Discharge Impression: Right facial abscess This note was generated with [employer] dictation software. It may contain incorrect words, spelling, and punctuation that were not noted in review of the chart prior to signing ED Disposition - Plan for ED Patient: Chief Complaint: Abscess Referrals: Care Physician,No Primary [Primary Care Provider] -
--- NOTE | 2018-06-13 15:21 | ED.DEP ---
ED Disposition - Plan for ED Patient: Disposition: Home or Assisted Living Chief Complaint: Abscess Instructions: ED Staph Infec Abx Tx Only Prescriptions: Cephalexin [Keflex] 500 mg PO Q6 #40 capsule Smz/Tmp Ds [Bactrim Ds] 1 tablet PO BID #20 tablet Referrals: Ino Reina MD [STAFF PHYSICIAN] - 5-7 Days
[2018-06-13] MEDS: Cephalexin 250 MG Capsule 500 MG PO (16:01)
[2018-06-13] MEDS: Smz/Tmp Ds Tablet 1 TABLET PO (16:01)
[2018-06-13 16:02] VITALS: TEMP 36.5
[2018-06-13 16:08] VITALS: PULSE 77; RESP 13; TEMP 36.6; O2SAT 99
== END 2018-06-13 16:09 | disposition home or self-care (01) ==
LOC: ED 15:53
PROVIDERS: Emergency Provider Emergency Medicine; Family Provider Family Medicine; PCP Family Medicine
DX: L02.01 Cutaneous abscess of face (principal); Z86.14 Personal history of Methicillin resistant Staphylococcus aureus infection; R01.1 Cardiac murmur, unspecified
CPT/HCPCS: 99283

== ENCOUNTER 2018-06-27 18:29 | Emergency (ER) | payer MEDICAID, SELFPAY ==
[2018-06-27 18:30] VITALS: BP 108/59; PULSE 98; RESP 16; TEMP 36.6; O2SAT 98
--- NOTE | 2018-06-27 20:00 | EKG12_ITS ---
Test Reason : CHEST OTHER Blood Pressure : / mmHG Vent. Rate : 086 BPM Atrial Rate : 086 BPM P-R Int : 188 ms QRS Dur : 154 ms QT Int : 442 ms P-R-T Axes : 058 -30 072 degrees QTc Int : 528 ms Atrial-sensed ventricular-paced rhythm Abnormal ECG Confirmed by OTONIEL DEAN, KESHAWN ([id number]), restaurant expeditor ANIA RICO ([id number]) on 07/02/2018 9:12:48 AM Referred By: TONY Confirmed By:KESHAWN FREDERICK MD
--- NOTE | 2018-06-27 20:00 | RAD_ITS ---
STUDY: X-RAY CHEST REASON FOR EXAM: Female, 32 years old. Chest pain TECHNIQUE: Frontal and lateral views of the chest. COMPARISON: August 11, 2017 FINDINGS: Sternotomy wires. Transmyocardial electrodes unchanged. The lungs are clear and expanded. There is no demonstrated pleural abnormality. Normal size heart. Normal mediastinum and demetra. Normal visualized pulmonary arteries. Normal visualized aortic arch and descending thoracic aorta. Normal visualized thoracic spine. Normal visualized ribs, clavicles, and shoulders. There is no demonstrated abnormality of the visualized soft tissue structures of the upper abdomen. RAD/Chest PA and Lateral IMPRESSION: No acute disease Electronically Signed: Jon Cosme MD at 21:48 EST , Service support ,
--- NOTE | 2018-06-27 20:01 | ED.VIS.GEN ---
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 no sob. no LE swelling/pains. 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 No history of DVTs or PEs. Takes no anticoagulant. No hemoptysis. No oral contraceptive pills. Pleuritic chest discomfort that she cannot push on and reproduce, is at one specific location without any radiation.. - Past Medical History (1) Hx of bacterial endocarditis Status: Resolved Past Medical History - Allergies and Home Meds Allergies/Adverse Reactions: Allergies No Known Allergies Allergy (Verified 06/27/18 18:30) Primary Care Physician: Adina Admas MD [Primary Care Provider] - Surgical History: cholecystectomy, - - section ?3, mitral valve replacement with a bioprosthetic valve at [facility]. RLE AKA. LLE BKA. Smoking Status: Current some day smoker Drugs: - - Hx of IVDU - Family History Maternal Family History: Reports: Cancer - breast CA Paternal Family History: Reports: - - colon CA Review of Systems General: Denies: Chills, Fever, Sweats Eyes: Denies: Visual changes - bilaterally, Diplopia ENT: Reports: Rhinorrhea. Denies: Sore throat Cardiovascular: Reports: Chest pain. Denies: Palpitations, Heart racing Respiratory: Reports: Cough. Denies: Dyspnea, Sputum, Dyspnea on exertion Gastrointestinal: Denies: Abdominal pain, Nausea, Vomiting, Diarrhea, Melena, Hematochezia Genitourinary: Denies: Dysuria, Hematuria, Frequency Musculoskeletal: Denies: Myalgias, Arthralgias, Neck pain, Back pain, Swelling, Extremity Pain Skin: Denies: Rash, Abscess Neurological: Denies: Headache, Weakness, Numbness Physical Exam Vital Signs/Narrative: Vital Signs Temp Pulse Resp BP Pulse Ox 06/27/18 18:30 97.8 F 98 16 108/59 L 98 Inital Vital Signs reviewed: Yes General: Well nourished, Well developed Head: Normocephalic, Atraumatic Eyes: Perrl, EOMI ENT: Moist mucous membranes, No rhinorrhea Neck: Supple, Nontender Cardiovascular: Regular rate, Regular rhythm, No murmurs Respiratory: No distress, CTA bilaterally, Chest nontender Abdomen: Soft, Nontender, Nondistended, Normal bowel sounds Back: Nontender, Normal Inspection Extremities: Nontender, No edema, - - no palpable cords BLE Skin: Normal color, No rash Neurological: Alert, Oriented x3, Cranial nerves II-XII grossly intact, Normal Strength, Normal Sensation Psychological: Normal affect Diagnostic/Tx/Re-eval Impressions Chest X-Ray 06/27/18 20:00 IMPRESSION: No acute disease Electronically Signed: Jon Cosme MD at 21:48 EST , Service support , 06/27/18 20:00 Chest PA and Lateral [RAD] Stat 06/27/18 21:59 CTA Chest W/WO Contrast [CT] Stat Laboratory Results 06/27/18 06/27/18 06/27/18 21:20 21:20 21:20 WBC 5.6 RBC 4.13 L Hgb 11.5 L Hct 35.9 L MCV 86.9 MCH 27.8 MCHC 32.0 RDW 15.8 H RDW Differential 50.5 H Plt Count 138 L MPV 9.6 Immature Gran % (Auto) 0.000 Neut % (Auto) 59.9 Lymph % (Auto) 32.2 Creek % (Auto) 6.8 Eos % (Auto) 0.7 Baso % (Auto) 0.4 Absolute Neuts (auto) 3.3 Absolute Lymphs (auto) 1.79 Total Counted Not Reportable D-Dimer Quant (PE/DVT) 1.25 H* Sodium 137 Potassium 3.7 Chloride 101 Carbon Dioxide 29.0 Anion Gap 7 BUN 13 Creatinine 0.55 Estim Creat Clear Calc 133.87 Est GFR (MDRD) Af Amer 165 Est GFR (MDRD) Non-Af 136 BUN/Creatinine Ratio 23.5 H Glucose 83 Calcium 8.6 Troponin I < 0.015 - Rhythm Strip Rhythm Strip: ventricular pacing and capture Rate: 85 Ectopy: None - EKG Initial EKG Interpretation: Paced Prior: Unchanged - Medical Decision Making CXR unremarkable, labs are ok except for an elevated d-dimer. CTA ordered. Unfortunately, the patient is a very difficult IV stick due to a history of IV drug use. Nurses were able to get a very small IV in her finger. The patient refuses to allow further attempts and does not want the CAT scan in order to rule out pulmonary embolus. We discussed the possibility of a VQ scan, but it is not available after hours tonight. She clinically is symptomatic, but hemodynamically and clinically stable and very comfortable. She prefers to go home. I think this is reasonable, I will give her an injection of Lovenox 1.5 mg/kg, and I think the best course of action in order to get a VQ scan and have it interpreted appropriately is to return to the ER tomorrow during business hours when nuclear medicine is available. If normal or low probability, she may be discharged home on ibuprofen or different NSAID. ED Disposition - Plan for ED Patient: Disposition: Home or Assisted Living Chief Complaint: Chest Other Diagnosis: Pleuritic chest pain, URI with cough and congestion Instructions: Discharge Instructions for Pulmonary Embolism, ED Chest Pain Pleurisy Referrals: Adina Adams MD [Primary Care Provider] - Additional Instructions: Return to the ER tomorrow between the hours of 9 AM and 4 PM. Tell them you were instructed to follow-up in the ER to get a stat VQ scan because of abnormal test that you had during [facility]'s visit and the inability to get the appropriate CT scan.
--- NOTE | 2018-06-27 20:05 | ED.DCSUM_ITS ---
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 no sob. no LE swelling/pains. 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 No history of DVTs or PEs. Takes no anticoagulant. No hemoptysis. No oral contraceptive pills. Pleuritic chest discomfort that she cannot push on and reproduce, is at one specific location without any radiation.. - Past Medical History (1) Hx of bacterial endocarditis Status: Resolved Past Medical History - Allergies and Home Meds Allergies/Adverse Reactions: Allergies No Known Allergies Allergy (Verified 06/27/18 18:30) Primary Care Physician: Adina Adams MD [Primary Care Provider] - Surgical History: cholecystectomy, - - section ?3, mitral valve replacement with a bioprosthetic valve at [facility]. RLE AKA. LLE BKA. Smoking Status: Current some day smoker Drugs: - - Hx of IVDU - Family History Maternal Family History: Reports: Cancer - breast CA Paternal Family History: Reports: - - colon CA Review of Systems General: Denies: Chills, Fever, Sweats Eyes: Denies: Visual changes - bilaterally, Diplopia ENT: Reports: Rhinorrhea. Denies: Sore throat Cardiovascular: Reports: Chest pain. Denies: Palpitations, Heart racing Respiratory: Reports: Cough. Denies: Dyspnea, Sputum, Dyspnea on exertion Gastrointestinal: Denies: Abdominal pain, Nausea, Vomiting, Diarrhea, Melena, Hematochezia Genitourinary: Denies: Dysuria, Hematuria, Frequency Musculoskeletal: Denies: Myalgias, Arthralgias, Neck pain, Back pain, Swelling, Extremity Pain Skin: Denies: Rash, Abscess Neurological: Denies: Headache, Weakness, Numbness Physical Exam Vital Signs/Narrative: Vital Signs Temp Pulse Resp BP Pulse Ox 06/27/18 18:30 97.8 F 98 16 108/59 L 98 Inital Vital Signs reviewed: Yes General: Well nourished, Well developed Head: Normocephalic, Atraumatic Eyes: Perrl, EOMI ENT: Moist mucous membranes, No rhinorrhea Neck: Supple, Nontender Cardiovascular: Regular rate, Regular rhythm, No murmurs Respiratory: No distress, CTA bilaterally, Chest nontender Abdomen: Soft, Nontender, Nondistended, Normal bowel sounds Back: Nontender, Normal Inspection Extremities: Nontender, No edema, - - no palpable cords BLE Skin: Normal color, No rash Neurological: Alert, Oriented x3, Cranial nerves II-XII grossly intact, Normal Strength, Normal Sensation Psychological: Normal affect Diagnostic/Tx/Re-eval Impressions Chest X-Ray 06/27/18 20:00 IMPRESSION: No acute disease Electronically Signed: Jon Cosme MD at 21:48 EST , Service support , 06/27/18 20:00 Chest PA and Lateral [RAD] Stat 06/27/18 21:59 CTA Chest W/WO Contrast [CT] Stat Laboratory Results 06/27/18 06/27/18 06/27/18 21:20 21:20 21:20 WBC 5.6 RBC 4.13 L Hgb 11.5 L Hct 35.9 L MCV 86.9 MCH 27.8 MCHC 32.0 RDW 15.8 H RDW Differential 50.5 H Plt Count 138 L MPV 9.6 Immature Gran % (Auto) 0.000 Neut % (Auto) 59.9 Lymph % (Auto) 32.2 Rains % (Auto) 6.8 Eos % (Auto) 0.7 Baso % (Auto) 0.4 Absolute Neuts (auto) 3.3 Absolute Lymphs (auto) 1.79 Total Counted Not Reportable D-Dimer Quant (PE/DVT) 1.25 H* Sodium 137 Potassium 3.7 Chloride 101 Carbon Dioxide 29.0 Anion Gap 7 BUN 13 Creatinine 0.55 Estim Creat Clear Calc 133.87 Est GFR (MDRD) Af Amer 165 Est GFR (MDRD) Non-Af 136 BUN/Creatinine Ratio 23.5 H Glucose 83 Calcium 8.6 Troponin I < 0.015 - Rhythm Strip Rhythm Strip: ventricular pacing and capture Rate: 85 Ectopy: None - EKG Initial EKG Interpretation: Paced Prior: Unchanged - Medical Decision Making CXR unremarkable, labs are ok except for an elevated d-dimer. CTA ordered. Unfortunately, the patient is a very difficult IV stick due to a history of IV drug use. Nurses were able to get a very small IV in her finger. The patient refuses to allow further attempts and does not want the CAT scan in order to rule out pulmonary embolus. We discussed the possibility of a VQ scan, but it is not available after hours tonight. She clinically is symptomatic, but hemodynamically and clinically stable and very comfortable. She prefers to go home. I think this is reasonable, I will give her an injection of Lovenox 1.5 mg/kg, and I think the best course of action in order to get a VQ scan and have it interpreted appropriately is to return to the ER tomorrow during business hours when nuclear medicine is available. If normal or low probability, she may be discharged home on ibuprofen or different NSAID. ED Disposition - Plan for ED Patient: Disposition: Home or Assisted Living Chief Complaint: Chest Other Diagnosis: Pleuritic chest pain, URI with cough and congestion Instructions: Discharge Instructions for Pulmonary Embolism, ED Chest Pain Armida faith Referrals: Adina Adams MD [Primary Care Provider] - Additional Instructions: Return to the ER tomorrow between the hours of 9 AM and 4 PM. Tell them you were instructed to follow-up in the ER to get a stat VQ scan because of abnormal test that you had during [facility]'s visit and the inability to get the appropriate CT scan.
[2018-06-27] MEDS: Ketorolac 30 MG/ML Syringe IV (20:08)
[2018-06-27 21:30] LABS: Absolute Lymphocyte Count 1.79 X10^3/ul (0.83-4.51); Absolute Neutrophil Count 3.3 X10^3/uL (2.0-7.7); Basophil# 0.02 X10^3/uL; Basophil% 0.4 % (0-1); Eosinophil# 0.04 X10^3/uL; Eosinophils% 0.7 % (0-5); Hematocrit 35.9 % (37-47); Hemoglobin 11.5 g/dl (12.0-15.0); Lymphocyte # 1.79 X10^3/ul (4.0); Lymphocyte % 32.2 % (19-41); Mean Corpuscular Hgb 27.8 pg (27.0-32.0); Mean Corpuscular Volume 86.9 fL (81-99); Mean Platelet Vol. 9.6 fl (6.2-12.0); Monocyte# 0.38 X10^3/uL; Monocyte% 6.8 % (0-10); Neutrophil # 3.33 X10^3/uL (2.7-7.7); Neutrophil % 59.9 % (47-70); POSITIVE COUNT NO; POSITIVE DIFFERENTIAL NO; POSITIVE MORPHOLOGY NO; Platelet Count 138 K/mm3 (150-450); RBC Distribution Width CV 15.8 % (11.6-14.6); RBC Distribution Width SD 50.5 fl (35.1-43.9); Red Blood Count 4.13 M/mm3 (4.2-5.4); White Blood Count 5.6 K/mm3 (4.4-11.0)
[2018-06-27 21:46] LABS: D-Dimer Quantitative (DVT/PE) 1.25 FEU/ug/m (0.27-0.49)
--- NOTE | 2018-06-27 21:47 | ED.RN ---
DR JIMENEZ NOTIFIED OF DDIMER RESULTS
[2018-06-27 21:49] LABS: Anion Gap 7 (5-15); BUN 13 mg/dL (7-18); BUN/Creat Ratio 23.5 RATIO (10-20); Calcium,Total 8.6 mg/dL (8.5-10.1); Chloride 101 mmol/L (98-107); Creatinine, Serum 0.55 mg/dL (0.55-1.02); EST Glomerular Filtration Rate 136 mL/min (>60); Est Glom Filt Rate - Afr Amer 165 mL/min (>60); Estimated Creatinine Clearance 133.87 ml/min; Glucose 83 mg/dL (74-106); Potassium 3.7 mmol/L (3.5-5.1); Sodium Level 137 mmol/L (136-145)
[2018-06-27 21:54] VITALS: BP 97/57; PULSE 80; RESP 14; O2SAT 99
[2018-06-27] MEDS: Enoxaparin 80 MG/0.8 ML Syringe SC (23:02)
[2018-06-27 23:13] VITALS: BP 99/58; PULSE 87; RESP 14; O2SAT 99
== END 2018-06-27 23:14 | disposition home or self-care (01) ==
PROVIDERS: Emergency Provider Emergency Medicine; Family Provider Family Medicine; PCP Family Medicine
DX: R07.81 Pleurodynia (principal); J06.9 Acute upper respiratory infection, unspecified; R05 Cough; F17.200 Nicotine dependence, unspecified, uncomplicated; Z95.2 Presence of prosthetic heart valve; Z90.49 Acquired absence of other specified parts of digestive tract
CPT/HCPCS: 71046; 80048; 84484; 85025; 85379; 93005; 96361; 96372; 96374; 99285; A4216

== ENCOUNTER 2018-07-16 18:11 | Emergency (ER) | payer MEDICAID, SELFPAY ==
[2018-07-16 18:12] VITALS: BP 112/59; PULSE 116; RESP 24; TEMP 39.2; O2SAT 99; BMI 21.4
--- NOTE | 2018-07-16 19:13 | ED.RN ---
RN CALLED FOR EKG, PULLED OLD EKGS FOR
[2018-07-16 19:15] VITALS: BP 102/54; PULSE 115; RESP 20; TEMP 39.1; O2SAT 98
--- NOTE | 2018-07-16 19:32 | ED.RN ---
DR. CUMMINGS INTO ASSESS PATIENT. PATIENT STATES SHE DOES NOT WANT TO BE TREATED. PATIENT STATES SHE DOES NOT WANT FURTHER TESTING. DR. CUMMINGS EXPLAINED RISKS OF LEAVING WITHOUT BEING TREATED PATIENT CONTINUES TO WANT TO LEAVE.
--- NOTE | 2018-07-16 19:49 | ED.VISSUMM ---
- ER Visit Summary Date of Service: 07/16/18 Chief Complaint: Chest pain History of Present Illness: The patient is a 33 F chest pain since yesterday shortness of breath worse with exertion. History of IV drug abuse with endocarditis and blood infections in the past. She has a pacemaker for bradycardia postprocedure. History of PE taken off warfarin this past February. History of lower extremity amputations due to infections. No diabetes history. She is been managed at [facility]. Denies cough, myalgias. Physical Examination: General: Alert and oriented ?4, tearful HEENT: Normocephalic, atraumatic. Moist mucosa membranes Neck: supple, nontender. Cardiovascular: Regular tachycardic rate and rhythm. Respiratory: Normal breath sounds, symmetric, no distress Abdomen: Soft, nontender, nondistended. Abdominal pacemaker with site clean, dry, intact. Extremities: Radial pulses intact. Left lower extremity BKA, right lower extremity AKA. Neuro: no focal neurological deficits. Test Results: EKG paced rate of 106, no acute changes. Emergency Department Course and Treatment: Patient febrile in the ED, tachycardic. Nursing protocol did obtain labs. Discussed immediate with the patient with her history last use of IV drug since yesterday could be bacteremia, she could have endocarditis again, she could have other organ infections. I discussed patient workup with labs cultures broad-spectrum antibiotics and admission due to her history. However during discussion, patient states she did not want to stay in the hospital or have any further testing. Her EKG was tachycardic paced. She is alert and oriented x4, she is capable of making decisions. She understands the risk of limb, organ, and . She signed out AGAINST MEDICAL ADVICE. Treatment Plan: [] Disposition: Signing out AGAINST MEDICAL ADVICE Impression: 1. Acute chest pain 2. Febrile 3. History of IV drug abuse This note was generated with barcoo dictation software. It may contain incorrect words, spelling, and punctuation that were not noted in review of the chart prior to signing ED Disposition - Plan for ED Patient: Disposition: Against Medical Advice Diagnosis: Chest pain, Fever, history of ivda Referrals: Adina Adams MD [Primary Care Provider] - 1 Day Additional Instructions: You are signing out AGAINST MEDICAL ADVICE. You have a fever in the emergency department. You understand with your history of IV drug abuse that you could have a blood infection, heart valve infection again, and risks losing limbs and organs and even . Follow-up with your doctor in 1 day, return at any time for reevaluation and workup for hospitalization.
[2018-07-16 20:05] VITALS: BP 114/95; PULSE 114; RESP 18; O2SAT 98
--- NOTE | 2018-07-16 20:28 | EKG12_ITS ---
Test Reason : Blood Pressure : / mmHG Vent. Rate : 106 BPM Atrial Rate : 106 BPM P-R Int : 152 ms QRS Dur : 146 ms QT Int : 370 ms P-R-T Axes : 049 001 082 degrees QTc Int : 491 ms Atrial-sensed ventricular-paced rhythm Abnormal ECG Confirmed by KESHAWN FREDERICK MD ([id number]), video tape editor LYNDSEY GALLARDO ([id number]) on 07/18/2018 1:57:05 PM Referred By: EMILIANO Confirmed By:KESHAWN FREDERICK MD
--- NOTE | 2018-07-16 20:29 | EKG12_ITS ---
Test Reason : REPEAT Blood Pressure : / mmHG Vent. Rate : 111 BPM Atrial Rate : 111 BPM P-R Int : 124 ms QRS Dur : 140 ms QT Int : 364 ms P-R-T Axes : 070 -05 082 degrees QTc Int : 495 ms Atrial-sensed ventricular-paced rhythm Abnormal ECG Confirmed by OTONIEL DEAN, KESHAWN ([id number]), production editor LYNDSEY GALLARDO ([id number]) on 07/18/2018 1:57:16 PM Referred By: EMILIANO Confirmed By:KESHAWN FREDERICK MD
== END 2018-07-16 20:05 | disposition left against medical advice (07) ==
PROVIDERS: Emergency Provider Emergency Medicine; Family Provider Family Medicine; PCP Family Medicine
DX: R07.9 Chest pain, unspecified (principal); R50.9 Fever, unspecified; Z95.0 Presence of cardiac pacemaker; Z86.711 Personal history of pulmonary embolism; Z89.512 Acquired absence of left leg below knee; Z89.611 Acquired absence of right leg above knee; F19.10 Other psychoactive substance abuse, uncomplicated
CPT/HCPCS: 93005; 99282; A4216

== ENCOUNTER 2018-07-19 16:14 | Inpatient (IN) | payer MEDICAID, SELFPAY ==
[2018-07-19] VITALS (9 sets, daily range): BP systolic 91–109; BP diastolic 43–75; PULSE 75–112; RESP 14–32; TEMP 36.2–36.7; O2SAT 96–100; BMI 21.4
--- NOTE | 2018-07-19 18:43 | EKG12_ITS ---
Test Reason : Blood Pressure : / mmHG Vent. Rate : 095 BPM Atrial Rate : 095 BPM P-R Int : 148 ms QRS Dur : 144 ms QT Int : 412 ms P-R-T Axes : 057 -21 056 degrees QTc Int : 517 ms Atrial-sensed ventricular-paced rhythm Abnormal ECG Confirmed by OTONIEL DEAN, KESHAWN ([id number]), movie editor LYNDSEY GALLARDO ([id number]) on 07/23/2018 10:39:49 AM Referred By: EMILIANO Confirmed By:KESHAWN RFEDERICK MD
--- NOTE | 2018-07-19 19:04 | ED.VISSUMM ---
- ER Visit Summary Date of Service: 07/19/18 Chief Complaint: Fatigue History of Present Illness: The patient is a 33 F returns to the ED for evaluation after sign out AMA 3 days ago. She was seen by myself at that time. 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 States she did use this morning. She had a fever 3 days of 102.5, she reports not feeling feverish. No cough. No urinary symptoms. No vomiting or diarrhea. States she does still have chest pains since being evaluated 3 days ago. History of bilateral lower extremity amputations due to infections from her IV drug use. Does have a pacemaker due to bradycardia. Physical Examination: General: Alert and oriented ?3, no acute distress HEENT: Normocephalic, atraumatic. Moist mucosa membranes Neck: supple, nontender. Cardiovascular: Regular rate and rhythm, no murmurs Respiratory: Normal breath sounds, symmetric, no distress Abdomen: Soft, nontender, nondistended Extremities: Left lower extremity BKA, right lower extremity AKA. Neuro: no focal neurological deficits. Test Results: White count 4.6 platelets 90. Creatinine 0.49. Troponin less than 0.015 lactic acid 0.8. Tox positive for opiates and amphetamines. Influenza negative. Blood culture x3. Chest x-ray negative. UA positive for nitrites leukocytes and white blood cells. Urine cultures pending. Emergency Department Course and Treatment: Patient vitals stable today, however concerns with her 102.5 temp 3 days ago when she signed out AMA. She is an IV drug use. Concern with her fatigue symptoms with her history of bacteremia and endocarditis. Sepsis workup initiated. Flu was negative. Labs stable except noted thrombocytopenia platelets of 90. Tox screen had opiates and amphetamines. Urine positive. She was started on broad-spectrum antibiotics of Zosyn and vancomycin. Chest x-ray negative. EKG notes a paced rhythm. After my evaluation recheck patient proximal October 2044, patient decreased responsiveness had pinpoint pupils. There was a friend in the room prior to this. Concerns that heroin was given through the IV she was given 2 mg of Narcan, she awaken. However cannot started hallucinating. She required Ativan. Vitals stable protecting her airway. Concerns this time with withdrawal symptoms causing her symptoms. Discussed with hospitalist for admission to ICU for monitoring due to withdrawal symptoms. Treatment Plan: [] Disposition: Admission Impression: 1. Heroin abuse with withdrawal 2. History of recent fever 3. IV drug abuse 4. Chest pains 5. UTI 6. Thrombocytopenia This note was generated with [employer] dictation software. It may contain incorrect words, spelling, and punctuation that were not noted in review of the chart prior to signing ED Disposition - Plan for ED Patient: Disposition: Acute Care Hospital [facility] Diagnosis: UTI (urinary tract infection), IV drug abuse, Heroin withdrawal, History of fever, Chest pain, Thrombocytopenia
--- NOTE | 2018-07-19 19:07 | ED.DCSUM_ITS ---
- ER Visit Summary Date of Service: 07/19/18 Chief Complaint: Fatigue History of Present Illness: The patient is a 33 F returns to the ED for evaluation after sign out AMA 3 days ago. She was seen by myself at that time. History of IV drug user with heroin developing endocarditis with tricuspid valve replacement January [address] [facility]. States she did use this morning. She had a fever 3 days of 102.5, she reports not feeling feverish. No cough. No urinary symptoms. No vomiting or diarrhea. States she does still have chest pains since being evaluated 3 days ago. History of bilateral lower extremity amputations due to infections from her IV drug use. Does have a pacemaker due to bradycardia. Physical Examination: General: Alert and oriented ?3, no acute distress HEENT: Normocephalic, atraumatic. Moist mucosa membranes Neck: supple, nontender. Cardiovascular: Regular rate and rhythm, no murmurs Respiratory: Normal breath sounds, symmetric, no distress Abdomen: Soft, nontender, nondistended Extremities: Left lower extremity BKA, right lower extremity AKA. Neuro: no focal neurological deficits. Test Results: White count 4.6 platelets 90. Creatinine 0.49. Troponin less than 0.015 lactic acid 0.8. Tox positive for opiates and amphetamines. Influenza negative. Blood culture x3. Chest x-ray negative. UA positive for nitrites leukocytes and white blood cells. Urine cultures pending. Emergency Department Course and Treatment: Patient vitals stable today, however concerns with her 102.5 temp 3 days ago when she signed out AMA. She is an IV drug use. Concern with her fatigue symptoms with her history of bacteremia and endocarditis. Sepsis workup initiated. Flu was negative. Labs stable except noted thrombocytopenia platelets of 90. Tox screen had opiates and amphetamines . Urine positive. She was started on broad-spectrum antibiotics of Zosyn and vancomycin. Chest x-ray negative. EKG notes a paced rhythm. After my evaluation recheck patient proximal October 2044, patient decreased responsiveness had pinpoint pupils. There was a friend in the room prior to this. Concerns that heroin was given through the IV she was given 2 mg of Narcan, she awaken. However cannot started hallucinating. She required Ativan. Vitals stable protecting her airway. Concerns this time with withdrawal symptoms causing her symptoms. Discussed with hospitalist for admission to ICU for monitoring due to withdrawal symptoms. Treatment Plan: [] Disposition: Admission Impression: 1. Heroin abuse with withdrawal 2. History of recent fever 3. IV drug abuse 4. Chest pains 5. UTI 6. Thrombocytopenia This note was generated with [employer] dictation software. It may contain incorrect words, spelling, and punctuation that were not noted in review of the chart prior to signing ED Disposition - Plan for ED Patient: Disposition: Acute Care Hospital [facility] Diagnosis: UTI (urinary tract infection), IV drug abuse, Heroin withdrawal, History of fever, Chest pain, Thrombocytopenia
[2018-07-19] MEDS: LORazepam 2 MG/ML Syringe 1 MG IV ×2 (19:22→22:01)
[2018-07-19 19:48] LABS: ALB/GLOB Ratio 0.6 RATIO (0.9-2.4); AST(SGOT) 29 U/L (15-37); Alanine Aminotransfer ALT/SGPT 17 U/L (13-56); Albumin, Serum 2.7 g/dL (3.2-5.0); Alkaline Phosphatase 67 U/L (45-117); Anion Gap 8 (5-15); BUN 10 mg/dL (7-18); BUN/Creat Ratio 20.6 RATIO (10-20); Calcium,Total 8.3 mg/dL (8.5-10.1); Chloride 103 mmol/L (98-107); Creatinine, Serum 0.49 mg/dL (0.55-1.02); EST Glomerular Filtration Rate 158 mL/min (>60); Est Glom Filt Rate - Afr Amer 191 mL/min (>60); Estimated Creatinine Clearance 143.65 ml/min; Globulin 4.6 g/dL (2.2-4.2); Glucose 89 mg/dL (74-106); Potassium 4.5 mmol/L (3.5-5.1); Protein, Total 7.3 g/dL (6.4-8.2); Sodium Level 137 mmol/L (136-145)
--- NOTE | 2018-07-19 20:20 | ED.RN ---
LAB IS IN PT'S ROOM ATTEMPTING BLOOD DRAW.
[2018-07-19 20:27] LABS: Absolute Lymphocyte Count 1.74 X10^3/ul (0.83-4.51); Absolute Neutrophil Count 2.3 X10^3/uL (2.0-7.7); Basophil# 0.01 X10^3/uL; Basophil% 0.2 % (0-1); Eosinophil# 0.04 X10^3/uL; Eosinophils% 0.9 % (0-5); Hematocrit 29.6 % (37-47); Hemoglobin 9.8 g/dl (12.0-15.0); Lymphocyte # 1.74 X10^3/ul (4.0); Lymphocyte % 38.2 % (19-41); Mean Corp Hgb Conc 33.1 g/gl (32-36); Mean Corpuscular Hgb 28.5 pg (27.0-32.0); Mean Platelet Vol. 10.4 fl (6.2-12.0); Monocyte# 0.45 X10^3/uL; Monocyte% 9.9 % (0-10); Neutrophil % 50.6 % (47-70); Platelet Count 90 K/mm3 (150-450); RBC Distribution Width CV 15.6 % (11.6-14.6); RBC Distribution Width SD 49.1 fl (35.1-43.9); Red Blood Count 3.44 M/mm3 (4.2-5.4); White Blood Count 4.6 K/mm3 (4.4-11.0)
[2018-07-19 20:29] LABS: POSITIVE COUNT NO; POSITIVE DIFFERENTIAL NO; POSITIVE MORPHOLOGY NO
[2018-07-19 20:41] LABS: Lactic Acid 0.8 mmol/L (0.4-2.0)
[2018-07-19 20:45] LABS: Prothrombin Time (Protime)PT. 13.6 SECONDS (11.7-14.9)
[2018-07-19 20:46] LABS: Partial Thromboplast Time 32.9 Seconds (24.1-36.2)
[2018-07-19] MEDS: Naloxone 2 MG/2 ML Syringe IV (20:55)
--- NOTE | 2018-07-19 21:00 | ED.RN ---
AT 2049 PT WAS FOUND LETHARGIC LYING IN BED WITH PINPOINT PUPILS. DR. CUMMINGS WAS INFORMED. PT PREVIOUSLY HAD A VISITOR TO HER ROOM AND WAS TALKATIVE, ARGUMENTATIVE AT TIMES. PT WAS GIVEN NARCAN AT 2054 AND IMMEDIATELY WOKE UP, STARTED THRASHING AROUND IN BED AND MOANING. A BLANKET WAS GIVEN TO PT AND OPERATIONS TECH AT DOORWAY. PT THEN THREW HERSELF OFF THE END OF THE BED LANDING ON HER CHEST. PT WAS IMMEDIATELY LIFTED UP INTO BED. PT MOANING AND ROLLING AROUND IN THE BED, SUKUMAR SINGH, STEPAN, SVETLANA AND THIS NURSE PRESENT WITH SECURITY SAMANTHA.
--- NOTE | 2018-07-19 21:24 | ED.RN ---
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 PT IS HALLUCINATING AND SEES DOGS IN THE ROOM, OR PEOPLE WALKING DOGS PER SVETLANA YING. PT IS SITTING UP AND THEN PULLING AT EQUIPMENT FOR MARKETING OPERATIONS INTERN.
--- NOTE | 2018-07-19 22:10 | RAD_ITS ---
STUDY: X-RAY CHEST REASON FOR EXAM: Female, 33 years old. Fatigue, decreased appetite, headache and muscle aching. TECHNIQUE: 1 view COMPARISON: Prior chest radiograph of June 27, 2018. FINDINGS: The lung hoover are well expanded without consolidation, focal atelectasis or pleural effusion. There is no demonstrated pleural abnormality. Normal size heart. Status post prior midline sternotomy. External pacemaker unchanged. Normal visualized pulmonary arteries. Normal visualized aortic arch and descending thoracic aorta. Normal visualized thoracic spine. Normal visualized ribs, clavicles, and shoulders. There is no demonstrated abnormality of the visualized soft tissue structures of the upper abdomen. RAD/Chest 1 View (Portable) IMPRESSION: No acute cardiopulmonary findings or changes. Negative for new consolidation, focal atelectasis, pleural effusion or cardiomegaly. Electronically Signed: Mayte Mcguire MD at 22:25 EST , Service support ,
[2018-07-19 22:42] LABS: Color, Urine Yellow (Yellow); Glucose, Dipstick Normal (Normal); Ketone-Dipstick Negative (Negative); Leukocyte Esterase-Dipstick 100 /ul (Negative); Nitrite-Dipstick Positive (Negative); Occult Blood-Urine 25 /ul (Negative); Protein-Dipstick Negative (Negative); Urine Bilirubin Dipstick Negative (Negative); Urine Clarity Cloudy (Clear); Urine Urobilinogen 8 mg/dl (Normal)
[2018-07-19 22:49] LABS: Bacteria 2+ /hpf (None Seen); Mucous, Urine 2+ /hpf (<or=2+); White Blood Cells 10-25 SEEN /hpf (0-5)
[2018-07-19 22:50] LABS: Red Blood Cells-Urine 0-5 SEEN /hpf (0-5); Squamous Epithelial Cells - UA 0-5 SEEN /hpf (5-10)
[2018-07-19 22:51] LABS: Calcium Oxalate Crystals Ur RARE /hpf (<or=2+)
--- NOTE | 2018-07-19 22:54 | HP.PCM_ITS ---
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 History was taken from emergency department because patient was obtunded at the time of my examination. Emergency department doctor reported the patient was alert and communicative at the time of presentation. Patient had an IV inserted by staff at the emergency department. Emergency department doctor reported that later patient became obtunded and it is suspected that a friend who came in might have given the patient's some IV drugs. While at the emergency department patient responded to Narcan but later became obtunded again. Emergency department doctor reported the patient came to emergency department about 3 days ago at that time her temperature was 102.5; she had tachycardia and chest pain. After workup was discussed with patient, she signed out AMA. Patient returned to the emergency department on this new day of admission because her symptoms persisted. Even before patient became obtunded she reported to the emergency department that the last day of her IV heroin was on the same day of admission. She expressed interest in getting help to stop drug use. Blood culture x3 was taken at the emergency department. Influenza screen was negative. Her urinalysis was abnormal. Patient was started on vancomycin and Zosyn. Because patient was obtunded patient was admitted to the intensive care unit. Past Medical History Past Medical History (Chronic Problems): Chronic Problems Hx of mitral valve replacement (Chronic) bioprosthetic valve IV drug abuse (Chronic) IV methamphetamine currently, heroin in the past Allergies No Known Allergies Allergy (Verified 07/19/18 16:18) Home Medications: Ambulatory Orders Medication Instructions Recorded Gabapentin 600 mg PO BID 07/20/18 Gabapentin [Neurontin] 900 mg PO QHS 07/20/18 Surgical History: cholecystectomy, - - section ?3, mitral valve replacement with a bioprosthetic valve at [facility]. NEETU GARCIA. JAX DUNCAN. Smoking Status: Current some day smoker - *Family History Maternal History Items: Cancer - breast CA Paternal History Items: - - colon CA Review of Systems Unable to obtain accurate/complete ROS d/t: obtunded VTE Information - Inpt Only VTE Present on Admission: No VTE Mechan Device Prophylaxis: None VTE Pharm Prophylaxis ordered?: No Reason prophylaxis not ordered:: Treatment Not Indicated - thrombocytopenia Patient Problems: Active and Suspected Problems Acute encephalopathy (Acute) Cystitis (Acute) UTI (urinary tract infection) (Acute) IV drug abuse (Acute) Heroin withdrawal (Acute) History of fever (Acute) Chest pain (Acute) Thrombocytopenia (Acute) - Physical Exam General: - - Obtunded. Grimace and move extremities with sternal rub HEENT: Atraumatic, PERRLA, EOMI, Normocephalic Neck: No JVD, Trachea Midline Lungs: Clear to auscultation Cardiovascular: Regular rate, No murmurs Abdomen: Bowel Sounds Present, Soft Extremities: - - R above the knee amputation. Left below the knee amputation Skin: - - Rashes on left leg Musculoskeletal: No Muscle Wasting Neurological: - - Obtunded. Responds to sternal rub Psych/Mental Status: - - Obtunded Vital Signs Temp Pulse Resp BP Pulse Ox 98.0 F 92 22 H 109/72 100 07/19/18 20:40 07/19/18 22:02 07/19/18 22:02 07/19/18 22:02 07/19/18 22:02 Oxygen Flow Rate (L/min) 2 Oxygen Delivery Method Room Air Weight: 56.699 kg Body Mass Index (BMI) 21.4 Microbiology Past 72 Hours 07/19/18 20:20 Influenza Types A,B Direct FA (ELADIA) - Final Mucosa - Nasopharyngeal Laboratory Tests Past 24 Hrs 07/19/18 07/19/18 07/19/18 19:10 20:03 20:05 WBC 4.6 RBC 3.44 L Hgb 9.8 L Hct 29.6 L MCV 86.0 MCH 28.5 MCHC 33.1 RDW 15.6 H RDW Differential 49.1 H Plt Count 90 L MPV 10.4 Immature Gran % (Auto) 0.200 Neut % (Auto) 50.6 Lymph % (Auto) 38.2 [place] % (Auto) 9.9 Eos % (Auto) 0.9 Baso % (Auto) 0.2 Absolute Neuts (auto) 2.3 Absolute Lymphs (auto) 1.74 Total Counted Not Reportable PT INR APTT Sodium 137 Potassium 4.5 Chloride 103 Carbon Dioxide 26.0 Anion Gap 8 BUN 10 Creatinine 0.49 L Estim Creat Clear Calc 143.65 Est GFR (MDRD) Af Amer 191 Est GFR (MDRD) Non-Af 158 BUN/Creatinine Ratio 20.6 H Glucose 89 Lactic Acid 0.8 Calcium 8.3 L Total Bilirubin 0.70 AST 29 ALT 17 Alkaline Phosphatase 67 Troponin I < 0.015 Total Protein 7.3 Albumin 2.7 L Globulin 4.6 H Albumin/Globulin Ratio 0.6 L Urine Color Urine Clarity Urine pH Ur Specific [place] Urine Protein Urine Glucose (UA) Urine Ketones Urine Occult Blood Urine Nitrite Urine Bilirubin Urine Urobilinogen Ur Leukocyte Esterase Urine RBC Urine WBC Ur Squamous Epith Cells Calcium Oxalate Crystal Urine Bacteria Urine Mucus Urine Opiates Screen Urine Methadone Screen Ur Barbiturates Screen Ur Phencyclidine Scrn Ur Amphetamines Screen U Methamphetamin-MDMA U Benzodiazepines Scrn Urine Cocaine Screen U Cannabinoids Screen Ur Drug Screen Comment 07/19/18 07/19/18 07/19/18 20:05 22:02 22:17 WBC RBC Hgb Hct MCV MCH MCHC RDW RDW Differential Plt Count MPV Immature Gran % (Auto) Neut % (Auto) Lymph % (Auto) [place] % (Auto) Eos % (Auto) Baso % (Auto) Absolute Neuts (auto) Absolute Lymphs (auto) Total Counted PT 13.6 INR 1.0 APTT 32.9 Sodium Potassium Chloride Carbon Dioxide Anion Gap BUN Creatinine Estim Creat Clear Calc Est GFR (MDRD) Af Amer Est GFR (MDRD) Non-Af BUN/Creatinine Ratio Glucose Lactic Acid Calcium Total Bilirubin AST ALT Alkaline Phosphatase Troponin I Total Protein Albumin Globulin Albumin/Globulin Ratio Urine Color Yellow Urine Clarity Cloudy Urine pH 8.0 Ur Specific [place] 1.010 Urine Protein Negative Urine Glucose (UA) Normal Urine Ketones Negative Urine Occult Blood 25 H Urine Nitrite Positive H Urine Bilirubin Negative Urine Urobilinogen 8 H Ur Leukocyte Esterase 100 H Urine RBC 0-5 SEEN Urine WBC 10-25 SEEN Ur Squamous Epith Cells 0-5 SEEN Calcium Oxalate Crystal RARE Urine Bacteria 2+ Urine Mucus 2+ Urine Opiates Screen Pending Urine Methadone Screen Pending Ur Barbiturates Screen Pending Ur Phencyclidine Scrn Pending Ur Amphetamines Screen Pending U Methamphetamin-MDMA Pending U Benzodiazepines Scrn Pending Urine Cocaine Screen Pending U Cannabinoids Screen Pending Ur Drug Screen Comment Assessment/Plan All Active Problems Hx of bacterial endocarditis (Resolved) Hypokalemia (Resolved) Hypotension (Acute) History of left below knee amputation (Acute) History of right above knee amputation (Acute) Acute encephalopathy (Acute) Cystitis (Acute) UTI (urinary tract infection) (Acute) IV drug abuse (Acute) Heroin withdrawal (Acute) History of fever (Acute) Chest pain (Acute) Thrombocytopenia (Acute) UTI (urinary tract infection) (Acute) Patient is a 33 year old F with a significant history of IV drug use; Hepatitis C; 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 Acute encephalopathy suspected to be toxic encephalopathy from IV drug use. Drug urinary screen was positive for opioids and amphetamine. Since patient was able to protect her airways with appropriate oxygen saturation would hold further Narcan administration at this time. Clinical monitoring at intensive care unit. Acute cystitis Patient noted to have abnormal urinalysis with occult blood; urine nitrate; urine urobilinogen; urine leukocyte esterase; urine bacteria but few squamous epithelial cells. Received Zosyn at emergency department. Zosyn continued. Consider de-escalating antibiotics if patient improves. Urine culture and blood cultures are pending. Probable infective endocarditis With a history of infective endocarditis from drug use; recent a temperature of 102.5; fatigue and with history of IV drug use, rule out endocarditis at this time. Blood cultures x3 was started before antibiotics was initiated in the emergency department. Echocardiogram ordered. Acute thrombocytopenia At admission her platelet was 90. Review of old records show that her platelets about 3 weeks ago was 138. And her platelets about 5 months ago was in the normal range. Of note patient has had previous episodes of severely low platelets. Differential diagnosis include ITP; thrombocytopenia secondary to infection. Of note patient has a history of chronic hepatitis C. Trend CBC. Will avoid anticoagulants at this time. Chronic anemia On presentation her hemoglobin was 9.8. Review of records show that her baseline hemoglobin is about 10.5. Differential diagnosis include inflammatory anemia. Trend CBC. DVT prophylaxis SCD. Chemical thromboprophylaxis not initiated because of thrombocytopenia. Code Visit Inpatient E&M: 75664 Init Hosp L3
[2018-07-19 23:09] LABS: Amphetamine Urine VISTA POSITIVE (<1000 ng/mL); Barbiturate Urine VISTA NEGATIVE (< 200 ng/mL); Benzodiazepine Urine VISTA NEGATIVE (< 200 ng/mL); Cocaine Urine VISTA NEGATIVE (< 300 ng/mL); Ecstacy Urine VISTA NEGATIVE (< 500 ng/mL); Methadone Urine VISTA NEGATIVE (< 300 ng/mL); PCP Urine VISTA NEGATIVE (< 25 ng/mL); THC Urine VISTA NEGATIVE (< 50 ng/mL); Vista UDS pH Range 7
[2018-07-20] VITALS (15 sets, daily range): BP systolic 103–115; BP diastolic 49–62; PULSE 67–80; RESP 17–24; TEMP 36.3–36.8; O2SAT 97–100; BMI 17.8
--- NOTE | 2018-07-20 01:10 | ECHOCS_ITS ---
Reason For Study: R/O Endocarditis Procedure This was a 2D Doppler, Color Flow transthoracic echocardiogram. Exam performed portable in ICU/CCU. Left Ventricle Normal size and thickness. The estimated ejection fraction is 65 %. Normal diastology for age. Septal motion consistent with IVCD. No regional wall motion abnormalities noted. Right Ventricle Mildly dilated right ventricle. Normal systolic function. Atria Normal left atrium. Normal right atrium. Normal atrial septum. Mitral Valve Mild diffuse mitral valve thickening. Trivial mitral valve insufficiency. Tricuspid Valve Trivial tricuspid valve insufficiency. Right ventricular systolic pressure estimated to be 11 mmHg. Bioprosthetic tricuspid valve. 1.0 x 0.5 cm spherical mobile density attached to RA side of bioprosthetic tricuspid valve. Cannot exclude endocarditis. Aortic Valve Trisinus/trileaflet aortic valve. Fibrinous mobile strands noted on aortic surface of aortic valve. Pulmonic Valve Normal pulmonic valve. Great Vessels Normal aortic root. Normal arch. Normal inferior vena cava. Inferior vena cava collapse with sniff. Pericardium/Pleural No pericardial effusion. MMode/2D Measurements & Calculations LVIDd: 4.8 cm IVSd: 0.57 cm Ao root diam: 2.6 cm LVIDs: 3.7 cm LVPWd: 0.57 cm RVDd: 3.7 cm FS: 23.3 % LAV(MOD-bp): 22.6 ml LA A4 area: 10.3 cm2 LA dimension(2D): 2.7 cm LAV(MOD-bp) Indexed: 14.1 ml/m2 LAV(MOD-sp2): 27.3 ml LAV(MOD-sp4): 18.2 ml RA A4 area: 14.1 cm2 Doppler Measurements & Calculations MV E max ramón: 92.8 cm/sec Lat Peak E' Ramón: 15.8 cm/sec Med Peak E' Ramón: 6.7 cm/sec MV A max ramón: 93.4 cm/sec E/E' lat: 5.9 E/E' med: 13.8 MV E/A: 0.99 Ao V2 max: 156.9 cm/sec LV V1 max: 129.3 cm/sec TV V2 max: 156.6 cm/sec Ao max P.8 mmHg LV V1 max P.7 mmHg TV max P.8 mmHg TV V2 mean: 119.7 cm/sec TV mean P.1 mmHg PA V2 max: 155.8 cm/sec Interpretation Summary The estimated ejection fraction is 65 %. Mildly dilated right ventricle. Trivial mitral valve insufficiency. Bioprosthetic tricuspid valve. 1.0 x 0.5 cm spherical mobile density attached to RA side of bioprosthetic tricuspid valve. Cannot exclude endocarditis. Right ventricular systolic pressure estimated to be 11 mmHg. Fibrinous mobile strands noted on aortic surface of aortic valve. Compared to SURYA report dated 08/10/2017, LV Function has remained the same and TV mass again noted on today's study, but appears much smaller with minimal TR. No evidence of perivalvular abscess. Ordering Physician: Oz Obrien Referring Physician: Adina Adams Performed By: Ivette Montes RDCS
--- NOTE | 2018-07-20 01:24 | PCM.RX.CS ---
Consult Pharmacy has been consulted to manage selected antiobiotic: Vancomycin Type of Consult: New start Suspected Infection: Other Prior Doses of Antibiotics Received/Current Regimen: Medications Vancomycin HCl 750 mg/ Sodium (Chloride) 265 mls @ 250 mls/hr IV Q8H BOBBY Discontinued Medications Vancomycin HCl 750 mg/ (Dextrose) 265 mls @ 250 mls/hr IV X1 ONE Stop: 07/19/18 20:06 Last Admin: 07/19/18 21:23 Dose: 250 mls/hr Labs: Sodium 137 mmol/L (136-145) 07/19/18 19:10 Potassium 4.5 mmol/L (3.5-5.1) 07/19/18 19:10 Chloride 103 mmol/L (98-107) 07/19/18 19:10 Carbon Dioxide 26.0 mmol/L (21.0-32.0) 07/19/18 19:10 Anion Gap 8 (5-15) 07/19/18 19:10 BUN 10 mg/dL (7-18) 07/19/18 19:10 Creatinine 0.49 mg/dL (0.55-1.02) L 07/19/18 19:10 Est GFR (MDRD) Af Amer 191 mL/min (>60) 07/19/18 19:10 Est GFR (MDRD) Non-Af 158 mL/min (>60) 07/19/18 19:10 BUN/Creatinine Ratio 20.6 RATIO (10-20) H 07/19/18 19:10 Glucose 89 mg/dL (74-106) 07/19/18 19:10 Microbiology: Microbiology 07/19/18 20:20 Mucosa - Nasopharyngeal Influenza Types A,B Direct FA (ELADIA) - Final Weight used for dosin.1 kg Estimated Creatinine Clearance: 144 Goal Trough: 15-20 mcg/mL Pharmacy Plan for Drug Dosing: Pharmacy Service will continue to monitor and adjust dosing as required. Follow-Up Labs: Trough Vancomycin Labs to be done on [date and time ordered]: 07/20/18 @2100
--- NOTE | 2018-07-20 01:56 | NURSING ---
Bob CADET called to come and get drug paraphernalia found in pt's belongings.
[2018-07-20 05:07] LABS: Bedside Glucose 92 mg/dL (70-110)
[2018-07-20 05:16] LABS: Basophil# 0.01 X10^3/uL; Basophil% 0.3 % (0-1); Eosinophil# 0.03 X10^3/uL; Eosinophils% 0.9 % (0-5); Hematocrit 26.6 % (37-47); Hemoglobin 8.7 g/dl (12.0-15.0); Lymphocyte % 31.9 % (19-41); Mean Corp Hgb Conc 32.7 g/gl (32-36); Mean Corpuscular Hgb 29.1 pg (27.0-32.0); Mean Platelet Vol. 10.7 fl (6.2-12.0); Monocyte% 8.7 % (0-10); Neutrophil % 57.9 % (47-70); Platelet Count 92 K/mm3 (150-450); RBC Distribution Width CV 15.3 % (11.6-14.6); RBC Distribution Width SD 48.6 fl (35.1-43.9); Red Blood Count 2.99 M/mm3 (4.2-5.4); White Blood Count 3.5 K/mm3 (4.4-11.0)
[2018-07-20 05:17] LABS: POSITIVE COUNT NO; POSITIVE DIFFERENTIAL NO; POSITIVE MORPHOLOGY NO
[2018-07-20 05:19] LABS: Anion Gap 10 (5-15); BUN 8 mg/dL (7-18); BUN/Creat Ratio 22.6 RATIO (10-20); Calcium,Total 7.8 mg/dL (8.5-10.1); Chloride 106 mmol/L (98-107); Creatinine, Serum 0.35 mg/dL (0.55-1.02); EST Glomerular Filtration Rate 228 mL/min (>60); Est Glom Filt Rate - Afr Amer 276 mL/min (>60); Glucose 89 mg/dL (74-106); Magnesium 2.1 mg/dL (1.6-2.6); Phosphorus 4.8 mg/dL (2.5-4.9); Potassium 3.8 mmol/L (3.5-5.1); Sodium Level 142 mmol/L (136-145)
--- NOTE | 2018-07-20 08:46 | PN_ITS ---
Patient Problems: Active and Suspected Problems Acute encephalopathy (Acute) Cystitis (Acute) UTI (urinary tract infection) (Acute) IV drug abuse (Acute) Heroin withdrawal (Acute) History of fever (Acute) Chest pain (Acute) Thrombocytopenia (Acute) Subjective: Denies any complaints to me. States that she didn't feel well, which is why she came to the hospital. Vitals/I&O's: Vital Signs Temp Pulse Resp BP Pulse Ox 36.8 C 78 20 H 107/54 L 99 07/20/18 05:00 07/20/18 07:29 07/20/18 07:00 07/20/18 07:00 07/20/18 07:00 Oxygen Flow Rate (L/min) 2 Oxygen Delivery Method Room Air Weight: 47.3 kg Body Mass Index (BMI) 17.8 Intake and Output for Last 24 Hours 07/18/18 07/19/18 07/20/18 23:59 23:59 23:59 Intake Total 60 / 60 Balance 60 / 60 General: - - listless. afebrile. no eye contact. HEENT: Atraumatic, Normocephalic Oral: Moist Mucosa, No Gingival or Mucosal Lesions/ Ulcerations Neck: No Nodes, Thyroid Normal Size and Texture Lungs: Clear to auscultation, Normal air movement, No rhonchi, No wheeze Cardiovascular: Regular rate, Regular Rhythm, Normal S1, Normal S2, No murmurs Abdomen: Bowel Sounds Present, Soft, Non Tender, Non-Distended Extremities: - - bilateral stumps without wounds. Skin: - - track curry LUE. no cellulitis. Psych/Mental Status: Flat Affect Microbiology Past 72 Hours 07/19/18 20:20 Mucosa - Nasopharyngeal Influenza Types A,B Direct FA (ELADIA) - Final Laboratory Results 07/19/18 19:10: Sodium 137, Potassium 4.5, Chloride 103, Carbon Dioxide 26.0, Anion Gap 8, BUN 10, Creatinine 0.49 L, Estim Creat Clear Calc 143.65, Est GFR (MDRD) Af Amer 191, Est GFR (MDRD) Non-Af 158, BUN/Creatinine Ratio 20.6 H, Glucose 89, Calcium 8.3 L, Total Bilirubin 0.70, AST 29, ALT 17, Alkaline Phosphatase 67, Troponin I < 0.015, Total Protein 7.3, Albumin 2.7 L, Globulin 4.6 H, Albumin/Globulin Ratio 0.6 L 07/19/18 20:03: Lactic Acid 0.8 07/19/18 20:05: WBC 4.6, RBC 3.44 L, Hgb 9.8 L, Hct 29.6 L, MCV 86.0, MCH 28.5, MCHC 33.1, RDW 15.6 H, RDW Differential 49.1 H, Plt Count 90 L, MPV 10.4, Im mature Gran % (Auto) 0.200, Neut % (Auto) 50.6, Lymph % (Auto) 38.2, [place] % (Auto) 9.9, Eos % (Auto) 0.9, Baso % (Auto) 0.2, Absolute Neuts (auto) 2.3, Absolute Lymphs (auto) 1.74, Total Counted Not Reportable 07/19/18 20:05: PT 13.6, INR 1.0, APTT 32.9 07/19/18 22:02: Urine Opiates Screen POSITIVE H, Urine Methadone Screen NEGATIVE, Ur Barbiturates Screen NEGATIVE, Ur Phencyclidine Scrn NEGATIVE, Ur Amphetamines Screen POSITIVE H, U Methamphetamin-MDMA NEGATIVE, U Benzodiazepines Scrn NEGATIVE, Urine Cocaine Screen NEGATIVE, U Cannabinoids Screen NEGATIVE, Ur Drug Screen Comment 07/19/18 22:17: Urine Color Yellow, Urine Clarity Cloudy, Urine pH 8.0, Ur Specific [place] 1.010, Urine Protein Negative, Urine Glucose (UA) Normal, Urine Ketones Negative, Urine Occult Blood 25 H, Urine Nitrite Positive H, Urine Bilirubin Negative, Urine Urobilinogen 8 H, Ur Leukocyte Esterase 100 H, Urine RBC 0-5 SEEN, Urine WBC 10-25 SEEN, Ur Squamous Epith Cells 0-5 SEEN, Calcium Oxalate Crystal RARE, Urine Bacteria 2+, Urine Mucus 2+ 07/20/18 04:55: WBC 3.5 L, RBC 2.99 L, Hgb 8.7 L, Hct 26.6 L, MCV 89.0, MCH 29.1, MCHC 32.7, RDW 15.3 H, RDW Differential 48.6 H, Plt Count 92 L, MPV 10.7, Immature Gran % (Auto) 0.300, Neut % (Auto) 57.9, Lymph % (Auto) 31.9, [place] % (Auto) 8.7, Eos % (Auto) 0.9, Baso % (Auto) 0.3, Absolute Neuts (auto) 2.0, Absolute Lymphs (auto) 1.10, Total Counted Not Reportable 07/20/18 04:55: Sodium 142, Potassium 3.8, Chloride 106, Carbon Dioxide 26.0, Anion Gap 10, BUN 8, Creatinine 0.35 L, Estim Creat Clear Calc 173.90, Est GFR (MDRD) Af Amer 276, Est GFR (MDRD) Non-Af 228, BUN/Creatinine Ratio 22.6 H, Glucose 89, Calcium 7.8 L, Phosphorus 4.8, Magnesium 2.1 07/20/18 05:02: POC Glucose 92 Current Medications Dicyclomine HCl (Bentyl) 20 mg PO Q6H PRN PRN PRN Reason: Abdomnial Discomfort Hydroxyzine Pamoate (Vistaril Pamoate Capsule) 50 mg PO Q6H PRN PRN PRN Reason: Mild Anxiety Magnesium Hydroxide (Milk Of Magnesia) 30 ml PO DAILY PRN PRN PRN Reason: Constipation Ondansetron HCl (Zofran) 8 mg PO Q8H PRN PRN PRN Reason: nausea vomiting Pramipexole Dihydrochloride (Mirapex) 0.25 mg PO Q12H PRN PRN PRN Reason: Restless Legs Sodium Chloride () 5 - 15 ml IV UD PRN PRN Reason: SALINE FLUSH Medical Necessity - Tobacco Use Smoking Status: Current some day smoker Assessment/Plan All Active Problems Hx of bacterial endocarditis (Resolved) Hypokalemia (Resolved) Hypotension (Acute) History of left below knee amputation (Acute) History of right above knee amputation (Acute) Acute encephalopathy (Acute) Cystitis (Acute) UTI (urinary tract infection) (Acute) IV drug abuse (Acute) Heroin withdrawal (Acute) History of fever (Acute) Chest pain (Acute) Thrombocytopenia (Acute) UTI (urinary tract infection) (Acute) 1. toxic encephalopathy occurred after someone was in her room. Concern that this person injected the patient with a substance. Rx + for opiates and amphetamines improved at this time 2. Malaise had a fever when she presented to the ER on the 4th, but left AMA. No labs done at that time Given her history of endocarditis blood cultures were drawn here and are pending. UA here is not concerning for UTI. Will follow up cultures CXR reviewed and showed no infiltrate. DC antibiotics and monitor. 3. Heroin abuse concern that patient received an illicit substance last night while in the ER I will place her on medications for somatic complaints, but no buprenorphine. I am highly concerned pt will leave AMA (apparently, tried last night), but also diversion. 4. DVT proph: LMWH as pt is non-ambulatory, though s/p bilateral LE amputations. Code Visit Inpatient E&M: 89136 Subs Hosp L2
--- NOTE | 2018-07-20 10:51 | CASEMGMT ---
Pt is leaving [facility]. SW spoke w/pt briefly, she declined any kind of referrals for any substance abuse programs. Pt states she wants nothing from this hospital. SW explained that the programs would be through different agencies, not through the hospital. Pt states the referrals would come through this hospital know and she wants nothing to do with this hospital, she states will go to [place] next time. SW offered to again give pt information, pt declined. Pt states is familiar with [facility]. SW let pt know if she changes her mind, SW is available to speak w/her. EUSEBIA Bro, [employer]
--- NOTE | 2018-07-20 10:52 | NURSING ---
Pt awake and very angry. Arguing loudly with father. 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 Dr. Rubio notified, AMA form reviewed with patient and signed. Pt provided belongings and wheelchair. IV discontinued.
--- NOTE | 2018-07-20 11:10 | NURSING ---
Pt's father requesting phone number for Bob CADET to report patients whereabouts d/t continued drug abuse. Phone number provided.
--- NOTE | 2018-07-20 11:16 | DS.PCM_ITS ---
Discharge Date and Diagnosis - Problem List Patient Problems: Active and Suspected Problems Acute encephalopathy (Acute) Cystitis (Acute) UTI (urinary tract infection) (Acute) IV drug abuse (Acute) Heroin withdrawal (Acute) History of fever (Acute) Chest pain (Acute) Thrombocytopenia (Acute) Date of Admission: 07/19/18 Date of Discharge: 07/20/18 - Primary Discharge Diagnosis Active and Suspected Problems Acute encephalopathy (Acute) Cystitis (Acute) UTI (urinary tract infection) (Acute) IV drug abuse (Acute) Heroin withdrawal (Acute) History of fever (Acute) Chest pain (Acute) Thrombocytopenia (Acute) - Secondary Discharge Diagnosis Chronic Problems Hx of mitral valve replacement (Chronic) bioprosthetic valve IV drug abuse (Chronic) IV methamphetamine currently, heroin in the past Hospital Course and Treatment Imaging Results: Clinical Impression(s) from Imaging Studies Chest X-Ray 07/19/18 22:10 IMPRESSION: No acute cardiopulmonary findings or changes. Negative for new consolidation, focal atelectasis, pleural effusion or cardiomegaly. Electronically Signed: Mayte Mcguire MD at 22:25 EST , Service support , Operations: None Procedures: None Summary of Care Provided: The patient is a 33 year old F presents with not feeling well. Patient was here a few days earlier and had a fever but went home. She went home AGAINST MEDICAL ADVICE. Comes back she states she was not feeling well. Patient underwent workup in the emergency room that was unremarkable, however they are concerned the patient does have a history of endocarditis. While patient was in her room someone at concern was that they administered something in which obtunded. Patient did receive Narcan which did help her somewhat. Patient was admitted to the ICU for further monitoring. Patient had no respiratory compromise. I saw the patient and the patient had been on vancomycin and Zosyn empirically but I saw no signs or symptoms of clinical endocarditis and discontinue antibiotics and just elected to monitor the patient overnight. Today, the patient was requesting med for withdrawal. I intentionally did not prescribe buprenorphine as patient apparently had ingested some illicit substance while she was in the hospital and I was very concerned for a malingering or even diversion of the substances so I did elect to treat her supportively for other somatic complaints without any buprenorphine. Patient was upset with that when she finally did come to even the patient was alert earlier in the morning but declined to speak with me fully. Patient signed herself himself out AGAINST MEDICAL ADVICE. [] Patient Problems: Active and Suspected Problems Acute encephalopathy (Acute) Cystitis (Acute) UTI (urinary tract infection) (Acute) IV drug abuse (Acute) Heroin withdrawal (Acute) History of fever (Acute) Chest pain (Acute) Thrombocytopenia (Acute) - Physical Exam Vital Signs Temp Pulse Resp BP Pulse Ox 36.8 C 80 24 H 113/58 L 99 07/20/18 05:00 07/20/18 08:00 07/20/18 08:00 07/20/18 08:00 07/20/18 08:00 Oxygen Flow Rate (L/min) 2 Oxygen Delivery Method Room Air Weight: 47.3 kg Body Mass Index (BMI) 17.8 Intake and Output for Last 24 Hours 07/18/18 07/19/18 07/20/18 23:59 23:59 23:59 Intake Total 60 / 60 Balance 60 / 60 Microbiology Past 72 Hours 07/19/18 20:20 Influenza Types A,B Direct FA (ELADIA) - Final Mucosa - Nasopharyngeal Laboratory Tests Past 24 Hrs 07/19/18 07/19/18 07/19/18 19:10 20:03 20:05 WBC 4.6 RBC 3.44 L Hgb 9.8 L Hct 29.6 L MCV 86.0 MCH 28.5 MCHC 33.1 RDW 15.6 H RDW Differential 49.1 H Plt Count 90 L MPV 10.4 Immature Gran % (Auto) 0.200 Neut % (Auto) 50.6 Lymph % (Auto) 38.2 [place] % (Auto) 9.9 Eos % (Auto) 0.9 Baso % (Auto) 0.2 Absolute Neuts (auto) 2.3 Absolute Lymphs (auto) 1.74 Total Counted Not Reportable PT INR APTT Sodium 137 Potassium 4.5 Chloride 103 Carbon Dioxide 26.0 Anion Gap 8 BUN 10 Creatinine 0.49 L Estim Creat Clear Calc 143.65 Est GFR (MDRD) Af Amer 191 Est GFR (MDRD) Non-Af 158 BUN/Creatinine Ratio 20.6 H Glucose 89 Lactic Acid 0.8 Calcium 8.3 L Phosphorus Magnesium Total Bilirubin 0.70 AST 29 ALT 17 Alkaline Phosphatase 67 Troponin I < 0.015 Total Protein 7.3 Albumin 2.7 L Globulin 4.6 H Albumin/Globulin Ratio 0.6 L Urine Color Urine Clarity Urine pH Ur Specific [place] Urine Protein Urine Glucose (UA) Urine Ketones Urine Occult Blood Urine Nitrite Urine Bilirubin Urine Urobilinogen Ur Leukocyte Esterase Urine RBC Urine WBC Ur Squamous Epith Cells Calcium Oxalate Crystal Urine Bacteria Urine Mucus Urine Opiates Screen Urine Methadone Screen Ur Barbiturates Screen Ur Phencyclidine Scrn Ur Amphetamines Screen U Methamphetamin-MDMA U Benzodiazepines Scrn Urine Cocaine Screen U Cannabinoids Screen Ur Drug Screen Comment 07/19/18 07/19/18 07/19/18 20:05 22:02 22:17 WBC RBC Hgb Hct MCV MCH MCHC RDW RDW Differential Plt Count MPV Immature Gran % (Auto) Neut % (Auto) Lymph % (Auto) [place] % (Auto) Eos % (Auto) Baso % (Auto) Absolute Neuts (auto) Absolute Lymphs (auto) Total Counted PT 13.6 INR 1.0 APTT 32.9 Sodium Potassium Chloride Carbon Dioxide Anion Gap BUN Creatinine Estim Creat Clear Calc Est GFR (MDRD) Af Amer Est GFR (MDRD) Non-Af BUN/Creatinine Ratio Glucose Lactic Acid Calcium Phosphorus Magnesium Total Bilirubin AST ALT Alkaline Phosphatase Troponin I Total Protein Albumin Globulin Albumin/Globulin Ratio Urine Color Yellow Urine Clarity Cloudy Urine pH 8.0 Ur Specific [place] 1.010 Urine Protein Negative Urine Glucose (UA) Normal Urine Ketones Negative Urine Occult Blood 25 H Urine Nitrite Positive H Urine Bilirubin Negative Urine Urobilinogen 8 H Ur Leukocyte Esterase 100 H Urine RBC 0-5 SEEN Urine WBC 10-25 SEEN Ur Squamous Epith Cells 0-5 SEEN Calcium Oxalate Crystal RARE Urine Bacteria 2+ Urine Mucus 2+ Urine Opiates Screen POSITIVE H Urine Methadone Screen NEGATIVE Ur Barbiturates Screen NEGATIVE Ur Phencyclidine Scrn NEGATIVE Ur Amphetamines Screen POSITIVE H U Methamphetamin-MDMA NEGATIVE U Benzodiazepines Scrn NEGATIVE Urine Cocaine Screen NEGATIVE U Cannabinoids Screen NEGATIVE Ur Drug Screen Comment 07/20/18 07/20/18 04:55 04:55 WBC 3.5 L RBC 2.99 L Hgb 8.7 L Hct 26.6 L MCV 89.0 MCH 29.1 MCHC 32.7 RDW 15.3 H RDW Differential 48.6 H Plt Count 92 L MPV 10.7 Immature Gran % (Auto) 0.300 Neut % (Auto) 57.9 Lymph % (Auto) 31.9 [place] % (Auto) 8.7 Eos % (Auto) 0.9 Baso % (Auto) 0.3 Absolute Neuts (auto) 2.0 Absolute Lymphs (auto) 1.10 Total Counted Not Reportable PT INR APTT Sodium 142 Potassium 3.8 Chloride 106 Carbon Dioxide 26.0 Anion Gap 10 BUN 8 Creatinine 0.35 L Estim Creat Clear Calc 173.90 Est GFR (MDRD) Af Amer 276 Est GFR (MDRD) Non-Af 228 BUN/Creatinine Ratio 22.6 H Glucose 89 Lactic Acid Calcium 7.8 L Phosphorus 4.8 Magnesium 2.1 Total Bilirubin AST ALT Alkaline Phosphatase Troponin I Total Protein Albumin Globulin Albumin/Globulin Ratio Urine Color Urine Clarity Urine pH Ur Specific [place] Urine Protein Urine Glucose (UA) Urine Ketones Urine Occult Blood Urine Nitrite Urine Bilirubin Urine Urobilinogen Ur Leukocyte Esterase Urine RBC Urine WBC Ur Squamous Epith Cells Calcium Oxalate Crystal Urine Bacteria Urine Mucus Urine Opiates Screen Urine Methadone Screen Ur Barbiturates Screen Ur Phencyclidine Scrn Ur Amphetamines Screen U Methamphetamin-MDMA U Benzodiazepines Scrn Urine Cocaine Screen U Cannabinoids Screen Ur Drug Screen Comment POC Glucose 07/20/18 05:02 POC Glucose 92 Discharge Diet: No Restrictions Discharge Activity: Return to Normal Activity Call your doctor if you observe: Fever of 101 or Higher Home Medications: Medications to take at Discharge Gabapentin 600 mg PO BID 07/20/18 Gabapentin [Neurontin] 900 mg PO QHS 07/20/18 Primary Care Physician: Adina Adams MD [Primary Care Provider] - Disposition: Against Medical Advice Minutes spent on discharge:: 28 Patient Condition:: Stable Medical Necessity - Tobacco Use Smoking Status: Current some day smoker Meaningful Use Info Meaningful Use Diagnoses (Choose all that apply): None applicable Code Visit OBSV E&M: 08663 Observation care discharge
== END 2018-07-20 11:35 | disposition left against medical advice (07) | DRG 812 ==
LOC: ED 22:26 → ICU 23:25
PROVIDERS: Admitting Provider Hospitalist; Emergency Provider Emergency Medicine; Family Provider Family Medicine; PCP Family Medicine
DX: T50.904A Poisoning by unspecified drugs, medicaments and biological substances, undetermined, initial encounter (principal); F11.23 Opioid dependence with withdrawal; D69.6 Thrombocytopenia, unspecified; B18.2 Chronic viral hepatitis C; D64.9 Anemia, unspecified; Z95.3 Presence of xenogenic heart valve; Z95.0 Presence of cardiac pacemaker; Z89.512 Acquired absence of left leg below knee; Z89.611 Acquired absence of right leg above knee; F17.200 Nicotine dependence, unspecified, uncomplicated; R07.9 Chest pain, unspecified; N30.90 Cystitis, unspecified without hematuria; G92 Toxic encephalopathy
CPT/HCPCS: 71045; 80048; 80053; 80307; 81001; 82962; 83605; 83735; 84100; 84484; 85025; 85610; 85730; 87040; 87077; 87086; 87088; 87149; 87804; 93005; 93306; 97802; 99282; 99285; 99406; J7030; J7050; A4216; C8929

== ENCOUNTER 2019-07-02 08:00 | Outpatient (RCR) | payer MEDICAID, SELFPAY ==
[2018-07-20 01:11] VITALS: BMI 17.8
--- NOTE | 2019-02-25 14:47 | HP.PTEVAL ---
Patient's Visit Information DAYNA MCNALLY is a 33 year old F referred to Physical Therapy by Adina Madison DO with a diagnosis of Bilateral LE amputation. Date of Evaluation: 02/25/19 Physical Therapist: Boy Molina DPT - Visit Plan Frequency: 2x /Week Duration: 4-6 Weeks Plan: Start with BLE strengthening, hip extension stretching, pre gait activities. COnt. to monitor sking for breakdown/irritation. Progress to FWW as able. - Subjective Findings: Pt. is here today for her initial evaluation with diagnosis of R traumatic lower extremity ambulation. Pt. reports having her BLEs amputated ~ 1 year ago after having blood sepsis. Pt. is now in need of learning ambulation with use of prosethetics. Pt. reports having some pain in distal BLE pain. Pt. reports being fit for prosethetics ~ 2 months ago, but has not really worn them, except for in doctors office and in parallel bars. Pt. reports not wearing any supply requirements officer wraps at home. She has plenty of socks at home for increased ply for fitting. Pt. is hopeful to get back to walking in community wihtuot limitations. - Pain L distal residual limb Pain Intensity (Out of 10): 2 Pain Intensity Range: 1, 4 R distal residual limb Pain Intensity (Out of 10): 2 Pain Intensity Range: 1, 4 - Objective POSTURE: Pt. is able to demonstrate good posture in sitting. Pt. did not have prosthetics with her this date, unable to test standing. PALPATION: normal sensation througout. Mild distal LE pain, but not wound issues. NEURO: Normal. MMT:LLE- knee- ext 5-/5, flexion 5-/5; hip- flexion 4+/5, abd 4/5, ext 4+/5. RLE: jhip- flexion 4/5, abd 4/5, ext 4/5. Core strength- fair. GAIT; did not assess this date due to not having prosthetics this date - Goals Goal 1:: Pt. to be I with HEP. Goal Time Frame: 4-6 Weeks Goal 2:: Pt. to have increased BLE strength by 1/2 grade throughout BLEs. 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 Goal Time Frame: 4-6 Weeks Goal 4:: Pt. to wear her prosthetics upto 2 hours without any skin irritations. Goal Time Frame: 4-6 Weeks Goal 5:: Pt. to walk with FWW upto 150' JACKY without LOB. Goal Time Frame: 4-6 Weeks Goal 6:: Pt. to don and doff B prosthesis I. Goal Time Frame: 4-6 Weeks - Rehabilitation Potential Physical Therapy Diagnosis: Pt. presents with B LE amputation, R above knee and L below knee. Pt. has subsequent weakness and difficulty walking. Pt. would benefit from PT initial to work on BLE strengthening, pre gait activties, priogressing with gait as tolerated. Rehabilitation Potential: Excellent - Anticipated Interventions Patient/Client Instruction: Educate patient on: Condition, Plan of Care, Risk Factors, Benefits of Fitness Program For the Purpose of:: To improve decision making, To facilitate caregiver knowledge, To improve self management, To prevent re-injury, To improve ability to perform tasks related to life management, To improve tolerance to ADL's Therapeutic Exercise to Include: Strength training, Endurance training, Balance training, Postural training, Flexibilty training, Gait and locomotor training For the Purpose of:: To improve nutrient delivery to tissue, To increase oxygenation perfusion, To improve muscle performance and motor function, To improve ability to perform ADL's, To increase tolerance to activity/condition/position, To improve gait and locomotor functions, To improve health of tissue, To increase flexibility/ROM, To improve endurance, To improve balance Thank you for the opportunity to evaluate your patient. For Medicare and Medicare HMO plans, please review the plan of care and approve it. It will need to be FAXED BACK to us at [phone] for Medicare purposes. For Medicare only, by signing this I certify the plan of care. Please let me know if there are questions or concerns regarding this plan of care. Physician Signature: Date:
--- NOTE | 2019-05-31 12:01 | HP.PTEVAL_ITS ---
Patient's Visit Information DAYNA MCNALLY is a 33 year old F referred to Physical Therapy by Adina Madison DO with a diagnosis of Bilateral LE amputation. Date of Evaluation: 02/25/19 Physical Therapist: Boy Molina DPT - Visit Plan Frequency: 2x /Week Duration: 4-6 Weeks Plan: Cont. with POC. Focus on patient education on casino assistant manager wearing, stretching alloqwing for increased tolerance to donning prothesis. Progress walking wtih walker as able. - Subjective Findings: Pt. is here today for her initial evaluation with diagnosis of R traumatic lower extremity ambulation. Pt. reports having her BLEs amputated ~ 1 year ago after having blood sepsis. Pt. is now in need of learning ambulation with use of prosethetics. Pt. reports having some pain in distal BLE pain. Pt. reports being fit for prosethetics ~ 2 months ago, but has not really worn them, except for in doctors office and in parallel bars. Pt. reports not wearing any casino assistant manager wraps at home. She has plenty of socks at home for increased ply for f itting. Pt. is hopeful to get back to walking in community wihtuot limitations. - Pain L distal residual limb Pain Intensity (Out of 10): 1 Pain Intensity Range: 1, 4 Comment: mostly with attempting to get up and walk. R distal residual limb Pain Intensity (Out of 10): 1 Pain Intensity Range: 1, 4 - Objective POSTURE: Pt. is able to demonstrate good posture in sitting. Pt. did not have prosthetics with her this date, unable to test standing. PALPATION: normal sensation througout. Mild distal LE pain, but not wound issues. NEURO: Normal. MMT:LLE- knee- ext 5-/5, flexion 5-/5; hip- flexion 4+/5, abd 4/5, ext 4+/5. RLE: jhip- flexion 4/5, abd 4/5, ext 4/5. Core strength- fair. GAIT; did not assess this date due to not having prosthetics this date - Goals Goal 1:: Pt. to be I with HEP. Goal Time Frame: 4-6 Weeks Goal 2:: Pt. to have increased BLE strength by 1/2 grade throughout BLEs. Goal Time Frame: 4-6 Weeks Goal 3:: Pt. to housing inspector parallel bars upto 5' without pain without skin irritation. Goal Time Frame: 4-6 Weeks Goal 4:: Pt. to wear her prosthetics upto 2 hours without any skin irritations. Goal Time Frame: 4-6 Weeks Goal 5:: Pt. to walk with FWW upto 150' JACKY without LOB. Goal Time Frame: 4-6 Weeks Goal 6:: Pt. to don and doff B prosthesis I. Goal Time Frame: 4-6 Weeks - Rehabilitation Potential Physical Therapy Diagnosis: Pt. presents with B LE amputation, R above knee and L below knee. Pt. has subsequent weakness and difficulty walking. Pt. would benefit from PT initial to work on BLE strengthening, pre gait activties, priogressing with gait as tolerated. Rehabilitation Potential: Excellent - Anticipated Interventions Patient/Client Instruction: Educate patient on: Condition, Plan of Care, Risk Factors, Benefits of Fitness Program For the Purpose of:: To improve decision making, To facilitate caregiver knowledge, To improve self management, To prevent re-injury, To improve ability to perform tasks related to life management, To improve tolerance to ADL's Therapeutic Exercise to Include: Strength training, Endurance training, Balance training, Postural training, Flexibilty training, Gait and locomotor training For the Purpose of:: To improve nutrient delivery to tissue, To increase oxygenation perfusion, To improve muscle performance and motor function, To improve ability to perform ADL's, To increase tolerance to activity/condition/position, To improve gait and locomotor functions, To improve health of tissue, To increase flexibility/ROM, To improve endurance, To improve balance Thank you for the opportunity to evaluate your patient. For Medicare and Medicare HMO plans, please review the plan of care and approve it. It will need to be FAXED BACK to us at [phone] for Medicare purposes. For Medicare only, by signing this I certify the plan of care. Please let me know if there are questions or concerns regarding this plan of care. Physician Signature: Date:
--- NOTE | 2019-06-18 10:49 | HP.PTREVAL_ITS ---
Adina Madison, DO, It has been my pleasure to treat DAYNA Sierra ARMS over the last 14 visits for Bilateral LE amputation. Please see the progress note below for an update on the physical therapy plan of care! Subjective: Pt. arrives today in WC with both prothesis. Pt. reports wearing her shrinkers several times, but not every day. Pt. also reports not wearing her prothesis at all since last visit. Pt. reports doing some light exercises, but only occassionally. No pain reported pre treatment this date. Objective/Function: Pt. continues to have difficulty getting a great fit with her prothesis. Pt. reports increased L knee pressure during L stance phase, but improved tolerance with R WBing. Still is difficult to get her prothesis on, especially with her RLE. I urged patient to continue with wearing her shrinkers and taking her diuretic as directed. Pt. is to wear prosthetics at home to increase wearing time. Pt. consents to above goals. Plan Plan: Cont. with POC. Focus on patient education on molecular biology director wearing, stretching alloqwing for increased tolerance to donning prothesis. Progress walking wtih walker as able. Goals Goal 1:: Pt. to be I with HEP. Goal Time Frame: 4-6 Weeks Goal Progress: Progressing Goal 2:: Pt. to have increased BLE strength by 1/2 grade throughout BLEs. Goal Time Frame: 4-6 Weeks Goal Progress: Progressing Goal 3:: Pt. to estate planning counselor parallel bars upto 5' without pain without skin irritation. Goal Time Frame: 4-6 Weeks Goal Progress: Progressing Goal 4:: Pt. to wear her prosthetics upto 2 hours without any skin irritations. Goal Time Frame: 4-6 Weeks Goal Progress: Not Progressing Goal 5:: Pt. to walk with FWW upto 150' JACKY without LOB. Goal Time Frame: 4-6 Weeks Goal Progress: Progressing Goal 6:: Pt. to don and doff B prosthesis I. Goal Time Frame: 4-6 Weeks Goal Progress: Progressing Anticipated Interventions Patient/Client Instruction: Educate patient on: Condition, Plan of Care, Risk Factors, Benefits of Fitness Program For the Purpose of:: To improve decision making, To facilitate caregiver knowledge, To improve self management, To prevent re-injury, To improve ability to perform tasks related to life management, To improve tolerance to ADL's Therapeutic Exercise to Include: Strength training, Endurance training, Balance training, Postural training, Flexibilty training, Gait and locomotor training For the Purpose of:: To improve nutrient delivery to tissue, To increase oxygenation perfusion, To improve muscle performance and motor function, To improve ability to perform ADL's, To increase tolerance to activity/condition/position, To improve gait and locomotor functions, To improve health of tissue, To increase flexibility/ROM, To improve endurance, To improve balance Please do not hesitate to contact me at [phone] by phone or if you have questions or concerns regarding this new plan of care! Sincerely, MARCI ArenasT
--- NOTE | 2019-09-03 12:41 | HP.PT.NRP ---
DAYNA MCNALLY was seen in my office for initial evaluation on 02/25/19. The following Plan of Care was established for this patient: Initial Frequency: 2x /Week Initial Duration: 4-6 Weeks Patient/Client Instruction: Educate patient on: Condition, Plan of Care, Risk Factors, Benefits of Fitness Program For the Purpose of:: To improve decision making, To facilitate caregiver knowledge, To improve self management, To prevent re-injury, To improve ability to perform tasks related to life management, To improve tolerance to ADL's Therapeutic Exercise to Include: Strength training, Endurance training, Balance training, Postural training, Flexibilty training, Gait and locomotor training For the Purpose of:: To improve nutrient delivery to tissue, To increase oxygenation perfusion, To improve muscle performance and motor function, To improve ability to perform ADL's, To increase tolerance to activity/condition/position, To improve gait and locomotor functions, To improve health of tissue, To increase flexibility/ROM, To improve endurance, To improve balance This patient was last seen in our office 07/02/19. Pertinent comments regarding their Physical therapy will appear below: Pt. was seen in physical therapy for her co amputation of her LEs. Focus was on gait, strengthening, transfer training. Pt. had difficulty with fitting of her prosthesis, due to issues with edema mangement. Pt. has not been seen in several weeks and will be DC from Pt at this point in time. At this point I will be discontinuing this patient from physical therapy. I would be happy to see this patient again in the future if found appropriate by the physician. Thank you! Boy Molina, MARCIT
== END 2019-07-02 19:00 | disposition home or self-care (01) ==
LOC: PT 08:00
PROVIDERS: Family Provider Family Medicine; PCP Family Medicine; Referring Provider Family Medicine; Visit Provider Family Medicine
DX: S88.911D Complete traumatic amputation of right lower leg, level unspecified, subsequent encounter (principal)
CPT/HCPCS: 97110; 97116; 97161; 97530

== ENCOUNTER 2021-01-23 08:39 | Emergency (ER) | payer MEDICAID, SELFPAY ==
[2018-07-20 01:11] VITALS: BMI 17.8
[2021-01-23 08:41] VITALS: BP 137/81; PULSE 82; RESP 22; TEMP 36.9; O2SAT 98; BMI 23.5
--- NOTE | 2021-01-23 08:51 | ED.RN ---
pt reports feeling shaky and not right. pain all over
--- NOTE | 2021-01-23 09:11 | EX.ED.DYSGE1 ---
HPI History of Present Illness Chief Complaint: General Illness Informant: patient Narrative Narrative: Patient is a 35-year-old female who presents to the emergency department after taking Suboxone. She states that she used heroin last night. She feels like she put herself into withdrawal. Since using the Suboxone she has been feeling shaky, hot and cold flashes, short of breath. She states that she last used heroin in 2019 and then she was feeling very stressed out so she used heroin last night. She snorted it. She has used Suboxone before in the past. Patient does not want to go through a detox program. She does not follow with any counselor as an outpatient. 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 [facility] Medical History (Updated 01/23/21 @ 09:[address] Oz Samson DO) Heroin abuse History of leg amputation Pacemaker Umbilical hernia Home Medications NK 01/23/21 [History Last Taken Unknown] Allergy/AdvReac Type Severity Reaction Status Date / Time No Known Allergies Allergy Verified 01/23/21 08:44 Surgical History (Updated 01/23/21 @ 08:49 by Deb Chowdhury) S/P tricuspid valve replacement Social History Smoking Status: Never smoker ROS ROS ED Constitutional Constitutional ED: Reports chills and subjective ENT ENT ED: Denies rhinorrhea Cardiovascular Cardiovascular: Denies chest pain Respiratory/Chest Respiratory/Chest: Reports dyspnea; Denies cough or sputum Gastrointestinal Gastrointestinal: Reports nausea; Denies abdominal pain, diarrhea or vomiting Musculoskeletal Musculoskeletal: Reports myalgias Integumentary Denies rash Neurologic Neurologic: Denies headache(s), paresthesias or weakness Psychiatric Psychiatric: Reports anxiety EXAM Physical Exam Const Vital Signs: 01/23/21 08:41 01/23/21 08:48 01/23/21 09:16 Temperature 98.4 F Temperature Source Oral Pulse Rate 82 91 Respiratory Rate 22 H 16 Respiratory Effort Normal Respiratory Pattern Normal Blood Pressure 137/81 H 134/78 H Blood Pressure Mean 99 Pulse Ox 98 99 Oxygen Delivery Method Room Air Positive well nourished and well developed General Appearance ED: well developed and NAD HEENT Reports normocephalic, head/scalp atraumatic and moist mucous membranes Eyes PERRL and EOMs intact bilaterally Neck supple General: Negative for tenderness Chest Wall inspection of chest normal Resp normal respiratory effort and clear to auscultation bilaterally Auscultation: Negative for rales, rhonchi or wheezes Cardio regular rate, regular rhythm and no murmurs GI Palpation: soft; Negative for guarding or rebound tenderness present Extremity Extremity Narrative: Bilateral lower leg amputations. Neuro no sensory deficits noted Sensorium / Orientation: alert Motor Exam: strength 5/5 throughout Psych Mood & Affect: anxious Skin no rashes or lesions noted MDM MDM MDM Narrative Medical decision making narrative: Patient presents to the ED for withdrawal symptoms from opiates. She used heroin last night and ended up using Suboxone today. Since then she has been feeling very poor and anxious. On arrival to the ED vital signs within normal limits. She has a benign physical exam. I discussed with her is not much we can do for the withdrawal symptoms and the Suboxone will just have to take its time to get out of her system. I did offer to admit her into the detox program and this is what she wanted but she is declining. Patient states that she does feel like she is going to go back home and use. I did offer her outpatient resources as well but patient is declining this as well. Patient offered to stay in the emergency department for monitoring and basic lab work but she is refusing this as well and wants to be discharged at this time. She can return to the emergency department anytime to help detox if she chooses. She otherwise is to follow-up with her PCP. Return precautions are reviewed with her. She understands and is agreeable with this plan. All questions are answered. Discharge Plan Triage Chief Complaint: General Illness ED Provider: Oz Samson Dx/Rx/DC Orders Clinical Impression: Substance use disorder, Heroin withdrawal Instructions: ED Opioid Withdrawal Prescriptions: No Action NK RF: 0 Primary Care Provider: Adina Madison Referrals: Adina Madison DO [Primary Care Provider] - As soon as possible Disposition Disposition: Home, Self Care Discharge Date/Time: 01/23/21 09:18
[2021-01-23 09:16] VITALS: BP 134/78; PULSE 91; RESP 16; O2SAT 99
--- NOTE | 2021-01-23 09:17 | ED.RN ---
THIS NURSE REVIEWED D/C INSTRUCTIONS WITH PT. PT VERBALIZED UNDERSTANDING OF INSTRUCTIONS. IV D/C. IV CATHETER INTACT. PT TOLERATED WELL. PT ASSISTED TO VEHICLE VIA W/C
== END 2021-01-23 09:18 | disposition home or self-care (01) ==
LOC: ED 09:14
PROVIDERS: Emergency Provider Emergency Medicine; PCP Family Medicine
DX: F11.23 Opioid dependence with withdrawal (principal); Z89.512 Acquired absence of left leg below knee; Z89.511 Acquired absence of right leg below knee; Z95.0 Presence of cardiac pacemaker
CPT/HCPCS: 99284; A4216

== ENCOUNTER 2022-04-02 16:46 | Inpatient (IN) | payer MEDICAID, SELFPAY ==
[2022-04-02 16:47] VITALS: BP 101/51; PULSE 86; RESP 16; TEMP 36.9; O2SAT 95; BMI 24.9
--- NOTE | 2022-04-02 17:19 | EKG12_ITS ---
Test Reason : GENERAL ILLNESS Blood Pressure : / mmHG Vent. Rate : 072 BPM Atrial Rate : 071 BPM P-R Int : 000 ms QRS Dur : 168 ms QT Int : 492 ms P-R-T Axes : 000 225 061 degrees QTc Int : 538 ms Ventricular-paced rhythm Abnormal ECG Confirmed by DOROTEO DEAN, CURRY ([id number]), web content editor SAMREEN MAYORGA ([id number]) on 04/05/2022 1:33:07 PM Referred By: FINA Confirmed By:CURRY SADLER MD
--- NOTE | 2022-04-02 17:19 | CT_ITS ---
STUDY: CT ABDOMEN AND PELVIS WITHOUT CONTRAST REASON FOR EXAM: Female, 36 years old. ascites, pain RADIATION DOSAGE (If Supplied By Facility): CTDIvol = ( 14.41 ) mGy, DLP = ( 810.30 ) mGycm TECHNIQUE: Transaxial images were obtained from the dome of the diaphragm to the symphysis pubis without oral contrast, and without intravenous contrast. Sagittal and coronal images were reconstructed. Individualized dose optimization techniques were used for this CT. COMPARISON: None. FINDINGS: Small bilateral pleural effusions and bibasilar atelectasis.. The visualized portions of the heart are within normal limits. Normal liver. . Gallbladder not clearly visualized possibly due to prior excision. Normal spleen. Normal pancreas. Normal bilateral adrenal glands. Normal right kidney. Normal left kidney. There is massive ascites within the abdomen and pelvis displacing the bowel Normal visualized stomach. Normal small intestine. Normal colon. The appendix is visualized and appears normal. Normal abdominal aorta. Normal inferior vena cava. Normal retroperitoneum. Normal urinary bladder. Large umbilical hernia containing fat and ascites Diffuse mesenteric edema and edematous changes within the subcutaneous fat.. Multiple small bilateral inguinal nodes likely benign. Normal osseous structures. CT/Abdomen/Pelvis without Cont IMPRESSION: . Small bilateral pleural effusions and massive ascites with diffuse mesenteric edema and edema in the subcutaneous fat consistent with nonspecific anasarca Electronically Signed: Dannie De La Torre MD at 18:20 EDT ,
[2022-04-02] MEDS: 0.9% Normal Saline 1,000 ML 1000 ML IV (17:34)
--- NOTE | 2022-04-02 17:39 | EDS_ITS ---
HPI History of Present Illness Chief Complaint: General Illness Informant: patient and family Narrative Narrative: Patient presents via EMS from home mother is currently present. Reports increasing abdominal distention over the past week. History of similar she is required paracentesis in the past however states that was 2 years ago. Unclear which hospital perform this procedure was not done here. Extensive medical history. She states she has a umbilical hernia as been enlarged for a while. Denies any pain there. Extensive previous IV drug history with endocarditis and bacteremia causing sepsis with lower extremity amputations. This was over 4 years ago. Reviewing records have seen her back in 2019 with his history. She had initial valve repair 4 years ago states it was a revision done March of last year at [facility]. Follow-up with cardiology 1 time after her procedure and has not followed up since. Reports only medication would be metoprolol as needed. Also states she followed up with hepatology at . She denies any cirrhosis history. She has been evaluated, she did not continue to follow-up there. She denies any fevers. Reports has not ate or drank anything in 1 week. Denies nausea or vomiting. Denies diarrhea. Prior similar symptoms: Yes PFSH PFS Medical History Heroin abuse History of leg amputation Pacemaker Umbilical hernia Home Medications NK 01/23/21 [History Last Taken Unknown] Allergy/AdvReac Type Severity Reaction Status Date / Time No Known Allergies Allergy Verified 04/02/22 16:51 Surgical History S/P tricuspid valve replacement Social History Smoking Status: Former smoker ROS ROS ED Constitutional Constitutional ED: Denies chills, fever(s) or sweats Eyes Eyes: Denies change in vision ENT ENT ED: Denies dysphagia or sore throat Cardiovascular Cardiovascular: Denies chest pain, leg edema, palpitations or racing heartbeat Respiratory/Chest Respiratory/Chest: Denies cough, dyspnea or dyspnea on exertion Gastrointestinal Gastrointestinal: Reports other Details: Abdominal distention ; Denies diarrhea, nausea or vomiting Genitourinary Genitourinary ED: Denies dysuria, hematuria or urinary frequency Musculoskeletal Musculoskeletal: Denies back pain, extremity pain or neck pain Integumentary Denies rash or wounds Neurologic Neurologic: Denies headache(s), paresthesias or weakness EXAM Physical Exam Const Vital Signs: 04/02/22 16:47 04/02/22 16:53 Temperature 98.4 F Temperature Source Temporal Pulse Rate 86 Respiratory Rate 16 Respiratory Pattern Normal Blood Pressure 101/51 L Blood Pressure Mean 67 Pulse Ox 95 Oxygen Delivery Method Room Air Positive well nourished and well developed General Appearance ED: well developed and NAD HEENT Reports dry mucous membranes normocephalic and atraumatic Mouth ED: Yes dry mucous membranes Mouth: dry mucous membranes Eyes PERRL, EOMs intact bilaterally and conjunctivae normal General Eye ED: Yes normal appearance of both eyes Neck no lymphadenopathy and supple General: Negative for tenderness Chest Wall Chest: Negative for tenderness Resp normal respiratory effort and normal air movement Effort and Inspection: symmetric chest movement; Negative for respiratory distress Cardio regular rate, regular rhythm and no murmurs Peripheral Pulses: pulses 2+ throughout GI normal to inspection, nondistended, normoactive bowel sounds GI Narrative: Distended abdomen large umbilical hernia that tracks to the right lower quadrant, no rebound or guarding. Inspection: abdominal distention Palpation: Negative for guarding or rebound tenderness present Back/Spine no CVA tenderness and no thoracic nor lumbar tenderness Extremity Extremity Narrative: Bilateral lower extremity amputations. 1-2+ swelling noted. General Extremety ED: Yes edema; Negative for tenderness General Extremity: edema Neuro oriented x3 and no sensory deficits noted Sensorium / Orientation: awake and alert Skin no wounds Skin Narrative: Redness noted on right thigh and upper leg, not warmth and blanches therefore lower concerns for cellulitis. MDM MDM MDM Narrative Medical decision making narrative: Patient vital signs stable. Afebrile. Nontoxic. Exam with distended abdomen large nontender umbilical hernia. Dry mucosal membranes. Will give IV fluids we will check abdominal labs. Cultures will be sent with her history of bacteremia. CT scan noncontrast obtained for further evaluation. EKG paced rhythm with no acute findings. CT scan notes massive ascites. Abdominal labs normal white count normal creatinine. Sodium 128 elevated liver enzymes. Lipase normal. Urine had nitrites and leukocytes however she is asymptomatic culture sent. INR 1.4. Tox screen positive for amphetamines and ecstasy she denies taking any drugs at home per mother been in her room sleeping for the last week. Patient afebrile white count is normal. Significant medical history due to IV drug use appears to be clinically managed currently. New symptoms of ascites with distention that is recurrent. Reported 2 years ago was at told was secondary to her cardiac history not cirrhosis. I did speak with on-call GI Dr. Rylan, discussed her history findings, with current ascites and GI symptoms continue. For managed for plan likely paracentesis on Monday. Hepatitis panel was sent and pending. I discussed with hospitalist Dr. Caba for admission to [facility] here. Of note from 2018 she left AMA twice once in the ED and 1 from the floor, she stated she was willing to stay for treatment. Lab Data Attestation: I reviewed the patient's lab results. Labs: Laboratory Results - last 24 hr 04/02/22 04/02/22 04/02/22 17:35 17:35 17:35 WBC 7.2 RBC 4.67 Hgb 12.8 Hct 38.7 MCV 82.9 MCH 27.4 MCHC 33.1 RDW Std Deviation 46.3 H RDW Coeff of Natalie 15.4 H Plt Count 150 MPV 11.6 Immature Gran % (Auto) 2.200 H Neut % (Auto) 85.4 H Lymph % (Auto) 5.5 L [place] % (Auto) 5.7 Eos % (Auto) 0.4 Baso % (Auto) 0.8 Absolute Neuts (auto) 6.2 Absolute Lymphs (auto) 0.40 L Nucleated RBC % 0 Differential Comment SEE COMMENT Platelet Estimate ADEQUATE RBC Morphology N CHROM Anisocytosis RARE PT 16.3 H INR 1.4 APTT 35.4 Sodium 128 L Potassium 4.5 Chloride 96 L Carbon Dioxide 23.0 Anion Gap 9 BUN 26 H Creatinine 0.81 Estim Creat Clear Calc 84.51 Est GFR (MDRD) Af Amer 103 Est GFR (MDRD) Non-Af 85 BUN/Creatinine Ratio 31.9 H Glucose 89 Calcium 8.6 Phosphorus Magnesium Total Bilirubin 3.30 H Direct Bilirubin 2.61 H AST 121 H ALT 130 H Alkaline Phosphatase 74 Total Protein 5.8 L Albumin 1.8 L Globulin 4.0 Lipase 52 L Serum , Qual Urine Color Urine Clarity Urine pH Ur Specific [place] Urine Protein Urine Glucose (UA) Urine Ketones Urine Occult Blood Urine Nitrite Urine Bilirubin Urine Urobilinogen Ur Leukocyte Esterase Urine RBC Urine WBC Ur Squamous Epith Cells Urine Bacteria Urine Mucus Urine Opiates Screen Urine Methadone Screen Ur Barbiturates Screen Ur Phencyclidine Scrn Ur Amphetamines Screen MDMA (Ecstasy) Screen U Benzodiazepines Scrn Urine Cocaine Screen U Cannabinoids Screen Ur Drug Screen Comment 04/02/22 04/02/22 04/02/22 17:35 17:35 18:05 WBC RBC Hgb Hct MCV MCH MCHC RDW Std Deviation RDW Coeff of Natalie Plt Count MPV Immature Gran % (Auto) Neut % (Auto) Lymph % (Auto) [place] % (Auto) Eos % (Auto) Baso % (Auto) Absolute Neuts (auto) Absolute Lymphs (auto) Nucleated RBC % Differential Comment Platelet Estimate RBC Morphology Anisocytosis PT INR APTT Sodium Potassium Chloride Carbon Dioxide Anion Gap BUN Creatinine Estim Creat Clear Calc Est GFR (MDRD) Af Amer Est GFR (MDRD) Non-Af BUN/Creatinine Ratio Glucose Calcium Phosphorus 3.2 Magnesium 2.1 Total Bilirubin Direct Bilirubin AST ALT Alkaline Phosphatase Total Protein Albumin Globulin Lipase Serum , Qual NEGATIVE Urine Color [place] Urine Clarity Clear Urine pH 6.0 Ur Specific [place] 1.020 Urine Protein 30 H Urine Glucose (UA) Normal Urine Ketones 5 H Urine Occult Blood 10 H Urine Nitrite Positive H Urine Bilirubin 3 H Urine Urobilinogen 12 H Ur Leukocyte Esterase 100 H Urine RBC 0-5 SEEN Urine WBC 5-10 SEEN Ur Squamous Epith Cells 5-10 SEEN Urine Bacteria 3+ Urine Mucus 2+ Urine Opiates Screen Urine Methadone Screen Ur Barbiturates Screen Ur Phencyclidine Scrn Ur Amphetamines Screen MDMA (Ecstasy) Screen U Benzodiazepines Scrn Urine Cocaine Screen U Cannabinoids Screen Ur Drug Screen Comment 04/02/22 18:05 WBC RBC Hgb Hct MCV MCH MCHC RDW Std Deviation RDW Coeff of Natalie Plt Count MPV Immature Gran % (Auto) Neut % (Auto) Lymph % (Auto) [place] % (Auto) Eos % (Auto) Baso % (Auto) Absolute Neuts (auto) Absolute Lymphs (auto) Nucleated RBC % Differential Comment Platelet Estimate RBC Morphology Anisocytosis PT INR APTT Sodium Potassium Chloride Carbon Dioxide Anion Gap BUN Creatinine Estim Creat Clear Calc Est GFR (MDRD) Af Amer Est GFR (MDRD) Non-Af BUN/Creatinine Ratio Glucose Calcium Phosphorus Magnesium Total Bilirubin Direct Bilirubin AST ALT Alkaline Phosphatase Total Protein Albumin Globulin Lipase Serum , Qual Urine Color Urine Clarity Urine pH Ur Specific [place] Urine Protein Urine Glucose (UA) Urine Ketones Urine Occult Blood Urine Nitrite Urine Bilirubin Urine Urobilinogen Ur Leukocyte Esterase Urine RBC Urine WBC Ur Squamous Epith Cells Urine Bacteria Urine Mucus Urine Opiates Screen NEGATIVE Urine Methadone Screen NEGATIVE Ur Barbiturates Screen NEGATIVE Ur Phencyclidine Scrn NEGATIVE Ur Amphetamines Screen POSITIVE H MDMA (Ecstasy) Screen POSITIVE H U Benzodiazepines Scrn NEGATIVE Urine Cocaine Screen NEGATIVE U Cannabinoids Screen NEGATIVE Ur Drug Screen Comment Radiography Diagnostic Testing: Clinical Impression(s) from Imaging Studies Abdomen/Pelvis CT 04/02/22 17:19 IMPRESSION: . Small bilateral pleural effusions and massive ascites with diffuse mesenteric edema and edema in the subcutaneous fat consistent with nonspecific anasarca Electronically Signed: Dannie De La Torre MD at 18:20 EDT , EKG Initial EKG: Attestation: I personally reviewed and interpreted this EKG as follows: Comments: Paced rhythm rate of 72, no acute changes. Discharge Plan Dx/Rx/DC Orders Clinical Impression: Abdominal ascites, History of left below knee amputation, History of right above knee amputation, Hx of mitral valve replacement, Hepatitis, Acute hyponatremia Disposition Disposition: Acute Care [facility] Discharge Date/Time: 04/02/22 20:19
[2022-04-02 17:45] LABS: Absolute Neutrophil Count 6.2 X10^3/uL (2.0-7.7); Basophil# 0.06 X10^3/uL; Basophil% 0.8 % (0-1); Eosinophil# 0.03 X10^3/uL; Eosinophils% 0.4 % (0-5); Hematocrit 38.7 % (37-47); Hemoglobin 12.8 g/dL (12.0-15.0); Lymphocyte % 5.5 % (19-41); Mean Corp Hgb Conc 33.1 g/dL (32-36); Mean Corpuscular Hgb 27.4 pg (27.0-32.0); Mean Corpuscular Volume 82.9 fL (81-99); Mean Platelet Vol. 11.6 fl (6.2-12.0); Monocyte# 0.41 X10^3/uL; Monocyte% 5.7 % (0-10); NRBC Flagged by Analyzer 0 % (0-5); Neutrophil # 6.16 X10^3/uL (2.7-7.7); Neutrophil % 85.4 % (47-70); POSITIVE DIFFERENTIAL YES; POSITIVE MORPHOLOGY YES; Platelet Count 150 K/mm3 (150-450); RBC Distribution Width CV 15.4 % (11.6-14.6); RBC Distribution Width SD 46.3 fl (35.1-43.9); Red Blood Count 4.67 M/mm3 (4.2-5.4); White Blood Count 7.2 K/mm3 (4.4-11.0)
[2022-04-02 17:51] LABS: Differential Indicated SCAN CRITERIA MET
[2022-04-02 17:54] LABS: International Normalized Ratio 1.4; Prothrombin Time (Protime)PT. 16.3 SECONDS (11.7-14.9)
[2022-04-02 17:55] LABS: Partial Thromboplast Time 35.4 Seconds (24.1-36.2)
[2022-04-02 18:03] LABS: AST(SGOT) 121 U/L (15-37); Alanine Aminotransfer ALT/SGPT 130 U/L (13-56); Albumin, Serum 1.8 g/dL (3.2-5.0); Alkaline Phosphatase 74 U/L (45-117); Anion Gap 9 (5-15); BUN 26 mg/dL (7-18); BUN/Creat Ratio 31.9 RATIO (10-20); Bilirubin, Direct 2.61 mg/dL (0.00-0.30); Calcium,Total 8.6 mg/dL (8.5-10.1); Chloride 96 mmol/L (98-107); Creatinine, Serum 0.81 mg/dL (0.55-1.02); EST Glomerular Filtration Rate 85 mL/min (>60); Est Glom Filt Rate - Afr Amer 103 mL/min (>60); Estimated Creatinine Clearance 84.51 ml/min; Glucose 89 mg/dL (74-106); Lipase 52 U/L (73-393); Potassium 4.5 mmol/L (3.5-5.1); Protein, Total 5.8 g/dL (6.4-8.2); Sodium Level 128 mmol/L (136-145)
[2022-04-02 18:17] LABS: Anisocytosis RARE; Platelet Estimate ADEQUATE (ADEQ); Red Cell Morphology N CHROM NORMAL (NORM C&C)
[2022-04-02 18:21] LABS: Color, Urine Amber (Yellow); Glucose, Dipstick Normal (Normal); Ketone-Dipstick 5 mg/dl (Negative); Leukocyte Esterase-Dipstick 100 /ul (Negative); Nitrite-Dipstick Positive (Negative); Occult Blood-Urine 10 /ul (Negative); Protein-Dipstick 30 mg/dl (Negative); Urine Clarity Clear (Clear); Urine Urobilinogen 12 mg/dl (Normal)
[2022-04-02 18:25] LABS: Urine Bilirubin Dipstick 3 mg/dL (Negative)
[2022-04-02 18:29] LABS: Red Blood Cells-Urine 0-5 SEEN /hpf (0-5); White Blood Cells 5-10 SEEN /hpf (0-5)
[2022-04-02 18:30] LABS: Bacteria 3+ /hpf (None Seen); Mucous, Urine 2+ /hpf (<or=2+); Squamous Epithelial Cells - UA 5-10 SEEN /hpf (5-10)
[2022-04-02 18:40] LABS: Amphetamine Urine VISTA POSITIVE (<1000 ng/mL); Barbiturate Urine VISTA NEGATIVE (< 200 ng/mL); Benzodiazepine Urine VISTA NEGATIVE (< 200 ng/mL); Cocaine Urine VISTA NEGATIVE (< 300 ng/mL); Ecstacy Urine VISTA POSITIVE (< 500 ng/mL); Methadone Urine VISTA NEGATIVE (< 300 ng/mL); PCP Urine VISTA NEGATIVE (< 25 ng/mL); THC Urine VISTA NEGATIVE (< 50 ng/mL); Vista UDS pH Range 6
[2022-04-02 18:56] LABS: Internal QC Validated? YES +Cl - CLEAR BKGD; Pregnancy, Serum, hCG Quali. NEGATIVE Negative
--- NOTE | 2022-04-02 19:30 | HP.PCM.HOS_ITS ---
[facility] - General General Date of Admission: 04/02/22 Date of Service: 04/02/22 Chief Complaint: Abdominal pain, not eating or drinking for 1 week. Large ascites. HPI Narrative DAYAN MCNALLY, is a 36 F with history of chronic opioid use disorder, states quit about 2 3 years ago came to ED accompanied with her mother for not eating drinking for 7 days. Patient also complaining of severe abdominal pain cramping and dehydrated. She denies nausea or vomiting. Her last bowel movement was today but she does not know details of it. She said she might had while she was sleeping. She also does not know the details of her urine color frequency or urgency. She denies burning micturition. In ED, she is crying and very emotional. Abdominal pain is cramping in nature and intermittent comes in waves. She has large chronic umbilical hernia which is not reducible for long time. CT abdomen and pelvis was done in ED which shows large umbilical hernia without bowel but fluid and fat. ER physician talked to Dr. Fagan and he will see on Monday. U tox is positive of amphetamine and ecstasy but he denies any substance use. Her mother and patient was very defensive when asked about substance use history by ER physician. Patient denies history of cirrhosis and he states it has been checked in the past and was negative. Denies fever or chills, URI symptoms, chest pain or pressure. Past surgical history cholecystectomy, , mitral valve replacement with bioprosthetic valve [facility], bilateral above-knee amputation. Family history: Patient has paternal history of colon cancer and maternal history of breast cancer as from previous record. [facility] Medical History Heroin abuse History of leg amputation Pacemaker Umbilical hernia Home Medications NK 01/23/21 [History Last Taken Unknown] Allergy/AdvReac Type Severity Reaction Status Date / Time No Known Allergies Allergy Verified 04/02/22 16:51 Surgical History S/P tricuspid valve replacement Social History Smoking Status: Never smoker ROS ROS Narrative Detailed 14 ROS is unobtainable as patient is in distress crying for abdominal pain. Constitutional: Reports fatigue and weakness. Dehydrated HEENT: Reports systems reviewed and no addt'l complaints, except as documented Respiratory/Chest: Denies chest pain, shortness of breath at rest Gastrointestinal: Denies coffee ground emesis, hematemesis or vomiting. Rest abdominal pain as described in HPI Genitourinary: Denies burning urination. Musculoskeletal: Bilateral above-knee amputee Neurologic: Denies seizure-like activity. Details could not be obtained skin: No ulcer. Redness. Endocrinology: Details could not be obtained. Hematologic/Lymphatic: Pancytopenia reports systems reviewed and no addt'l complaints, except as documented Rest 14 ROS are negative except as mentioned in HPI Vital Signs Vital Signs Vital Signs: 04/02/22 16:47 04/02/22 16:53 Temperature 98.4 F Temperature Source Temporal Pulse Rate 86 Respiratory Rate 16 Respiratory Pattern Normal Blood Pressure 101/51 L Blood Pressure Mean 67 Pulse Ox 95 Oxygen Delivery Method Room Air Weight Weight: 145 lb 4.554 oz Body Mass Index (BMI) 24.9 Physical Exam Narrative Physical exam General: Awake, lethargy, oriented x3, Cooperative HEENT: Atraumatic, PERRLA, EOMI, Normocephalic Oral: Oral mucosa dry. No Gingival or Mucosal Lesions/ Ulcerations Neck: Supple, No JVD, Negative Carotid Bruits Lungs: Air entry diminished in bilateral lung bases. No crepitation/rhonchi Cardiovascular: Pacemaker. Open heart surgery scar. Normal S1, Normal S2, LLSB artificial valve sound. Abdomen: Distended abdomen with ascites. Large umbilical hernia and reducible. Bowel sounds sluggish. Soft, no rigidity : No renal angle tenderness. No suprapubic tenderness. Extremities: Mild edema of left stump. Edema, Capillary Refill Less than 3 Seconds Skin: Mild redness of right thigh and buttock region as per nurse but no tenderness/induration or cellulitis. Musculoskeletal: Bilateral above-knee amputee. ROM severely restricted. No ulcer on the stump. Neurological: Cranial nerves II-XII grossly intact, DTR 2+/4 Psych/Mental Status: Crying, emotional. Results Lab / Micro Data Result Diagrams: 04/02/22 17:35 04/02/22 17:35 Labs: Laboratory Results - last 24 hr 04/02/22 17:35: WBC 7.2, RBC 4.67, Hgb 12.8, Hct 38.7, MCV 82.9, MCH 27.4, MCHC 33.1, RDW Std Deviation 46.3 H, RDW Coeff of Natalie 15.4 H, Plt Count 150, MPV 11.6, Immature Gran % (Auto) 2.200 H, Neut % (Auto) 85.4 H, Lymph % (Auto) 5.5 L , Mower % (Auto) 5.7, Eos % (Auto) 0.4, Baso % (Auto) 0.8, Absolute Neuts (auto) 6.2, Absolute Lymphs (auto) 0.40 L, Nucleated RBC % 0, Differential Comment SEE COMMENT, Platelet Estimate ADEQUATE, RBC Morphology N CHROM, Anisocytosis RARE 04/02/22 17:35: PT 16.3 H, INR 1.4, APTT 35.4 04/02/22 17:35: Sodium 128 L, Potassium 4.5, Chloride 96 L, Carbon Dioxide 23.0, Anion Gap 9, BUN 26 H, Creatinine 0.81, Estim Creat Clear Calc 84.51, Est GFR (MDRD) Af Amer 103, Est GFR (MDRD) Non-Af 85, BUN/Creatinine Ratio 31.9 H, Glucose 89, Calcium 8.6, Total Bilirubin 3.30 H, Direct Bilirubin 2.61 H, AST 121 H, ALT 130 H, Alkaline Phosphatase 74, Total Protein 5.8 L, Albumin 1.8 L, Globulin 4.0, Lipase 52 L 04/02/22 17:35: Serum , Qual NEGATIVE 04/02/22 18:05: Urine Color Mira, Urine Clarity Clear, Urine pH 6.0, Ur Specific [place] 1.020, Urine Protein 30 H, Urine Glucose (UA) Normal, Urine Ketones 5 H, Urine Occult Blood 10 H, Urine Nitrite Positive H, Urine Bilirubin 3 H, Urine Urobilinogen 12 H, Ur Leukocyte Esterase 100 H, Urine RBC 0-5 SEEN, Urine WBC 5-10 SEEN, Ur Squamous Epith Cells 5-10 SEEN, Urine Bacteria 3+, Urine Mucus 2+ 04/02/22 18:05: Urine Opiates Screen NEGATIVE, Urine Methadone Screen NEGATIVE, Ur Barbiturates Screen NEGATIVE, Ur Phencyclidine Scrn NEGATIVE, Ur Amphetamines Screen POSITIVE H, MDMA (Ecstasy) Screen POSITIVE H, U Benzodiazepines Scrn NEGATIVE, Urine Cocaine Screen NEGATIVE, U Cannabinoids Screen NEGATIVE, Ur Drug Screen Comment Micro: Microbiology 04/02/22 17:27 Nasal Secretion SARS-CoV-2 Antigen (Rapid) - Final Radiology Impression Abdomen/Pelvis CT 04/02/22 17:19 IMPRESSION: . Small bilateral pleural effusions and massive ascites with diffuse mesenteric edema and edema in the subcutaneous fat consistent with nonspecific anasarca Electronically Signed: Dannie De La Torre MD at 18:20 EDT , Assessment & Plan Assessment/Plan (1) Hyponatremia: (2) Ascites: PLAN: Plan This 36-year-old female with history of polysubstance use predominantly opioid use disorder is admitted with dehydration with severe ascites and abdominal cramps 1. Abdominal cramps, exact etiology unclear probably due to severe ascites: CT abdomen individually reviewed shows severe ascites with mesenteric edema and edema subcutaneous fat. Large umbilical hernia but does not have bowel content. Will need paracentesis. Patient had a paracentesis in the past about 2 years ago. She has not followed any doctor recently. Patient had 1 L in ED. Ordered slow IV fluid at 50 mill per hour for hydration. Monitor intake and output. Patient had bowel movement in the morning and CT reported normal small intestine and colon. Tylenol for pain control. For severe pain buprenorphine sublingual ordered. 2. Abnormal liver chemistry, exact etiology.: Liver chemistry shows low albumin 1.8, elevated transaminases, T bili 3.3 mainly direct bilirubin 2.6, alkaline phosphatase normal.Fairly prior cholecystectomy. Normal liver, spleen and pancreas reported. ED physician talked to Dr. Fagan and he will see the patient. 3. Hypotonic hypovolemic hyponatremia and hypochloremia: Patient sodium is 128, chloride 96 probably from dehydration. BUN 26, creatinine normal. BUN/creatinine ratio 31.9%. On IV fluid normal saline. 3. 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 Patient was last admitted in 07/2018 for acute encephalopathy and fever but he signed AMA. At that time blood culture grew strep mitis/oralis not strep pneumoniae. U tox positive of amphetamines and ecstasy but patient and her mother states he is not using illicit drugs or [id number] or prescribed antidepressant or antipsychotic medication. 4. Possible asymptomatic bacteriuria: Patient denies burning micturition. She gets agitated and crying and does not answer alert and oriented symptoms incl uding frequency urgency states he does not know. UA shows nitrite positive, LE 100, WBC 5-10 cells, squamous epithelial 5-10 cells. Bacteria 3+. Urine culture ordered. If patient spikes fever will need antibiotic coverage otherwise I do not think indication of empiric antibiotic. Patient does not have leukocytosis. Neutrophil 85%, lymphocyte 5%. Platelet count 150,001 low normal. 5. VT prophylaxis, low risk: PT and OT ordered Full code Total time of the visit including total time spent in counseling or coordination of care, (more than 50% of the total time, spent in obtaining medical information from nurses and other ancillary care providers,explaining to the patient about labs, imaging, diagnosis and management of active complex medical conditions), review of previous admission and medical record, review of labs and imaging is 40 minutes. Microbiology Past 72 Hours 04/02/22 17:27 Nasal Secretion SARS-CoV-2 Antigen (Rapid) - Final Laboratory Results 04/02/22 17:35: WBC 7.2, RBC 4.67, Hgb 12.8, Hct 38.7, MCV 82.9, MCH 27.4, MCHC 33.1, RDW Std Deviation 46.3 H, RDW Coeff of Natalie 15.4 H, Plt Count 150, MPV 11.6, Immature Gran % (Auto) 2.200 H, Neut % (Auto) 85.4 H, Lymph % (Auto) 5.5 L , Mower % (Auto) 5.7, Eos % (Auto) 0.4, Baso % (Auto) 0.8, Absolute Neuts (auto) 6.2, Absolute Lymphs (auto) 0.40 L, Nucleated RBC % 0, Differential Comment SEE COMMENT, Platelet Estimate ADEQUATE, RBC Morphology N CHROM, Anisocytosis RARE 04/02/22 17:35: PT 16.3 H, INR 1.4, APTT 35.4 04/02/22 17:35: Sodium 128 L, Potassium 4.5, Chloride 96 L, Carbon Dioxide 23.0, Anion Gap 9, BUN 26 H, Creatinine 0.81, Estim Creat Clear Calc 84.51, Est GFR (MDRD) Af Amer 103, Est GFR (MDRD) Non-Af 85, BUN/Creatinine Ratio 31.9 H, Glucose 89, Calcium 8.6, Total Bilirubin 3.30 H, Direct Bilirubin 2.61 H, AST 121 H, ALT 130 H, Alkaline Phosphatase 74, Total Protein 5.8 L, Albumin 1.8 L, Globulin 4.0, Lipase 52 L 04/02/22 17:35: Serum , Qual NEGATIVE 04/02/22 17:35: Phosphorus 3.2, Magnesium 2.1 04/02/22 18:05: Urine Color Mira, Urine Clarity Clear, Urine pH 6.0, Ur Specific [place] 1.020, Urine Protein 30 H, Urine Glucose (UA) Normal, Urine Ketones 5 H, Urine Occult Blood 10 H, Urine Nitrite Positive H, Urine Bilirubin 3 H, Urine Urobilinogen 12 H, Ur Leukocyte Esterase 100 H, Urine RBC 0-5 SEEN, Urine WBC 5-10 SEEN, Ur Squamous Epith Cells 5-10 SEEN, Urine Bacteria 3+, Urine Mucus 2+ 04/02/22 18:05: Urine Opiates Screen NEGATIVE, Urine Methadone Screen NEGATIVE, Ur Barbiturates Screen NEGATIVE, Ur Phencyclidine Scrn NEGATIVE, Ur Amphetamines Screen POSITIVE H, MDMA (Ecstasy) Screen POSITIVE H, U Benzodiazepines Scrn NEGATIVE, Urine Cocaine Screen NEGATIVE, U Cannabinoids Screen NEGATIVE, Ur Drug Screen Comment 04/02/22 19:30: Hepatitis A IgM Ab Pending, Hep Bs Antigen Pending, Hep B Core IgM Ab Pending, Hepatitis C Ab (EIA) Pending Clinical Impression(s) from Imaging Studies Abdomen/Pelvis CT 04/02/22 17:19 IMPRESSION: . Small bilateral pleural effusions and massive ascites with diffuse mesenteric edema and edema in the subcutaneous fat consistent with nonspecific anasarca Charges/Coding Visit Charges Inpatient E&M: 94763 Init Hosp L3
[2022-04-02 19:34] VITALS: BP 129/62; PULSE 61; RESP 15; O2SAT 98
[2022-04-02 19:53] LABS: Magnesium 2.1 mg/dL (1.6-2.6); Phosphorus 3.2 mg/dL (2.5-4.9)
[2022-04-02 20:18] VITALS: BP 129/62; PULSE 61; RESP 15; TEMP 36.9; O2SAT 98
[2022-04-02 20:20] VITALS: BMI 28.0
[2022-04-02 20:25] VITALS: BP 107/52; PULSE 61; RESP 20; TEMP 36.8; O2SAT 94
[2022-04-02] MEDS: 0.9% Normal Saline 1,000 ML 50 ML IV (20:54)
[2022-04-02] MEDS: 0.9% Saline Lock 10 ML Syringe IV (20:54)
[2022-04-02] MEDS: Acetaminophen 325 MG Tablet 650 MG PO (20:57)
[2022-04-02 21:08] VITALS: BP 107/52; PULSE 61; RESP 20; TEMP 36.8; O2SAT 94
[2022-04-02 22:00] VITALS: PULSE 64
[2022-04-03] VITALS (11 sets, daily range): BP systolic 90–100; BP diastolic 46–50; PULSE 60–63; RESP 14–18; TEMP 36.3–36.9; O2SAT 95–98
[2022-04-03] MEDS: Acetaminophen 325 MG Tablet 650 MG PO (06:46)
[2022-04-03 07:04] LABS: Absolute Lymphocyte Count 0.63 X10^3/uL (0.83-4.51); Absolute Neutrophil Count 7.3 X10^3/uL (2.0-7.7); Basophil# 0.02 X10^3/uL; Basophil% 0.2 % (0-1); Eosinophil# 0.08 X10^3/uL; Eosinophils% 0.9 % (0-5); Hemoglobin 11.8 g/dL (12.0-15.0); Lymphocyte # 0.63 X10^3/ul (0.83-4.51); Lymphocyte % 7.2 % (19-41); Mean Corp Hgb Conc 31.9 g/dL (32-36); Mean Corpuscular Hgb 27.4 pg (27.0-32.0); Mean Corpuscular Volume 85.8 fL (81-99); Monocyte% 6.9 % (0-10); NRBC Flagged by Analyzer 0.2 % (0-5); Neutrophil # 7.29 X10^3/uL (2.7-7.7); Neutrophil % 83.9 % (47-70); POSITIVE MORPHOLOGY YES; Platelet Count 148 K/mm3 (150-450); RBC Distribution Width CV 15.3 % (11.6-14.6); RBC Distribution Width SD 47.8 fl (35.1-43.9); Red Blood Count 4.31 M/mm3 (4.2-5.4); White Blood Count 8.7 K/mm3 (4.4-11.0)
[2022-04-03 07:06] LABS: Differential Indicated SCAN CRITERIA MET
[2022-04-03 08:28] LABS: Differential Comment SCANNED
[2022-04-03] MEDS: Ondansetron 4 MG/2 ML Vial IV (09:22)
[2022-04-03] MEDS: 0.9% Saline Lock 10 ML Syringe IV (09:23)
[2022-04-03] MEDS: Buprenorphine HCl 2 MG TAB.SUBL SL ×2 (09:47→20:50)
[2022-04-03] MEDS: Menthol/Lanolin/Calamine/Znox 113 GM Tube 1 APPLIC TOPICAL ×2 (09:49→20:52)
--- NOTE | 2022-04-03 13:19 | PN.HOSP_ITS ---
Subjective Subjective Patient seen and examined. She was moaning in pain. She said the pain was generalised. She admitted to abdominal pain. She dnied any fever, chills, nausea, vomiting or diarrhea. Review of systems is otherwise negative. Objective Data Objective Data Vital Signs: Vital Signs Temp Pulse Resp BP Pulse Ox O2 Del Method O2 Flow Rate 97.4 F L 61 16 100/50 L 98 Nasal Cannula 2 04/03/22 09:32 04/03/22 10:00 04/03/22 09:32 04/03/22 09:32 04/03/22 09:32 04/03/22 09:32 04/03/22 09:32 Oxygen Flow Rate (L/min) 2 Oxygen Delivery Method Nasal Cannula Weight: 150 lb 8.012 oz Body Mass Index (BMI) 28.0 Intake & Output: Intake and Output for Last 24 Hours 04/01/22 04/02/22 04/03/22 23:59 23:59 23:59 Intake Total 1000 / 1000 Balance 1000 / 1000 Lab / Micro Data Result Diagrams: 04/03/22 06:56 04/02/22 17:35 Labs: Laboratory Results - last 24 hr 04/02/22 17:35: WBC 7.2, RBC 4.67, Hgb 12.8, Hct 38.7, MCV 82.9, MCH 27.4, MCHC 33.1, RDW Std Deviation 46.3 H, RDW Coeff of Natalie 15.4 H, Plt Count 150, MPV 11.6, Immature Gran % (Auto) 2.200 H, Neut % (Auto) 85.4 H, Lymph % (Auto) 5.5 L , Gilliam % (Auto) 5.7, Eos % (Auto) 0.4, Baso % (Auto) 0.8, Absolute Neuts (auto) 6.2, Absolute Lymphs (auto) 0.40 L, Nucleated RBC % 0, Differential Comment SEE COMMENT, Platelet Estimate ADEQUATE, RBC Morphology N CHROM, Anisocytosis RARE 04/02/22 17:35: PT 16.3 H, INR 1.4, APTT 35.4 04/02/22 17:35: Sodium 128 L, Potassium 4.5, Chloride 96 L, Carbon Dioxide 23.0, Anion Gap 9, BUN 26 H, Creatinine 0.81, Estim Creat Clear Calc 84.51, Est GFR (MDRD) Af Amer 103, Est GFR (MDRD) Non-Af 85, BUN/Creatinine Ratio 31.9 H, Glucose 89, Calcium 8.6, Total Bilirubin 3.30 H, Direct Bilirubin 2.61 H, AST 121 H, ALT 130 H, Alkaline Phosphatase 74, Total Protein 5.8 L, Albumin 1.8 L, Globulin 4.0, Lipase 52 L 04/02/22 17:35: Serum , Qual NEGATIVE 04/02/22 17:35: Phosphorus 3.2, Magnesium 2.1 04/02/22 18:05: Urine Color Mira, Urine Clarity Clear, Urine pH 6.0, Ur Specific [place] 1.020, Urine Protein 30 H, Urine Glucose (UA) Normal, Urine Ketones 5 H, Urine Occult Blood 10 H, Urine Nitrite Positive H, Urine Bilirubin 3 H, Urine Urobilinogen 12 H, Ur Leukocyte Esterase 100 H, Urine RBC 0-5 SEEN, Urine WBC 5-10 SEEN, Ur Squamous Epith Cells 5-10 SEEN, Urine Bacteria 3+, Urine Mucus 2+ 04/02/22 18:05: Urine Opiates Screen NEGATIVE, Urine Methadone Screen NEGATIVE, Ur Barbiturates Screen NEGATIVE, Ur Phencyclidine Scrn NEGATIVE, Ur Amphetamines Screen POSITIVE H, MDMA (Ecstasy) Screen POSITIVE H, U Benzodiazepines Scrn NEGATIVE, Urine Cocaine Screen NEGATIVE, U Cannabinoids Screen NEGATIVE, Ur Drug Screen Comment 04/02/22 20:55: COVID-19 (KANDY) Not Detected 04/03/22 06:56: WBC 8.7, RBC 4.31, Hgb 11.8 L, Hct 37.0, MCV 85.8, MCH 27.4, MCHC 31.9 L, RDW Std Deviation 47.8 H, RDW Coeff of Natalie 15.3 H, Plt Count 148 L, MPV 12.0, Immature Gran % (Auto) 0.900, Neut % (Auto) 83.9 H, Lymph % (Auto) 7.2 L, Gilliam % (Auto) 6.9, Eos % (Auto) 0.9, Baso % (Auto) 0.2, Absolute Neuts (auto) 7.3, Absolute Lymphs (auto) 0.63 L, Nucleated RBC % 0.2, Differential Comment SCANNED 04/03/22 06:56: Sodium Cancelled, Potassium Cancelled, Chloride Cancelled, Carbon Dioxide Cancelled, Anion Gap Cancelled, BUN Cancelled, Creatinine Cancelled, Estim Creat Clear Calc Cancelled, Est GFR (MDRD) Af Amer Cancelled, Est GFR (MDRD) Non-Af Cancelled, BUN/Creatinine Ratio Cancelled, Glucose Cancelled, Calcium Cancelled, Total Bilirubin Cancelled, AST Cancelled, ALT Cancelled, Alkaline Phosphatase Cancelled, Total Protein Cancelled, Albumin Cancelled, Globulin Cancelled, Albumin/Globulin Ratio Cancelled Micro: Microbiology 04/02/22 18:15 Urine, Catheterized Urine Culture - Preliminary Alpha hemolytic organism 04/02/22 17:27 Nasal Secretion SARS-CoV-2 Antigen (Rapid) - Final Radiography Diagnostic Testing: Radiology Impression Abdomen/Pelvis CT 04/02/22 17:19 IMPRESSION: . Small bilateral pleural effusions and massive ascites with diffuse mesenteric edema and edema in the subcutaneous fat consistent with nonspecific anasarca Electronically Signed: Dannie De La Torre MD at 18:20 EDT , Physical Exam Const alert Constitutional Narrative: agitated, crying and moaning in pain HEENT head/scalp atraumatic, moist oral mucous membranes and oropharynx normal Head and Scalp: normocephalic Mouth: oral and palatal mucosa normal Neck no lymphadenopathy and supple Resp Resp Narrative: diminished breath sounds bibasally, no wheezes or crackles. On room air. Cardio regular rate, regular rhythm, S1 normal heart sound, S2 normal heart sound and no murmurs GI GI Narrative: abdomen distended, mild generalized tenderness, positive shifting dullness, has large incisional hernia which is nontender. Extremity Extremity Narrative: bilateral above knee amputation Neuro oriented x3 and CN's II-XII intact bilaterally Sensorium / Orientation: awake Psych Psych Narrative: agitated, tearful and very anxious Assessment & Plan Assessment/Plan (1) Ascites: PLAN: Plan #Ascites with abnormal liver pathology * Liver enzymes are elevated and bilirubin is also elevated. Has marked ascites. * Gastroenterology consulted. For paracentesis tomorrow. This will be both diagnostic and therapeutic. * On Tylenol as needed. Will DC this in light of elevated liver enzymes. * Etiology of liver disease is not very clear. Patient states she has had ascites in the past and required paracentesis but does not know what caused it. * covid negative, hepatitis panel pending * on buprenrphine for pain * #Hypotonic hypovolemic hyponatremia: sodium was 128 yesterday. Difficult stick so unable to obtain blood samples today. #Polysubstance abuse * Urine tox positive for amphetamine and ecstasy. She has a history of chronic opioid use with resultant endocarditis and deep tissue infection s/p bilateral lower extremity amputation and mitral valve bioprosthetic valve replacement and pacemaker as well as tricuspid valve repair. * Patient is adamant she did not use drugs in the last 2 to 3 years and does not know where the amphetamine and ecstasy in her urine came from. * Counseled not to use drugs * #Asymptomatic bacteriuria: * Does not have any urinary symptoms. Urine showed 3+ bacteria but has chronic colonization of her urine. * Urine cultures ordered. 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
[2022-04-03] MEDS: Ensure Plus High Protein 120 ML LIQUID PO (16:29)
[2022-04-03] MEDS: 0.9% Normal Saline 1,000 ML 100 ML IV (19:01)
[2022-04-03] MEDS: Pantoprazole Sodium 40 MG Tablet PO (19:01)
[2022-04-03] MEDS: hydrOXYzine 10 MG Tablet PO (22:37)
[2022-04-04] VITALS (16 sets, daily range): BP systolic 94–109; BP diastolic 42–67; PULSE 58–73; RESP 18–20; TEMP 36.5–37.2; O2SAT 88–99
--- NOTE | 2022-04-04 | FLU_PTH ---
PATIENT: DAYNA MCNALLY LOC: MS3 U#:[id number] AGE/SX: 36/F ROOM: MS319 RE04/02/[address]: Dr. Mathieu Vizcaino DO : 1985 BED: 1 DIS: 04/06/2022 SPEC #: [id number] RECD: 04/04/22 14:56 STATUS: LENIN REMax #: [id number] HARITHA: 04/04/22 00:[address]: Mathieu Vizcaino DEPT: CYTOLOGY RECD BY: Carlo Denson ENTERED: 04/05/22 09:00 SP TYPE: Fluid OTHR DR: DO Dr. Sue Bojorquez MD Dr. Prakash Chand, MD Tissues: PARACENTESIS FLUID Procedures: Special Stain Group II Surgery Specimen Level IV Cytospin Fluid HEADER OPERATION: Paracentesis PRE-OP DIAGNOSIS: Ascites TISSUE SUBMITTED: Paracentesis fluid for cytology DIAGNOSIS CYTOLOGY Paracentesis fluid for cytology (cytospin and cell block): Negative for malignant cells. AM:fabi 04/06/2022 CYTOLOGY STUDY Slides are reviewed. CYTOLOGY GROSS Received is 50 ml of yellow cloudy fluid labeled with the patient's name and and designated per the requisition as paracentesis. Submitted for cytology preparation including cell block. / fabi 04/05/2022 TC:5 CPT: 92350, 69404
[2022-04-04] MEDS: 0.9% Normal Saline 1,000 ML 100 ML IV ×2 (03:58→14:50)
--- NOTE | 2022-04-04 05:00 | US_ITS ---
PROCEDURE: Ultrasound guided paracentesis. DATE OF EXAMINATION: 04/04/2022. INDICATION: Female, 36 years old. Ascites. PHYSICIAN: Carlos Resendez M.D. TECHNIQUE: The risks, benefits, and alternatives to the procedure were explained to the patient. The specific risks of bleeding, infection, and damage to bowel were detailed and accepted. Witnessed informed consent was obtained. The abdomen was ultrasonographically surveyed. An appropriate pocket of fluid was identified at the left lower quadrant. The skin were cleaned and prepped in the usual sterile fashion. Using ultrasound guidance, the peritoneal cavity was accessed with a 5-Mongolian paracentesis needle/catheter system. The trocar was removed. A total of 500 ml of ciera-colored fluid were removed from the peritoneal cavity. The fluid collection is multiseptated. There is loculation of the peritoneal fluid. The catheter was removed and a sterile dressing was applied. The procedure was well tolerated. US/Paracentesis with US IMPRESSION: Ultrasound guided paracentesis. Electronically Signed: Carlos Resendez MD at 14:59 EDT ,
[2022-04-04] MEDS: Menthol/Lanolin/Calamine/Znox 113 GM Tube 1 APPLIC TOPICAL ×3 (06:23→21:04)
[2022-04-04] MEDS: Buprenorphine HCl 2 MG TAB.SUBL SL ×2 (06:27→23:46)
[2022-04-04] MEDS: Acetaminophen 325 MG Tablet 650 MG PO (06:27)
[2022-04-04] MEDS: Pantoprazole Sodium 40 MG Tablet PO (08:43)
--- NOTE | 2022-04-04 13:31 | CASEMGMT ---
SUKUMAR HUNTER Assessment: Face to Face with pt for initial transition planning/care coordination assessment. SUKUMAR HUNTER introduced self and role at [facility], pt voices understanding and consents to assessment. Pt is A/O x4 and answers all questions appropriately at this time. Care providers, pharmacy, and demographics verified/updated. Admitting Dx: Ascites Abdomen Distension. PCP: Gricelda. Specialists: None. Preferred Pharmacy: [facility]. Insurance: [employer]. Prescription Benefit: yes. LW/HPOA: Pt states her mother is POA. Pt encouraged to bring in paperwork to be scanned in. LNOK: Pt lives with her father, Guevara Ramirez and stepmother Afshan Rodriguez. Living Arrangements: Pt lives with her father and stepmother in a two story home. There is one step to get into the home. Pt reports being I in ADLs. Transportation: Pt's stepmother, mother, or other family members transport her. DME/HHC/SNF: Pt is a double amputee and has a wheelchair. Pt denies any other DME. Pt denies any HHC. Pt reports a hx of SNF stay at [facility]. Pt states no concerns with going home at time of dc. Pt states no further concerns/needs. CM to follow. Advised pt to ask CM if any further question/concerns/needs arise, voices understanding. Pt Goal: Home. Plan: Home.
[2022-04-04] MEDS: Lidocaine 2% (20 ml mdv) 20 ML Vial INFILT (14:20)
--- NOTE | 2022-04-04 14:40 | NURSING ---
Call from radiology pt is coming back up they took 500cc off from her paracentesis. There is a small dressing over the LLQ that is D&I.
[2022-04-04 15:04] LABS: Cytology, Body Fluid / CSF SEE PATHOLOGY REPORT
[2022-04-04] MEDS: Mag Hydrox/Al Hydrox/Simeth 30 ML UDC 60 ML PO (15:46)
[2022-04-04 15:48] LABS: Glucose, Body Fluid < 1 mg/dL (40-70); LDH,Body Fluid 600 Units/l (Not Establ.)
[2022-04-04 15:58] LABS: Body Fluid Mononuclear WBC # 0.208 10^3/uL; Body Fluid Mononuclear WBC % 19.6 %; Body Fluid Polynuclear WBC # 0.854 10^3/uL; Body Fluid Polynuclear WBC % 80.4 %; Body Fluid Total Cells Counted 1.064 10^3/ul; White Blood Count/Body Fluid 1.062 10^3/uL
[2022-04-04 18:02] LABS: Lymphocytes 2 %; Macrophages 1 %; Monocytes 4 %; Neutrophil (Segs) 93 %
[2022-04-04 18:03] LABS: Auto B Fluid Analyzer BKGD Ct COUNTS W/IN LIMITS (W/IN LIMITS)
[2022-04-04 18:06] LABS: Source- Body Fluid ASCITES FLUID
[2022-04-04 18:10] LABS: Appearance/Body Fluid SL CLDY; Color/Body Fluid YELLOW; Specific Gravity, Body Fluid 1.016
[2022-04-04 18:11] LABS: Body Fluid QC Type(s) BF2Q; Red Cell Count/Body Fluid 5 /mm3
--- NOTE | 2022-04-04 19:18 | PCM.PN.HOSP ---
Subjective Subjective Seen and examined today, she underwent a paracentesis with removal of 500 cc of fluid, I talked with gastroenterology by phone today and they recommend administration of midodrine 10 mg 3 times daily with the administration 62.5 g of albumin IV. They will see the patient tomorrow for consultation. Patient will have a CMP repeated tomorrow morning. Objective Data Objective Data Vital Signs: Vital Signs Temp Pulse Resp BP Pulse Ox O2 Del Method O2 Flow Rate 97.7 F L 60 18 94/49 L 95 Nasal Cannula 2 04/04/22 15:45 04/04/22 15:45 04/04/22 15:45 04/04/22 15:45 04/04/22 15:45 04/04/22 15:45 04/04/22 15:45 Oxygen Flow Rate (L/min) [3] 2 Oxygen Flow Rate (L/min) [2] 2 Oxygen Flow Rate (L/min) [1 ( 2 Initial Baseline)] Oxygen Flow Rate (L/min) 2 Oxygen Delivery Method [3] Nasal Cannula Oxygen Delivery Method [2] Nasal Cannula Oxygen Delivery Method [1 ( Nasal Cannula Initial Baseline)] Oxygen Delivery Method Nasal Cannula Weight: 66.8 kg Body Mass Index (BMI) 28.0 Intake & Output: Intake and Output for Last 24 Hours 04/02/22 04/03/22 04/04/22 23:59 23:59 23:59 Intake Total 1000 / 1000 1000 / 1000 1895 / 1895 Output Total 250 / 600 850 / 850 Balance 1000 / 1000 750 / 400 1045 / 1045 Lab / Micro Data Result Diagrams: 04/05/22 06:35 04/05/22 06:35 Labs: Laboratory Results - last 24 hr 04/02/22 14:10: Fluid Glucose < 1 L*, Fluid LDH 600 04/04/22 15:00: Fluid Source ASCITES FLUID, Fluid Color YELLOW, Fluid Appearance SL CLDY, Fluid Specific Grav 1.016, Fluid WBC 1.062, Fluid RBC 5, Fluid Tot Cell Count 1.064 H, Fld Polynuclear WBCs # 0.854, Fld Polynuclear WBCs % 80.4, Fluid Mononuclear WBCs 0.208, Fld Mononuclear WBCs % 19.6, Fluid Neutrophils 93, Fluid Lymphocytes 2, Fluid Monocytes 4, Fluid Macrophages 1, Fl Pathologist Comment May follow, Fluid Comment 2 SEE COMMENT Micro: Microbiology 04/02/22 18:15 Urine, Catheterized Urine Culture - Preliminary Gram positive vic 04/02/22 17:27 Nasal Secretion SARS-CoV-2 Antigen (Rapid) - Final Radiography Diagnostic Testing: Radiology Impression Paracentesis Ultrasound 04/04/22 05:00 IMPRESSION: Ultrasound guided paracentesis. Electronically Signed: Carlos Resendez MD at 14:59 EDT , Physical Exam Const alert, oriented x3 and no apparent distress Constitutional Narrative: Patient appears older than her stated age General Appearance: cooperative, well kempt and well developed Orientation / Consciousness: awake, oriented to person, oriented to place and oriented to time HEENT normocephalic, head/scalp atraumatic and moist oral mucous membranes Eyes PERRL, EOMs intact bilaterally and conjunctivae normal Neck supple, no JVD and thyroid normal General: trachea midline Resp normal respiratory effort, no retractions, no use of accessory muscles and clear to auscultation bilaterally Auscultation: Negative for rales, rhonchi or wheezes Cardio regular rate, regular rhythm, S1 normal heart sound, S2 normal heart sound, no murmurs, no rub and no gallops GI GI Narrative: Patient's abdomen is distended, there is no rebound abdominal tenderness present, there is bowel sounds present in all 4 Extremity Extremity Narrative: 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 Skin no rashes or lesions noted General Skin Exam: no breakdown Neuro oriented x3 and CN's II-XII intact bilaterally Sensorium / Orientation: awake and alert Speech: speech normal Psych Psych Narrative: Patient has flat affect Assessment & Plan Assessment/Plan (1) Ascites: PLAN: Plan 1. Ascites-etiology unclear, suspect underlying liver disease such as cirrhosis, patient will be seen by gastroenterology, again an attempt to remove fluid was made today but only 500 cc of fluid was removed. 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
[2022-04-04] MEDS: Albumin Human 25% (100 mL) 25 GM/100 ML BAG IV ×2 (21:03→22:34)
[2022-04-05] VITALS (17 sets, daily range): BP systolic 101–131; BP diastolic 47–65; PULSE 59–63; RESP 14–18; TEMP 36.4–37.3; O2SAT 87–94
[2022-04-05] MEDS: Ondansetron 4 MG/2 ML Vial IV (00:02)
[2022-04-05] MEDS: 0.9% Saline Lock 10 ML Syringe IV (00:05)
[2022-04-05] MEDS: Albumin Human 25% (50 mL) 12.5 GM/50 ML IV.SOLN IV (00:05)
[2022-04-05] MEDS: 0.9% Normal Saline 1,000 ML 100 ML IV ×2 (05:32→17:49)
[2022-04-05] MEDS: Menthol/Lanolin/Calamine/Znox 113 GM Tube 1 APPLIC TOPICAL ×3 (05:33→22:19)
[2022-04-05 07:18] LABS: ALB/GLOB Ratio 0.8 RATIO (0.9-2.4); AST(SGOT) 29 U/L (15-37); Alanine Aminotransfer ALT/SGPT 52 U/L (13-56); Albumin, Serum 2.4 g/dL (3.2-5.0); Alkaline Phosphatase 92 U/L (45-117); Anion Gap 9 (5-15); BUN 26 mg/dL (7-18); BUN/Creat Ratio 41.7 RATIO (10-20); Calcium,Total 8.3 mg/dL (8.5-10.1); Chloride 103 mmol/L (98-107); Creatinine, Serum 0.62 mg/dL (0.55-1.02); EST Glomerular Filtration Rate 116 mL/min (>60); Est Glom Filt Rate - Afr Amer 140 mL/min (>60); Estimated Creatinine Clearance 91.84 ml/min; Globulin 3.1 g/dL (2.2-4.2); Glucose 107 mg/dL (74-106); Potassium 4.1 mmol/L (3.5-5.1); Protein, Total 5.5 g/dL (6.4-8.2); Sodium Level 133 mmol/L (136-145)
[2022-04-05 07:20] LABS: Absolute Lymphocyte Count 0.52 X10^3/uL (0.83-4.51); Absolute Neutrophil Count 9.6 X10^3/uL (2.0-7.7); Basophil# 0.04 X10^3/uL; Basophil% 0.4 % (0-1); Eosinophil# 0.04 X10^3/uL; Eosinophils% 0.4 % (0-5); Hematocrit 32.5 % (37-47); Hemoglobin 10.9 g/dL (12.0-15.0); Lymphocyte # 0.52 X10^3/ul (0.83-4.51); Lymphocyte % 4.8 % (19-41); Mean Corp Hgb Conc 33.5 g/dL (32-36); Mean Corpuscular Hgb 28.6 pg (27.0-32.0); Mean Corpuscular Volume 85.3 fL (81-99); Mean Platelet Vol. 10.5 fl (6.2-12.0); Monocyte# 0.65 X10^3/uL; NRBC Flagged by Analyzer 0 % (0-5); Neutrophil # 9.55 X10^3/uL (2.7-7.7); Neutrophil % 87.4 % (47-70); POSITIVE DIFFERENTIAL YES; POSITIVE MORPHOLOGY YES; Platelet Count 174 K/mm3 (150-450); RBC Distribution Width CV 15.8 % (11.6-14.6); RBC Distribution Width SD 48.7 fl (35.1-43.9); Red Blood Count 3.81 M/mm3 (4.2-5.4); White Blood Count 10.9 K/mm3 (4.4-11.0)
[2022-04-05 07:21] LABS: Differential Indicated SCAN CRITERIA MET
[2022-04-05 07:40] LABS: Platelet Estimate ADEQUATE (ADEQ)
[2022-04-05 07:41] LABS: Red Cell Morphology NORM C+C NORMAL (NORM C&C)
[2022-04-05 08:39] LABS: Ferritin 321 ng/mL (8-252); Iron 13 ug/dL (50-170); Iron Binding Capacity,Total 205 ug/dL (250-450); LDH 213 U/L (84-246); PERCENT IRON SATURATION 6.3 % (15.0-55.0)
[2022-04-05 08:53] LABS: International Normalized Ratio 1.3; Prothrombin Time (Protime)PT. 15.8 SECONDS (11.7-14.9)
[2022-04-05 08:54] LABS: Partial Thromboplast Time 39.3 Seconds (24.1-36.2)
[2022-04-05] MEDS: Midodrine HCl 5 MG Tablet 10 MG PO ×3 (09:29→17:32)
[2022-04-05] MEDS: Pantoprazole Sodium 40 MG Tablet PO (09:29)
--- NOTE | 2022-04-05 11:04 | NURSING ---
Call from [facility] pt fluid from her paracentesis came back positive group c beta strep. Doctor aware.
--- NOTE | 2022-04-05 11:05 | RAD_ITS ---
STUDY: X-RAY CHEST REASON FOR EXAM: Female, 36 years old. hypoxia TECHNIQUE: PA or AP COMPARISON: 07/19/2018 FINDINGS: Interval sternotomy and prosthetic valve placement. There is a poor inspiratory effort. There is moderate atelectasis or infiltrate at the right base and mild atelectasis or infiltrate at the left base. There is mild elevation of the right hemidiaphragm. There is no demonstrated pleural abnormality. Mild cardiomegaly Normal mediastinum and demetra. Normal visualized pulmonary arteries. Normal visualized aortic arch and descending thoracic aorta. Normal visualized thoracic spine. Normal visualized ribs, clavicles, and shoulders. There is no demonstrated abnormality of the visualized soft tissue structures of the upper abdomen. RAD/Chest 1 View (Portable) IMPRESSION: Interval sternotomy. Interval cardiac valve replacement. Bibasilar infiltrates or atelectasis right greater than left with elevation of right hemidiaphragm. Electronically Signed: Mathieu Espinoza MD, KAYCEE at 12:37 EDT ,
--- NOTE | 2022-04-05 11:36 | ECHOD_ITS ---
Reason For Study: Endocarditis Procedure This was a 2D Doppler, Color Flow transthoracic echocardiogram. Exam performed portable in patient room. Left Ventricle Normal LV size. D shaped septum in systole and diastole. Segmental dysfunction with preserved ejection fraction (see wall motion). The estimated ejection fraction is 55 %. No evidence for diastolic dysfunction. Basal inferoseptal: Hypokinetic. Mid-inferoseptal : Hypokinetic. Septal Waller : Hypokinetic. Right Ventricle Severely dilated right ventricle. Severe global right ventricular systolic dysfunction. Atria Normal left atrium. The right atrium is moderately enlarged. No doppler evidence for ASD. Mitral Valve There is no mitral annular calcification. Mild diffuse mitral valve thickening. Mild-Moderate (1-2+) mitral valve insufficiency. Tricuspid Valve Right ventricular systolic pressure estimated to be 86 mmHg. Severe pulmonary hypertension. Based upon the 2D echocardiographic images obtained there appears to be a stable appearing bioprosthetic tricuspid valve apparatus, however, the valve leaflets are not well visualized and partial restriction of the valve leaflets cannot be excluded.. Moderate transvalvular insufficiency of the tricuspid valve. Aortic Valve Trisinus/trileaflet aortic valve. Normal aortic valve. Pulmonic Valve Normal pulmonic valve. Great Vessels Based upon 2D echocardiographic images obtained the main pulmonary artery appears to be dilated. Pericardium/Pleural No pericardial effusion. MMode/2D Measurements & Calculations LVIDd: 4.1 cm IVSd: 0.81 cm LA dimension: 4.2 cm LVIDs: 2.9 cm LVPWd: 0.80 cm RVDd: 5.5 cm FS: 31.0 % LAV(MOD-sp4): 43.3 ml LA A4 area: 17.0 cm2 RA A4 area: 23.4 cm2 Time Measurements MV dec time: 0.15 sec Doppler Measurements & Calculations MV E max ramón: 103.3 cm/sec Lat Peak E' Ramón: 21.9 cm/sec Med Peak E' Ramón: 7.6 cm/sec MV A max ramón: 78.1 cm/sec E/E' lat: 4.7 E/E' med: 13.6 MV E/A: 1.3 MV V2 max: 108.4 cm/sec MV P1/2t max ramón: 108.4 cm/sec TR max ramón: 440.7 cm/sec MV max P.7 mmHg MV P1/2t: 45.7 msec TR max P.7 mmHg MV V2 mean: 46.8 cm/sec MV dec slope: 695.3 cm/sec2 MV mean P.2 mmHg MVA(P1/2t): 4.8 cm2 MV V2 VTI: 22.9 cm ECHO/Echo Complete Interpretation Summary Segmental dysfunction with preserved ejection fraction (see wall motion). The estimated ejection fraction is 55 %. D shaped septum in systole and diastole. Severely dilated right ventricle. Severe global right ventricular systolic dysfunction. The right atrium is moderately enlarged. Mild diffuse mitral valve thickening. Mild-Moderate (1-2+) mitral valve insufficiency. Based upon the 2D echocardiographic images obtained there appears to be a stabl e appearing bioprosthetic tricuspid valve apparatus, however, the valve leaflets are not we ll visualized and partial restriction of the valve leaflets cannot be excluded.. Moderate transvalvular insufficiency of the tricuspid valve. Based upon 2D echocardiographic images obtained the main pulmonary artery appea rs to be dilated. Right ventricular systolic pressure estimated to be 86 mmHg. Severe pulmonary hypertension. No evidence for diastolic dysfunction. Comment: Based upon the 2D echocardiographic images obtained-no obvious intraca rdiac mass lesion thought compatible with a vegetative process compatible with infectious endocar ditis was appreciated. The above was discussed with Dr. Vizcaino. Ordering Physician: Mathieu Vizcaino Referring Physician: Adina Madison Performed By: Mario Thurston RCS
[2022-04-05 12:08] LABS: HEPATITIS B SURFACE AG Negative (Negative); Hep C Antibodies 0.3 s/co ratio (0.0-0.9); Hepatitis A IgM Antibody Negative (Negative); Hepatitis B Core AB IgM Negative (Negative)
[2022-04-05] MEDS: HYDROcodone Bitartrate/Apap 5/325 Tablet PO ×2 (12:08→22:27)
[2022-04-05] MEDS: Furosemide 40 MG/4 ML Vial IV ×2 (12:37→17:32)
--- NOTE | 2022-04-05 14:02 | CASEMGMT ---
According to [employer] website, the following tertiary facilities are in network: [facility], [place], [facility], [facility], [facility], [facility] and .
[2022-04-05 15:10] LABS: Pathologist Comment/Body Fluid Reviewed
--- NOTE | 2022-04-05 17:04 | PN.HOSP_ITS ---
Subjective Subjective Patient was seen and examined today, I had a lengthy conversation with her father who states that the patient has had a long history of drug abuse but according to her father, she has had no recent evidence of drug abuse. Patient underwent bilateral lower leg amputations approximately 4 years ago and according to her father has had a total of 3 different heart valve surgeries over the past several years. The last valvular surgery was approximately 2 years ago. Patient's father stated that at times he is found evidence of feces and urine in her room at home, he feels the patient is not motivated enough to g et out of bed to go to the restroom. Patient's father states the patient has bilateral leg prosthesis but is only worn them 1 time. She has had a history of endocarditis in the past. Patient's paracentesis fluid resulted today and growing out Streptococcus group C, I talked briefly with infectious diseases and placed the patient on IV Zosyn. Also talked with gastroenterology about her care. Today I had ordered an echocardiogram which did not show any evidence of vegetations with the patient's right ventricle was severely enlarged, it appears that the patient's valvular surgery was done on her tricuspid valve. I ordered a chest x-ray on the patient today which showed areas of atelectasis but there was no evidence of any congestive heart failure. I placed the patient on IV Lasix today, patient's blood pressure has been improved today. Patient has been on oxygen via a Ventimask today. I talked with her briefly about her CODE STATUS, she stated that she wanted all measures. Objective Data Objective Data Vital Signs: Vital Signs Temp Pulse Resp BP Pulse Ox O2 Del Method O2 Flow Rate 99.1 F 61 18 101/52 L 94 Venturi Mask 12 04/05/22 15:06 04/05/22 15:06 04/05/22 15:06 04/05/22 15:06 04/05/22 15:06 04/05/22 15:07 04/05/22 15:07 FiO2 50 04/05/22 15:07 Oxygen Flow Rate (L/min) [3] 2 Oxygen Flow Rate (L/min) [2] 2 Oxygen Flow Rate (L/min) [1 ( 2 Initial Baseline)] Oxygen Flow Rate (L/min) 12 Oxygen Delivery Method [3] Nasal Cannula Oxygen Delivery Method [2] Nasal Cannula Oxygen Delivery Method [1 ( Nasal Cannula Initial Baseline)] Oxygen Delivery Method Venturi Mask Weight: 69.2 kg Body Mass Index (BMI) 28.0 Intake & Output: Intake and Output for Last 24 Hours 04/03/22 04/04/22 04/05/22 23:59 23:59 23:59 Intake Total 1000 / 1000 2611 / 2611 515 / 515 Output Total 250 / 600 850 / 1000 150 / 150 Balance 750 / 400 1761 / 1611 365 / 365 Lab / Micro Data Result Diagrams: 04/05/22 06:35 04/05/22 06:35 Labs: Laboratory Results - last 24 hr 04/02/22 19:30: Hepatitis A IgM Ab Negative, Hep Bs Antigen Negative, Hep B Core IgM Ab Negative, Hepatitis C Ab (EIA) 0.3, Hep C Ab Comment Comment 04/04/22 15:00: Fluid Source ASCITES FLUID, Fluid Color YELLOW, Fluid Appearance SL CLDY, Fluid Specific Grav 1.016, Fluid WBC 1.062, Fluid RBC 5, Fluid Tot Cell Count 1.064 H, Fld Polynuclear WBCs # 0.854, Fld Polynuclear WBCs % 80.4, Fluid Mononuclear WBCs 0.208, Fld Mononuclear WBCs % 19.6, Fluid Neutrophils 93, Fluid Lymphocytes 2, Fluid Monocytes 4, Fluid Macrophages 1, Fl Pathologist Comment Reviewed, Fluid Comment 2 SEE COMMENT 04/05/22 06:35: Sodium 133 L, Potassium 4.1, Chloride 103, Carbon Dioxide 21.0, Anion Gap 9, BUN 26 H, Creatinine 0.62, Estim Creat Clear Calc 91.84, Est GFR (MDRD) Af Amer 140, Est GFR (MDRD) Non-Af 116, BUN/Creatinine Ratio 41.7 H, Glucose 107 H, Calcium 8.3 L, Total Bilirubin 1.80 H, AST 29, ALT 52, Alkaline Phosphatase 92, Total Protein 5.5 L, Albumin 2.4 L, Globulin 3.1, Albumin/Globulin Ratio 0.8 L 04/05/22 06:35: WBC 10.9, RBC 3.81 L, Hgb 10.9 L, Hct 32.5 L, MCV 85.3, MCH 28.6, MCHC 33.5 D, RDW Std Deviation 48.7 H, RDW Coeff of Natalie 15.8 H, Plt Count 174, MPV 10.5, Immature Gran % (Auto) 1.000 H, Neut % (Auto) 87.4 H, Lymph % (Auto) 4.8 L, [place] % (Auto) 6.0, Eos % (Auto) 0.4, Baso % (Auto) 0.4, Absolute Neuts (auto) 9.6 H, Absolute Lymphs (auto) 0.52 L, Nucleated RBC % 0, Platelet Estimate ADEQUATE, RBC Morphology NORM C+C 04/05/22 06:35: PT 15.8 H, INR 1.3, APTT 39.3 H 04/05/22 06:35: Iron 13 L, TIBC 205 L, Iron Saturation 6.3 L, Ferritin 321 H, Lactate Dehydrogenase 213 Micro: Microbiology 04/04/22 14:10 Fluid - Paracentesis (Abd) Gram Stain - Final 04/04/22 14:10 Fluid - Paracentesis (Abd) Body Fluid Culture - Preliminary Streptococcus group C 04/02/22 18:25 Blood Culture (Wb) - Anticubital Right Blood Culture - Preliminary No growth in 48 hours. 04/02/22 17:35 Blood Culture (Wb) - Left Hand Blood Culture - Preliminary No growth in 48 hours. 04/02/22 18:15 Urine, Catheterized Urine Culture - Final Lactobacillus gasseri 04/02/22 17:27 Nasal Secretion SARS-CoV-2 Antigen (Rapid) - Final Radiography Diagnostic Testing: Radiology Impression Chest X-Ray 04/05/22 11:05 IMPRESSION: Interval sternotomy. Interval cardiac valve replacement. Bibasilar infiltrates or atelectasis right greater than left with elevation of right hemidiaphragm. Electronically Signed: Mathieu Espinoza MD, KAYCEE at 12:37 EDT , Echocardiogram 04/05/22 11:36 Interpretation Summary Segmental dysfunction with preserved ejection fraction (see wall motion). The estimated ejection fraction is 55 %. D shaped septum in systole and diastole. Severely dilated right ventricle. Severe global right ventricular systolic dysfunction. The right atrium is moderately enlarged. Mild diffuse mitral valve thickening. Mild-Moderate (1-2+) mitral valve insufficiency. Based upon the 2D echocardiographic images obtained there appears to be a stable appearing bioprosthetic tricuspid valve apparatus, however, the valve leaflets are not well visualized and partial restriction of the valve leaflets cannot be excluded.. Moderate transvalvular insufficiency of the tricuspid valve. Based upon 2D echocardiographic images obtained the main pulmonary artery appears to be dilated. Right ventricular systolic pressure estimated to be 86 mmHg. Severe pulmonary hypertension. No evidence for diastolic dysfunction. Comment: Based upon the 2D echocardiographic images obtained-no obvious intracardiac mass lesion thought compatible with a vegetative process compatible with infectious endocarditis was appreciated. The above was discussed with Dr. Vizcaino. Ordering Physician: Mathieu Vizcaino Referring Physician: Adina Madison Performed By: Mario Thurston RCS Physical Exam Const alert, oriented x3 and no apparent distress Constitutional Narrative: Patient appears older than her stated age, she appears unwell, patient appears lethargic at the time my examination General Appearance: cooperative and well developed Orientation / Consciousness: awake, oriented to person, oriented to place and oriented to time HEENT normocephalic, head/scalp atraumatic and moist oral mucous membranes Eyes PERRL, EOMs intact bilaterally and conjunctivae normal Neck supple, no JVD and thyroid normal General: trachea midline Resp normal respiratory effort, no retractions and no use of accessory muscles Resp Narrative: Decreased breath sounds were noted bilaterally. Auscultation: Negative for rales, rhonchi or wheezes Cardio regular rate, regular rhythm, S1 normal heart sound, S2 normal heart sound, no murmurs, no rub and no gallops GI soft to palpation GI Narrative: Abdomen is distended, there is no rebound abdominal tenderness noted, there is g eneralized abdominal tenderness noted to palpation Extremity Extremity Narrative: Patient has a remote left below the knee amputation, patient also has a remote right [id number] amputation Skin no rashes or lesions noted General Skin Exam: no breakdown Neuro oriented x3, CN's II-XII intact bilaterally, no focal motor deficits and no s ensory deficits noted Sensorium / Orientation: awake and alert Speech: speech normal Psych Psych Narrative: Patient is lethargic today, she responds appropriately to questions. Assessment & Plan Assessment/Plan (1) Cirrhosis: (2) Ascites: PLAN: Plan 1. Ascites-etiology unclear, suspect underlying liver disease such as cirrhosis, patient will be seen by gastroenterology, again an attempt to remove fluid was made today but only 500 cc of fluid was removed. 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 Echocardiogram today showed no signs of vegetations on the valves #5 positive tox screen for amphetamines and ecstasy-patient denies current drug usage #6 hypoxic respiratory failure-exact etiology unclear at this time, patient had atelectasis on her chest x-ray today but there is no signs of pulmonary edema. I will attempt diuresis to see if this changes her oxygen requirement #7 spontaneous bacterial peritonitis-patient's peritoneal fluid culture grew out group C strep, again I started the patient on Zosyn and she will be seen by infectious diseases #8 severe pulmonary hypertension-complicates care, management, recovery, and prognosis, again the patient was placed on IV Lasix today, I do not think she needs to see cardiology at this time. Further note: I had talked to the patient about being transferred to [facility] for further care and work-up of her medical problems, she consented to this and and I talked with [facility] today at the main campus and accepted the patient, unfortunately at this time they do not have a bed available however. Charges/Coding Visit Charges Inpatient E&M: 24091 Subs Hosp L2
--- NOTE | 2022-04-05 17:56 | CON.PCM_ITS ---
Assessment & Plan Assessment/Plan (1) Ascites: PLAN: Spontaneous bacterial peritonitis likely secondary from ascites. I am not sure where the current bacteria that in her ascites is coming from. Recommend ID consultation. She will need to be on prophylaxis for SBP after completing a course for spontaneous bacterial peritonitis. (2) Cirrhosis: PLAN: She likely has cirrhosis with ascites secondary to chronic hepatitis C. She will need work-up for other liver diseases such as autoimmune hepatitis, secondary hemochromatosis secondary to IV drug abuse, David's disease, alpha-1 antitrypsin disease or infiltrative disease such as lymphoma, amyloidosis, sarcoidosis. Recommend to check alpha-fetoprotein. Recommend to check ammonia level, lactate, LDH, INR. She has been having intermittent thrombocytopenia from unknown source possibly nutritional versus chronic hepatitis C with a subsequent vasculitis. Her kidney function seems to be okay at this time. Her hypotension, ascites is consistent with cirrhosis. She should likely be transferred to a higher level of care. (3) Chronic hepatitis: PLAN: Chronic hepatitis C likely untreated. Recommend to check PCR RNA quant. Recommend also to recheck her for hepatitis B. 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 increasing abd ominal distention over the past week.? History of similar she is required paracentesis in the past however states that was 2 years ago.? It is unclear which hospital perform this procedure was not done here.? Extensive medical history.? She states she has a umbilical hernia as been enlarged for a while.? Denies any pain there.? Extensive previous IV drug history with endocarditis and bacteremia causing sepsis with lower extremity amputations.? This was over 4 years ago.? Reviewing records have seen her back in 2019 with his history.? She had initial valve repair 4 years ago states it was a revision done March of last year at [facility].? Follow-up with cardiology 1 time after her procedure and has not followed up since.? Reports only medication would be metoprolol as needed.? Also states she followed up with hepatology at .? She denies any cirrhosis history.? She has been evaluated, she did not continue to follow-up there.? She denies any fevers.? Reports has not ate or drank anything in 1 week.? Denies nausea or vomiting. She underwent evaluation and was discovered to have a large volume of ascites with small bilateral pleural effusions. She underwent 500 mL of s erosanguineous fluid removed. It is growing out Streptococcus. She still has very discomfort and on high flow oxygen to breathe and maintain a saturation above 92%. [facility] Medical History (Updated 04/05/22 @ 18:[address] Mp Fagan, DO) Ex-smoker Heroin abuse History of leg amputation Pacemaker Umbilical hernia Home Medications NK 01/23/21 [History Last Taken Unknown] Allergy/AdvReac Type Severity Reaction Status Date / Time No Known Allergies Allergy Verified 04/02/22 16:51 Surgical History (Updated 04/05/22 @ 17:[address] Mathieu Vizcaino DO) S/P tricuspid valve replacement Social History Smoking Status: Former smoker ROS ROS Narrative Detailed 14 ROS is unobtainable as patient is in distress crying for abdominal pain. Constitutional: Reports fatigue and weakness. Dehydrated HEENT: Reports systems reviewed and no addt'l complaints, except as documented Respiratory/Chest: Denies chest pain, shortness of breath at rest Gastrointestinal: Denies coffee ground emesis, hematemesis or vomiting. Rest abdominal pain as described in HPI Genitourinary: Denies burning urination. Musculoskeletal: Bilateral above-knee amputee Neurologic: Denies seizure-like activity. Details could not be obtained skin: No ulcer. Redness. Endocrinology: Details could not be obtained. Hematologic/Lymphatic: Pancytopenia reports systems reviewed and no addt'l complaints, except as documented Rest 14 ROS are negative except as mentioned in HPI Physical Exam Const alert Constitutional Narrative: agitated, crying and moaning in pain HEENT head/scalp atraumatic, moist oral mucous membranes and oropharynx normal Head and Scalp: normocephalic Mouth: oral and palatal mucosa normal Neck no lymphadenopathy and supple Resp Resp Narrative: diminished breath sounds bibasally, no wheezes or crackles. On room air. Cardio regular rate, regular rhythm, S1 normal heart sound, S2 normal heart sound and no murmurs GI GI Narrative: abdomen distended, mild generalized tenderness, positive shifting dullness, has large incisional hernia which is nontender. Extremity Extremity Narrative: bilateral above knee amputation Neuro oriented x3 and CN's II-XII intact bilaterally Sensorium / Orientation: awake Psych Psych Narrative: agitated, tearful and very anxious Lab / Micro Data Result Diagrams: 04/05/22 06:35 04/05/22 06:35 Labs: Laboratory Results - last 24 hr 04/02/22 19:30: Hepatitis A IgM Ab Negative, Hep Bs Antigen Negative, Hep B Core IgM Ab Negative, Hepatitis C Ab (EIA) 0.3, Hep C Ab Comment Comment 04/04/22 15:00: Fluid Source ASCITES FLUID, Fluid Color YELLOW, Fluid Appearance SL CLDY, Fluid Specific Grav 1.016, Fluid WBC 1.062, Fluid RBC 5, Fluid Tot Cell Count 1.064 H, Fld Polynuclear WBCs # 0.854, Fld Polynuclear WBCs % 80.4, Fluid Mononuclear WBCs 0.208, Fld Mononuclear WBCs % 19.6, Fluid Neutrophils 93, Fluid Lymphocytes 2, Fluid Monocytes 4, Fluid Macrophages 1, Fl Pathologist Comment Reviewed, Fluid Comment 2 SEE COMMENT 04/05/22 06:35: Sodium 133 L, Potassium 4.1, Chloride 103, Carbon Dioxide 21.0, Anion Gap 9, BUN 26 H, Creatinine 0.62, Estim Creat Clear Calc 91.84, Est GFR (MDRD) Af Amer 140, Est GFR (MDRD) Non-Af 116, BUN/Creatinine Ratio 41.7 H, Glucose 107 H, Calcium 8.3 L, Total Bilirubin 1.80 H, AST 29, ALT 52, Alkaline Phosphatase 92, Total Protein 5.5 L, Albumin 2.4 L, Globulin 3.1, Albumin/Globulin Ratio 0.8 L 04/05/22 06:35: WBC 10.9, RBC 3.81 L, Hgb 10.9 L, Hct 32.5 L, MCV 85.3, MCH 28.6, MCHC 33.5 D, RDW Std Deviation 48.7 H, RDW Coeff of Natalie 15.8 H, Plt Count 174, MPV 10.5, Immature Gran % (Auto) 1.000 H, Neut % (Auto) 87.4 H, Lymph % (A uto) 4.8 L, [place] % (Auto) 6.0, Eos % (Auto) 0.4, Baso % (Auto) 0.4, Absolute Neuts (auto) 9.6 H, Absolute Lymphs (auto) 0.52 L, Nucleated RBC % 0, Platelet Estimate ADEQUATE, RBC Morphology NORM C+C 04/05/22 06:35: PT 15.8 H, INR 1.3, APTT 39.3 H 04/05/22 06:35: Iron 13 L, TIBC 205 L, Iron Saturation 6.3 L, Ferritin 321 H, Lactate Dehydrogenase 213 Micro: Microbiology 04/04/22 14:10 Fluid - Paracentesis (Abd) Gram Stain - Final 04/04/22 14:10 Fluid - Paracentesis (Abd) Body Fluid Culture - Preliminary Streptococcus group C 04/02/22 18:25 Blood Culture (Wb) - Anticubital Right Blood Culture - Preliminary No growth in 48 hours. 04/02/22 17:35 Blood Culture (Wb) - Left Hand Blood Culture - Preliminary No growth in 48 hours. 04/02/22 18:15 Urine, Catheterized Urine Culture - Final Lactobacillus gasseri Radiology Impression Chest X-Ray 04/05/22 11:05 IMPRESSION: Interval sternotomy. Interval cardiac valve replacement. Bibasilar infiltrates or atelectasis right greater than left with elevation of right hemidiaphragm. Electronically Signed: Mathieu Espinoza MD, KAYCEE at 12:37 EDT , Echocardiogram 04/05/22 11:36 Interpretation Summary Segmental dysfunction with preserved ejection fraction (see wall motion). The estimated ejection fraction is 55 %. D shaped septum in systole and diastole. Severely dilated right ventricle. Severe global right ventricular systolic dysfunction. The right atrium is moderately enlarged. Mild diffuse mitral valve thickening. Mild-Moderate (1-2+) mitral valve insufficiency. Based upon the 2D echocardiographic images obtained there appears to be a stable appearing bioprosthetic tricuspid valve apparatus, however, the valve leaflets are not well visualized and partial restriction of the valve leaflets cannot be excluded.. Moderate transvalvular insufficiency of the tricuspid valve. Based upon 2D echocardiographic images obtained the main pulmonary artery appears to be dilated. Right ventricular systolic pressure estimated to be 86 mmHg. Severe pulmonary hypertension. No evidence for diastolic dysfunction. Comment: Based upon the 2D echocardiographic images obtained-no obvious intracardiac mass lesion thought compatible with a vegetative process compatible with infectious endocarditis was appreciated. The above was discussed with Dr. Vizcaino. Ordering Physician: Mathieu Vizcaino Referring Physician: Adina Madison Performed By: Mario Thurston RCS Charges/Coding Visit Charges Inpatient E&M: 93050 Init Hosp L3
[2022-04-06 03:00] VITALS: BP 102/50; PULSE 60; RESP 14; TEMP 36.5; O2SAT 94
[2022-04-06 04:00] VITALS: BP 96/51; PULSE 60; RESP 22; TEMP 36.5; O2SAT 95
[2022-04-06] MEDS: HYDROcodone Bitartrate/Apap 5/325 Tablet PO (04:17)
--- NOTE | 2022-04-06 05:27 | DS.PCM_ITS ---
Providers Date of Admission: 04/02/22 Primary Care Physician: Dr. Adina Madison, DO Consultations 04/02/22 20:27 Consult: Gastroenterology Routine Consulting Provider: [facility] Reason for Consult: Abnormal Liver chemistry EMERGENT Consult: No Notified: Yes Date Notified: 04/02/22 Time Notified: 20:27 Method of Notification: ED Physician Initiated 04/05/22 10:54 Consult: Infectious Disease Routine Consulting Provider: Abhijit Tobias Reason for Consult: positive strep on paracentesis EMERGENT Consult: No Notified: Yes Date Notified: 04/05/22 Time Notified: 11:08 Method of Notification: Text Reason For Visit: ASCITES ABD DISTENSION Diagnosis Discharge Diagnosis (1) Cirrhosis: Status: Acute Code(s): K74.60 - Unspecified cirrhosis of liver (2) Ascites: Status: Acute Code(s): R18.8 - Other ascites Qualifiers: Ascites type: other type Qualified Code(s): R18.8 - Other ascites (3) Peritonitis: Status: Acute Code(s): K65.9 - Peritonitis, unspecified Medications at Discharge Home Medications NK 01/23/21 Hospital Course Operations None Procedures Paracentesis Summary of Care Provided Hospital Course: This is a 36-year-old female presents with abdominal pain and not eating or drinking for 1 week and ascites. Patient underwent a paracentesis on the that removed 500 cc of fluid. Gastroenterology was consulted and initially recommended started midodrine and IV albumin. Went gastrology did see the patient patient was found to peritonitis with Streptococcus. Patient was started on piperacillin/tazobactam. Gastroenterology felt the patient may have cirrhosis due to chronic hepatitis C but also recommend additional work-up for other liver diseases but with her being hypotensive recommend transfer to a tertiary facility. [facility] was contacted on the and agreed to acc ept the patient. Our hospital was notified around 5 AM the patient had a bed or at [facility]. Patient did have a 2D echocardiogram that showed an EF of 55%. Severely dilated right ventricle. Severe global right ventricular systolic dysfunction. Right atrium moderately enlarged. Stable appearing bioprosthetic tricuspid valve apparatus. Though the leaflets not well visualized. Main pulmonary artery appear to be dilated. Right ventricular systolic pressure estimated to be 86 mmHg. Severe pulmonary hypertension. No evidence of endocarditis. Patient's drug screen was positive for amphetamines as well as MDMA. Patient was found to be living in [facility] where there was evidence of feces and urine in her room. Patient just apparently not showing motivation to utilize the restroom. During her hospitalization, her oxygenation remained tenuous requiring Ventimask at 1 point but then was able to be de-escalated to high flow oxygen at 5 L. Despite the patient's young age, she is very ill individual. Prognosis long- term is guarded. Physical Exam Const alert Constitutional Narrative: Cachectic. Appears much older than stated age. HEENT HEENT Narrative: Temporal wasting. Resp normal respiratory effort and no retractions Cardio regular rate and regular rhythm Cardio Narrative: 3 out of 6 left sternal murmur with palpable thrill. GI GI Narrative: Distended but not tight. Pacemaker in the left upper quadrant palpable without any surrounding erythema. Large right lower quadrant ventral hernia. Extremity Extremity Narrative: Below the knee amputation on the left. [id number] potation on the right. General Extremity: edema bilateral Neuro Sensorium / Orientation: awake and alert Weight / BMI Weight Weight: 69.2 kg Body Mass Index (BMI) 28.0 ABG / Lab / Microbiology Data Result Diagrams: 04/05/22 06:35 04/05/22 06:35 Laboratory: Laboratory Results - last 24 hr 04/02/22 19:30: Hepatitis A IgM Ab Negative, Hep Bs Antigen Negative, Hep B Core IgM Ab Negative, Hepatitis C Ab (EIA) 0.3, Hep C Ab Comment Comment 04/04/22 15:00: Fl Pathologist Comment Reviewed 04/05/22 06:35: Sodium 133 L, Potassium 4.1, Chloride 103, Carbon Dioxide 21.0, Anion Gap 9, BUN 26 H, Creatinine 0.62, Estim Creat Clear Calc 91.84, Est GFR (MDRD) Af Amer 140, Est GFR (MDRD) Non-Af 116, BUN/Creatinine Ratio 41.7 H, Glucose 107 H, Calcium 8.3 L, Total Bilirubin 1.80 H, AST 29, ALT 52, Alkaline Phosphatase 92, Total Protein 5.5 L, Albumin 2.4 L, Globulin 3.1, Albumin/Globulin Ratio 0.8 L 04/05/22 06:35: WBC 10.9, RBC 3.81 L, Hgb 10.9 L, Hct 32.5 L, MCV 85.3, MCH 28.6, MCHC 33.5 D, RDW Std Deviation 48.7 H, RDW Coeff of Natalie 15.8 H, Plt Count 174, MPV 10.5, Immature Gran % (Auto) 1.000 H, Neut % (Auto) 87.4 H, Lymph % (Auto) 4.8 L, [place] % (Auto) 6.0, Eos % (Auto) 0.4, Baso % (Auto) 0.4, Absolute Neuts (auto) 9.6 H, Absolute Lymphs (auto) 0.52 L, Nucleated RBC % 0, Platelet Estimate ADEQUATE, RBC Morphology NORM C+C 04/05/22 06:35: PT 15.8 H, INR 1.3, APTT 39.3 H 04/05/22 06:35: Iron 13 L, TIBC 205 L, Iron Saturation 6.3 L, Ferritin 321 H, Lactate Dehydrogenase 213 Microbiology: Microbiology 04/04/22 14:10 Fluid - Paracentesis (Abd) Gram Stain - Final 04/04/22 14:10 Fluid - Paracentesis (Abd) Body Fluid Culture - Preliminary Streptococcus group C 04/02/22 18:25 Blood Culture (Wb) - Anticubital Right Blood Culture - Preliminary No growth in 48 hours. 04/02/22 17:35 Blood Culture (Wb) - Left Hand Blood Culture - Preliminary No growth in 48 hours. 04/02/22 18:15 Urine, Catheterized Urine Culture - Final Lactobacillus gasseri 04/02/22 17:27 Nasal Secretion SARS-CoV-2 Antigen (Rapid) - Final Radiography Diagnostic Testing: Radiology Impression Chest X-Ray 04/05/22 11:05 IMPRESSION: Interval sternotomy. Interval cardiac valve replacement. Bibasilar infiltrates or atelectasis right greater than left with elevation of right hemidiaphragm. Electronically Signed: Mathieu Espinoza MD, KAYCEE at 12:37 EDT , Echocardiogram 04/05/22 11:36 Interpretation Summary Segmental dysfunction with preserved ejection fraction (see wall motion). The estimated ejection fraction is 55 %. D shaped septum in systole and diastole. Severely dilated right ventricle. Severe global right ventricular systolic dysfunction. The right atrium is moderately enlarged. Mild diffuse mitral valve thickening. Mild-Moderate (1-2+) mitral valve insufficiency. Based upon the 2D echocardiographic images obtained there appears to be a stable appearing bioprosthetic tricuspid valve apparatus, however, the valve leaflets are not well visualized and partial restriction of the valve leaflets cannot be excluded.. Moderate transvalvular insufficiency of the tricuspid valve. Based upon 2D echocardiographic images obtained the main pulmonary artery appears to be dilated. Right ventricular systolic pressure estimated to be 86 mmHg. Severe pulmonary hypertension. No evidence for diastolic dysfunction. Comment: Based upon the 2D echocardiographic images obtained-no obvious intracardiac mass lesion thought compatible with a vegetative process compatible with infectious endocarditis was appreciated. The above was discussed with Dr. Vizcaino. Ordering Physician: Mathieu Vzicaino Referring Physician: Adina Madison Performed By: Mario Thurston RCS Meaningful Use Info Meaningful Use Diagnoses (Choose all that apply): None applicable Discharge Plan Admission Admit Date/Time: 04/02/22 19:31 Attending Provider: Mathieu Vizcaino Primary Care Provider: Adina Madison Consulting Providers: Geoff Caba ; Sue Herring ; Abhijit Tobias Instructions Patient Instructions: TALON RN Paracentesis Dc Discharge Orders/Prescriptions Prescriptions: No Action NK Referrals / Follow Up: Adina Madison DO [Primary Care Provider] - Disposition Disposition (needs filled in before D/C Order can be placed): Acute Care Hospital Charges/Coding Visit Charges Inpatient E&M: 42454 Disch Hosp
[2022-04-06 05:28] VITALS: BP 96/51; PULSE 60; RESP 22; TEMP 36.5; O2SAT 95
[2022-04-06] MEDS: Menthol/Lanolin/Calamine/Znox 113 GM Tube 1 APPLIC TOPICAL (05:32)
[2022-04-06 06:05] VITALS: PULSE 60
[2022-04-06 07:10] VITALS: BP 97/56; PULSE 60; RESP 18; TEMP 37.1; O2SAT 92
[2022-04-06 07:25] VITALS: BP 97/56; PULSE 60; RESP 18; TEMP 37.1; O2SAT 92
[2022-04-06 11:21] LABS: Amylase Body Fluid 23 U/L (.)
[2022-04-06 21:07] LABS: Ceruloplasmin 24.7 mg/dL (19.0-39.0)
[2022-04-07 17:20] LABS: Anti-Mitochondrial AB <20.0 Units (0.0-20.0)
[2022-04-07 17:21] LABS: Anti-Smooth Muscle ABS 7 Units (0-19)
[2022-04-07 17:31] LABS: Copper, Serum or Plasma 81 ug/dL (80-158); Haptoglobin 220 mg/dL (33-278)
== END 2022-04-06 07:25 | disposition short-term general hospital (02) ==
LOC: ED 17:39 → MS3 19:56
PROVIDERS: Internal Medicine Gastroenterology; Admitting Provider Internal Medicine; Emergency Provider Emergency Medicine; PCP Family Medicine; Visit Provider Internal Medicine
DX: K74.60 Unspecified cirrhosis of liver (principal); J96.01 Acute respiratory failure with hypoxia; K65.2 Spontaneous bacterial peritonitis; I27.20 Pulmonary hypertension, unspecified; R18.8 Other ascites; E87.1 Hypo-osmolality and hyponatremia; B18.2 Chronic viral hepatitis C; Z89.511 Acquired absence of right leg below knee; Z89.512 Acquired absence of left leg below knee; K42.9 Umbilical hernia without obstruction or gangrene; Z80.0 Family history of malignant neoplasm of digestive organs; Z87.891 Personal history of nicotine dependence; Z95.3 Presence of xenogenic heart valve
CPT/HCPCS: 36415; 49083; 71045; 74176; 80048; 80053; 80074; 80076; 80307; 81001; 81002; 82150; 82390; 82525; 82728; 82945; 83010; 83516; 83540; 83550; 83615; 83690; 83735; 84100; 84703; 85025; 85610; 85730; 87040; 87070; 87075; 87077; 87086; 87088; 87186; 87205; 87635; 87811; 88108; 88305; 88313; 89050; 93005; 93306; 97162; 97166; 97802; 99251; 99285; J7030; P9047; A4216; G0463; J1940; J2405; U0003; U0005